=== PATIENT | female | born 1980 | race Caucasian/White ===

== ENCOUNTER 2020-03-27 08:38 | Outpatient (CLI) | payer OTHER, SELFPAY ==
--- NOTE | ~2020-03-27 | MM_ITS ---
EXAMINATION: MM screening don BI w chava HISTORY: Baseline screening mammogram TECHNIQUE: Craniocaudal and mediolateral oblique 3-D tomosynthesis images were obtained and synthetic 2-D images were generated. CAD analysis was submitted and interpreted. COMPARISON: None, baseline BREAST PARENCHYMAL COMPOSITION: The breasts are heterogeneously dense, which may obscure small masses . FINDINGS: There is no evidence of suspicious mass, calcification, or architectural distortion to sugg est malignancy in either breast. IMPRESSION: 1. No mammographic evidence of malignancy. 2. Recommend routine screening mammography in one year. BI-RADS Category 1: Negative Reviewed, dictated and finalized at location A.
== END 2020-03-27 08:39 | disposition home or self-care (01) ==
LOC: ANHIMG 08:41
PROVIDERS: PCP Physician Assistant; Visit Provider Obstetrics & Gynecology
DX: Z12.31 Encounter for screening mammogram for malignant neoplasm of breast (principal)
CPT/HCPCS: 77063; 77067

== ENCOUNTER 2020-08-03 06:54 | Outpatient (NON) | payer OTHER, SELFPAY ==
[2020-08-04 06:47] LABS: SARS-CoV-2 RNA PCR Negative
== END 2020-08-03 06:55 ==
LOC: ANHCOVIDDT 06:58
PROVIDERS: PCP Physician Assistant; Visit Provider Physician Assistant
DX: R52 Pain, unspecified (principal); Z20.828 Contact with and (suspected) exposure to other viral communicable diseases
CPT/HCPCS: 87635; C9803; U0003

== ENCOUNTER 2020-08-23 07:00 | Outpatient (NON) | payer OTHER, SELFPAY ==
[2020-08-24 12:14] LABS: SARS-CoV-2 RNA PCR Positive
== END 2020-08-23 07:01 ==
LOC: ANHCOVIDDT 07:05
PROVIDERS: PCP Physician Assistant; Visit Provider Physician Assistant
DX: U07.1 COVID-19 (principal)
CPT/HCPCS: 87635; C9803; U0003

== ENCOUNTER 2020-08-26 09:27 | Emergency (ER) | payer OTHER, SELFPAY ==
--- NOTE | 2020-08-26 09:29 | ED.GENADULT ---
HPI - General Adult General Chief complaint: Wound/Laceration Stated complaint: lt index finger laceration Time Seen by Provider: 08/26/20 09:29 Source: patient Mode of arrival: ambulatory Limitations: no limitations History of Present Illness HPI narrative: 40-year-old female patient presents to the [facility] with complaints of laceration to the tip of the left index finger. Patient states she was cutting some meat and the night slipped and cut her finger. Patient unsure when her last tetanus shot was however she states that her youngest child is about 7 years old. Denies any numbness or tingling to the fingertip at this time. Related Data Home Medications Medication Instructions Recorded Confirmed No Home Medications 08/26/20 08/26/20 Allergies Allergy/AdvReac Type Severity Reaction Status Date / Time No Known Allergies Allergy Unknown Verified 08/26/20 09:37 Review of Systems Review of Systems: Narrative: CONSTITUTIONAL: Denies fever, chills, or sweats. EYES: Denies visual changes, redness, or discharge. ENT: Denies rhinorrhea, congestion, sore throat, or otalgia. CARDIOVASCULAR: Denies chest pain, palpitations, or edema. RESPIRATORY: Denies cough or dyspnea. GASTROINTESTINAL: Denies abdominal pain, nausea, vomiting, or diarrhea. GENITOURINARY: Denies dysuria or hematuria. SKIN: Denies rash or itching. Positive laceration to left index finger MUSCULOSKELETAL: Denies back pain, joint pain, or myalgia. NEUROLOGIC: Denies headache, numbness, or weakness. PSYCHIATRIC: Denies anxiety or depression. [facility] Past Medical History Medical History (Updated 08/26/20 @ 09:46 by SANDRINE Montoya) No significant past medical history Family History Family History Mother Hypertension Family history of elevated blood lipids Family history of diabetes mellitus in first degree relative Father Patient's father is in good health Sibling Patient's sister is in good health Grandparent Family history of malignant neoplasm of breast Family history of malignant neoplasm of male breast Social History Social History Smoking status: Never smoker Alcohol intake: current Comments At the time of my signature I agree with nursing past medical history, surgical, social, and family history. There is no relevant family history pertinent to the presenting complaint. Exam Narrative: Exam Narrative: GENERAL: Well-appearing, well-nourished, and in no acute distress. HEAD: Normocephalic, atraumatic. EYES: PERRLA and EOMI. ENT: Nares clear, no rhinorrhea or epistaxis. Mucous membranes moist. NECK: Supple. No lymphadenopathy CHEST: Clear to auscultation. No respiratory distress. HEART: Regular rate and rhythm. No murmur heard. Normal peripheral pulses. ABDOMEN: Soft, nontender, nondistended, normal active bowel sounds. EXTREMITIES: Normal range of motion. No edema. SKIN: Warm, dry, no rash. Patient has a small laceration noted to the tip of the left index finger right above the DIP joint but does not involve the DIP joint. The laceration measures approximately 1 cm. There is no gaping noted does appear to be well approximated. There is no active bleeding at this time. Patient does have excellent range of motion to the finger as well as good cap refill. NEURO: No focal deficits. Alert and oriented x3. Course Vital Signs Vital signs: Vital Signs Temperature 37.3 C 08/26/20 09:38 Pulse Rate 78 08/26/20 09:38 Respiratory Rate 16 08/26/20 09:38 Blood Pressure 111/82 08/26/20 09:38 Pulse Oximetry 100 08/26/20 09:38 Temperature 37.3 C 08/26/20 09:38 Pulse Rate 78 08/26/20 09:38 Respiratory Rate 16 08/26/20 09:38 Blood Pressure 111/82 08/26/20 09:38 Pulse Oximetry 100 08/26/20 09:38 Vital signs reviewed Procedures Laceration Laceration 1: Date: 08/26/20 Time
[2020-08-26 09:38] VITALS: BP 111/82; PULSE 78; RESP 16; TEMP 37.3; O2SAT 100
[2020-08-26] MEDS: TETANUS,DIPHTHERIA,AC PERTUSSIS ADULT (0.5 ML) BOOSTRIX IM (09:43)
== END 2020-08-26 09:55 | disposition home or self-care (01) ==
PROVIDERS: Emergency Provider Nurse Practitioner Family; PCP Physician Assistant
DX: S61.211A Laceration without foreign body of left index finger without damage to nail, initial encounter (principal); W26.0XXA Contact with knife, initial encounter; Z23 Encounter for immunization
CPT/HCPCS: 12001; 90471; 90715; 99212; G0463

== ENCOUNTER 2021-01-21 12:58 | Emergency (ER) | payer OTHER, SELFPAY ==
[2021-01-21 13:07] VITALS: BP 137/90; PULSE 98; RESP 16; TEMP 36.5; O2SAT 100
--- NOTE | 2021-01-21 13:36 | ED.URI ---
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 She also reports headache. Pain significantly increases with swallowing. She currently rates her pain 10/10. Denies cough, congestion, rhinorrhea, shortness of breath, difficulty swallowing, nausea, vomiting, diarrhea, or any additional symptoms. She has been vaccinated against COVID-19. She has tried no [id number] interventions prior to arrival. States she has had strep throat a few times in the past and her symptoms were very similar. MD elicited complaint: sore throat Related Data Home Medications Medication Instructions Recorded Confirmed No Home Medications 08/26/20 01/21/21 Allergies Allergy/AdvReac Type Severity Reaction Status Date / Time No Known Allergies Allergy Unknown Verified 01/21/21 13:02 Review of Systems Review of Systems: Narrative: CONSTITUTIONAL: Denies body aches, fever, chills, or sweats. EYES: Denies visual changes, redness, or discharge. ENT: Denies rhinorrhea, congestion, or otalgia.+ Sore throat CARDIOVASCULAR: Denies chest pain, palpitations, or edema. RESPIRATORY: Denies cough or dyspnea. GASTROINTESTINAL: Denies abdominal pain, nausea, vomiting, or diarrhea. GENITOURINARY: Denies dysuria or hematuria. SKIN: Denies rash, itching, or wounds. MUSCULOSKELETAL: Denies back pain, joint pain, or myalgia. NEUROLOGIC: Denies headache, numbness, tingling, or weakness. PSYCH: Denies depression or anxiety. [facility] Past Medical History Medical History (Updated 01/21/21 @ 13:38 by Conchita Frazier, SANDRINE, ) No significant past medical history Family History Family History Mother Hypertension Family history of elevated blood lipids Family history of diabetes mellitus in first degree relative Father Patient's father is in good health Sibling Patient's sister is in good health Grandparent Family history of malignant neoplasm of breast Family history of malignant neoplasm of male breast Social History Social History Smoking status: Never smoker Alcohol intake: current Gender identity (if verbalized by the patient): Female Sexual Orientation (if Verbalized by the Patient): Straight or Heterosexual Comments At time of signature, I have reviewed and agree with nursing past medical, surgical, social and family history unless otherwise noted. Please see nursing chart for further information. There is no relevant family history pertinent to the presenting complaint Exam Narrative: Exam Narrative: GENERAL: Well-appearing, well-nourished, and in moderate pain distress. HEAD: Normocephalic, atraumatic. EYES: EOMI. No redness or drainage. Conjunctivae normal. ENT: Mucous membranes pink and moist. Nares clear. No rhinorrhea. TMs normal bilaterally. Throat normal. Uvula midline. NECK: Normal AROM. Supple. No lymphadenopathy. CHEST: No respiratory distress. Clear to auscultation. HEART: Regular rate and rhythm. No murmur appreciated. Normal peripheral pulses. EXTREMITIES: Normal range of motion. No edema. SKIN: Warm, dry, no rash. Capillary refill normal. Normal skin turgor. NEURO: No focal deficits. Alert and oriented x3. Gait steady. PSYCH: Normal affect. No signs of depression or anxiety. Course Course Emergency Course: Patient's exam is essentially normal. It is possible that since her symptoms only began 3 hours prior to arrival that it is too early to detect strep throat on a rapid screening test. Patient became tearful when I told he
== END 2021-01-21 13:44 | disposition home or self-care (01) ==
PROVIDERS: Emergency Provider Nurse Practitioner; PCP Physician Assistant
DX: J02.9 Acute pharyngitis, unspecified (principal)
CPT/HCPCS: 87081; 87880; 99213; G0463

== ENCOUNTER → 2021-04-09 09:14 | Outpatient (CLI) | payer OTHER, SELFPAY ==
--- NOTE | ~2021-04-09 | CT_ITS ---
EXAMINATION: CT sinus wo con DATE: 04/09/2021 09:29 INDICATION: Sinusitis TECHNIQUE: Computed tomography (CT) of the paranasal sinuses was performed without intravenous contra st. The dose-length product was 273.81 mGy-cm. Automated exposure control and iterative reconstructio n technique were employed. COMPARISON: None FINDINGS: There is mucosal thickening of the frontal, ethmoid, sphenoid and maxillary sinuses. The os tiomeatal units are occluded. Mastoids are pneumatized. Leftward nasal septal deviation. IMPRESSION: 1. Moderate pansinusitis. Reviewed, dictated and finalized at location A. IMPRESSION: 1. Moderate pansinusitis.
== END ==
PROVIDERS: Visit Provider Nurse Practitioner Family
DX: J32.9 Chronic sinusitis, unspecified (principal)
CPT/HCPCS: 70486

== ENCOUNTER 2021-04-29 15:52 | Outpatient (CLI) | payer OTHER, SELFPAY ==
--- NOTE | ~2021-04-29 | MM_ITS ---
EXAMINATION: MM screening [facility] BI w chava HISTORY: Screening mammogram TECHNIQUE: Craniocaudal and mediolateral oblique 3-D tomosynthesis images were obtained and synthetic 2-D images were generated. CAD analysis was submitted and interpreted. COMPARISON: 03/27/2020 BREAST PARENCHYMAL COMPOSITION: The breasts are heterogeneously dense, which may obscure small masses . FINDINGS: RIGHT BREAST: An obscured mass is present in the anterior third of the slightly upper and outer breas t. LEFT BREAST: An asymmetry is present in the posterior third of the central breast on the craniocaudal view. IMPRESSION: 1. Bilateral breast findings as described above. 2. Additional mammographic views and possible breast ultrasound are recommended. BI-RADS Category 0: Incomplete: Needs additional imaging evaluation. Reviewed, dictated and finalized at location A. IMPRESSION: 1. Bilateral breast findings as described above. 2. Additional mammographic views and possible breast ultrasound are recommended . BI-RADS Category 0: Incomplete: Needs additional imaging evaluation.
== END 2021-04-29 15:53 | disposition home or self-care (01) ==
LOC: ANHIMG 15:54
PROVIDERS: Visit Provider Obstetrics & Gynecology
DX: Z12.31 Encounter for screening mammogram for malignant neoplasm of breast (principal); R92.8 Other abnormal and inconclusive findings on diagnostic imaging of breast
CPT/HCPCS: 77063; 77067

== ENCOUNTER 2021-05-24 13:49 | Outpatient (CLI) | payer OTHER, SELFPAY ==
--- NOTE | ~2021-05-24 | MMUS_ITS ---
EXAMINATION: MM diagnostic don BI w chava, US breast BI complete HISTORY: Abnormal findings on 04/29/2021 screening mammogram TECHNIQUE: Additional 3-D tomosynthesis images of both breasts were performed and synthetic 2-D image s were generated. CAD analysis was submitted and interpreted. High resolution complete bilateral anjana st ultrasound was performed. COMPARISON: 04/29/2021 bilateral digital screening mammogram FINDINGS: MAMMOGRAPHIC FINDINGS: There is a 2 cm partially circumscribed rounded opacity in the outer mid right breast. There is heterogeneously dense breast tissue, which may obscure additional masses. ULTRASOUND: Right breast: 12:00 1 cm from nipple: 2.1 x 2 x 2.3 cm simple cyst with through transmission posterior enhancement 6:00 4 cm from nipple: 5.4 x 4.0 x 7.1 mm simple cyst No suspicious solid lesion or shadowing is detected in the right breast. Left breast: No suspicious mass or shadowing, cyst or other significant finding. IMPRESSION: 1. Benign findings 2. Routine mammographic screening is recommended. BI-RADS Category 2: Benign finding(s). Reviewed, dictated and finalized at location A. IMPRESSION: 1. Benign findings 2. Routine mammographic screening is recommended. BI-RADS Category 2: Benign finding(s).
== END 2021-05-24 13:50 | disposition home or self-care (01) ==
LOC: ANHIMG 13:54
PROVIDERS: Visit Provider Obstetrics & Gynecology
DX: R92.8 Other abnormal and inconclusive findings on diagnostic imaging of breast (principal)
CPT/HCPCS: 76641; 77062; 77066; G0279

== ENCOUNTER 2021-12-02 01:27 | Day surgery (SDC) | payer OTHER, SELFPAY ==
[2021-11-21 14:45] VITALS: BMI 29.2
--- NOTE | 2021-11-30 12:48 | P.PNAN_ITS ---
Anes - Initial Pre Proc Eval Procedure: Operation Date: 12/02/21 08:30 Proposed Procedures p Colonoscopy - Rich Spears MD Date/Time: 11/30/21 12:48 Surgeon: Rich Spears MD Pre Op Diagnosis: family hx of colon ca, constipation Patient Data Age: 41 Gender: F Height: 1.63 m Weight: 77.2 kg Allergies Allergy/AdvReac Type Severity Reaction Status Date / Time No Known Allergies Allergy Unknown Verified 12/02/21 07:08 Home Medications Medication Instructions Recorded Confirmed Type linaclotide [Linzess] 145 mcg PO DAILY 11/21/21 11/21/21 History tolterodine 4 mg PO DAILY 11/21/21 11/21/21 History Patient hx anesthesia problems: none Family hx anesthesia problems: none Results Review: All pre-operative results and documents have been reviewed as part of the pre-operative evaluation. [facility] Past Medical History Medical History (Updated 12/02/21 @ 07:55 by Rich Spears MD) Anxiety Family history of colon cancer in mother GERD (gastroesophageal reflux disease) IBS (irritable bowel syndrome) No significant past medical history Family History Family History Mother Hypertension Family history of elevated blood lipids Family history of diabetes mellitus in first degree relative Father Patient's father is in good health Sibling Patient's sister is in good health Grandparent Family history of malignant neoplasm of breast Family history of malignant neoplasm of male breast Social History Social History (System 11/19/21 @ 12:37 by Gaby Moore) Smoking status: Never smoker Alcohol intake: current Drinks per week: 2 Alcohol use details: Socially Substance use type: does not use Living arrangements: alone Gender identity (if verbalized by the patient): Female Sexual Orientation (if Verbalized by the Patient): Straight or Heterosexual Spiritual care concerns: No Anes - Eval Final PreProcedure Day of Procedure 11/30/21 12:48 Patient weight: overweight Heart: regular rate and rhythm Lungs: clear to auscultation and normal air movement Airway: Mallampati scale class II Neurological: alert and oriented Last oral intake: >/= 8 hours ASA classification: II Emergent: no Anesthetic plan: proceed Anesthesia type and monitoring: general GIVS and standard monitoring Results Review: All pre-operative results and documents have been reviewed as part of the pre-operative evaluation. Informed Consent: The patient's anesthetic plan and its attendant risks and benefits were discussed with the patient/family/POA. Questions were solicited and answers provided to the satisfaction of the patient/family/POA.
[2021-12-02 07:14] VITALS: BP 141/81; PULSE 88; RESP 20; TEMP 36.6; O2SAT 99; BMI 29.5
[2021-12-02] MEDS: LACTATED RINGERS 1,000 ML 150 ML IV CONT (07:24)
--- NOTE | 2021-12-02 07:54 | PM.HPGS ---
History of Present Illness History of Present Illness Consent: Risks, benefits, and alternatives have been discussed and questions answered. Patient agrees to proceed with procedure. Chief complaint: family hx of colon ca, constipation Narrative: Sameera Arceo is a 41 year old female here for first screening colonoscopy, mother had colon cancer Review of Systems Constitutional: Constitutional: Denies headache(s) and Denies weakness Eyes: Eyes: Denies blurry vision ENT: Reports Normal hearing present, Denies headache(s) and Denies neck pain Cardiovascular: Cardiovascular: Denies chest pain and Denies dyspnea Respiratory: Respiratory: Denies dyspnea Gastrointestinal: Gastrointestinal: Reports no additional gastrointestinal complaints Genitourinary: Genitourinary: Denies dysuria Musculoskeletal: Musculoskeletal: Denies neck pain Integumentary/Breasts: Skin/Breast: Denies dry skin Neurologic: Reports Normal hearing present, Denies headache(s) and Denies weakness Psychiatric: Psychiatric: Denies anxiety Endocrine: Endocrine: Denies change in body appearance Hematologic/Lymphatic: Hematologic/Lymphatic: Denies easy bleeding Allergic/Immunologic: Allergic/Immunologic: Denies urticaria PMFSH Past Medical History Medical History (Updated 12/02/21 @ 07:55 by Rich Spears MD) Anxiety Family history of colon cancer in mother GERD (gastroesophageal reflux disease) IBS (irritable bowel syndrome) No significant past medical history Family History Family History Mother Hypertension Family history of elevated blood lipids Family history of diabetes mellitus in first degree relative Father Patient's father is in good health Sibling Patient's sister is in good health Grandparent Family history of malignant neoplasm of breast Family history of malignant neoplasm of male breast Social History Social History (System 11/19/21 @ 12:37 by Gaby Moore) Smoking status: Never smoker Alcohol intake: current Drinks per week: 2 Alcohol use details: Socially Substance use type: does not use Living arrangements: alone Gender identity (if verbalized by the patient): Female Sexual Orientation (if Verbalized by the Patient): Straight or Heterosexual Spiritual care concerns: No Meds Home Medications and Allergies Home Medications Medication Instructions Recorded Confirmed Type linaclotide [Linzess] 145 mcg PO DAILY 11/21/21 11/21/21 History tolterodine 4 mg PO DAILY 11/21/21 11/21/21 History Allergies Allergy/AdvReac Type Severity Reaction Status Date / Time No Known Allergies Allergy Unknown Verified 12/02/21 07:08 Vital Signs Vital Signs - 24 hr 12/02/21 07:14 Temperature 97.9 F Pulse Rate 88 Respiratory Rate 20 Blood Pressure 141/81 H Pulse Oximetry 99 Exam Const: General: comfortable and no acute distress HENMT: General nose exam: Normal nares present Eyes: General: appearance normal, both eyes and all related structures Neck: Neck: no JVD Resp: Auscultation: clear to auscultation bilaterally Cardio: Rate: regular rate Rhythm: regular rhythm GI: Inspection: non-distended GI Palp: Yes Soft to palpation Skin: General skin exam: normal color Neuro: General: gait normal Speech: normal speech Extrem: General: normal to inspection Psych: Mental Status: mental status grossly normal Assessment and Plan Assessment and plan (1) Family history of colon cancer in mother: Code(s): Z80.0 - Family history of malignant neoplasm of digestive organs Status: Acute Assessment and Plan: colonoscopy
[2021-12-02 08:17] VITALS: BP 104/72; PULSE 68; RESP 16; O2SAT 100
[2021-12-02 08:27] VITALS: BP 100/60; PULSE 60; RESP 18; O2SAT 100
[2021-12-02 08:37] VITALS: BP 101/65; PULSE 61; RESP 16; O2SAT 100
== END 2021-12-02 08:51 | disposition home or self-care (01) ==
PROVIDERS: PCP Physician Assistant; Visit Provider Internal Medicine Gastroenterology
PROC: 0DJD8ZZ Inspection of Lower Intestinal Tract, Via Natural or Artificial Opening Endoscopic (ICD-10-PCS; CPT 45378; principal; 2021-12-02 08:30)
DX: Z12.11 Encounter for screening for malignant neoplasm of colon (principal); K64.8 Other hemorrhoids; K58.1 Irritable bowel syndrome with constipation; Z80.0 Family history of malignant neoplasm of digestive organs
CPT/HCPCS: 45378; J2001; J2704; J7120

== ENCOUNTER 2022-04-01 10:51 | Emergency (ER) | payer OTHER, SELFPAY ==
--- NOTE | 2022-04-01 10:59 | ED.FEMALEGU ---
HPI - Female Genitourinary General Chief complaint: Urogenital-Female Stated complaint: uti complaint Time Seen by Provider: 04/01/22 11:10 Source: patient Mode of arrival: ambulatory Limitations: no limitations History of Present Illness HPI Narrative: Ms. Lance is a 42-year-old female patient presenting to the clinic today with complaints of left sided abdominal discomfort and urinary symptoms that began Thursday. She reports that she had a little bit of burning on Thursday night but nothing since. States that her period should not be coming for another 3 weeks and she has some cramping in the left abdomen. Had intercourse with her on Thursday and did not have any pain or discomfort with this. She denies any vaginal discharge or odors. She has a history of constipation and last bowel movement was 2 days ago. She denies any blood in her stools. Related Data Home Medications Medication Instructions Recorded Confirmed linaclotide 145 mcg capsule 145 mcg PO DAILY 11/21/21 04/01/22 (Linzess) tolterodine 4 mg capsule,extended 4 mg PO DAILY 11/21/21 04/01/22 release 24 hr fluoxetine 10 mg capsule 10 mg PO DAILY 04/01/22 04/01/22 Allergies Allergy/AdvReac Type Severity Reaction Status Date / Time No Known Allergies Allergy Unknown Verified 04/01/22 11:03 Review of Systems Review of Systems: Pertinent positives per HPI. Patient denies any fever, chills, rash, headache, visual changes, dizziness, cough, runny nose, sore throat, shortness of breath, chest pain, palpitations, nausea, vomiting, diarrhea, or constipation PMFSH Past Medical History Medical History Anxiety Family history of colon cancer in mother GERD (gastroesophageal reflux disease) IBS (irritable bowel syndrome) No significant past medical history Family History Family History Mother Hypertension Family history of elevated blood lipids Family history of diabetes mellitus in first degree relative Father Patient's father is in good health Sibling Patient's sister is in good health Grandparent Family history of malignant neoplasm of breast Family history of malignant neoplasm of male breast Social History Social History Smoking status: Never smoker Alcohol intake: current Drinks per week: 2 Alcohol use details: Socially Substance use type: does not use Gender identity (if verbalized by the patient): Female Sexual Orientation (if Verbalized by the Patient): Straight or Heterosexual Spiritual care concerns: No Comments At the time of my signature, I reviewed and agree with the nursing past medical, surgical, social, and family history. There is no relevant family history pertinent to the patient complaint. Exam Narrative: General: Well-developed, well nourished, in no apparent distress. Head: Normocephalic, atraumatic. Cardio: Regular rate and rhythm, s1 and s2 normal, no murmur appreciated. Resp: Clear to auscultation bilaterally, no rhonchi, rales, wheezing or rubs. Abdomen: Soft, pliable, bowel sounds present in all quadrants, mild tender to palpation over the left mid quadrant and over the bladder, no organomegly, no CVAT tenderness. Course Course Emergency Course: Portions of this record may have been created with voice recognition software. Level of Care: Express Care Visit Vital Signs Vital signs: Vital signs reviewed MDM - Female Genitourinary MDM Narrative Medical decision making narrative: At the time of visit patient is resting comfortably on exam table. UA positive for 3+ leukocytes and 1+ blood. We will send for culture. I will start the patient on a prescription for Macrobid and supportive measures were discussed. She voiced understanding of discharge instructions and agrees to the treatment plan. Mike
[2022-04-01 11:03] VITALS: BP 123/74; PULSE 66; RESP 18; TEMP 36.4; O2SAT 100
== END 2022-04-01 11:25 | disposition home or self-care (01) ==
PROVIDERS: Emergency Provider Nurse Practitioner Family; PCP Physician Assistant
DX: N39.0 Urinary tract infection, site not specified (principal); K21.9 Gastro-esophageal reflux disease without esophagitis; F41.9 Anxiety disorder, unspecified
CPT/HCPCS: 81003; 87086; 99213; G0463

== ENCOUNTER 2022-06-19 16:27 | Outpatient (CLI) | payer OTHER, SELFPAY ==
--- NOTE | ~2022-06-19 | MM_ITS ---
EXAMINATION: MM screening [facility] BI w chava HISTORY: Screening mammogram TECHNIQUE: Craniocaudal and mediolateral oblique 3-D tomosynthesis images were obtained and synthetic 2-D images were generated. CAD analysis was submitted and interpreted. COMPARISON: 05/24/2021, 04/29/2021, 03/27/2020 BREAST PARENCHYMAL COMPOSITION: The breasts are heterogeneously dense, which may obscure small masses . FINDINGS: No suspicious mass, calcification, or architectural distortion are identified in either rabia ast to suggest malignancy. There has been no suspicious interval change. IMPRESSION: 1. No mammographic evidence of malignancy. 2. Recommend routine screening mammography in one year. BI-RADS Category 1: Negative Reviewed, dictated and finalized at location A.
== END 2022-06-19 16:28 | disposition home or self-care (01) ==
PROVIDERS: PCP Physician Assistant; Visit Provider Obstetrics & Gynecology
DX: Z12.31 Encounter for screening mammogram for malignant neoplasm of breast (principal)
CPT/HCPCS: 77063; 77067

== ENCOUNTER 2023-06-26 19:44 | Emergency (ER) | payer OTHER, SELFPAY ==
[2023-06-26 20:10] VITALS: BP 132/92; PULSE 88; RESP 16; TEMP 36.3; O2SAT 100
== END 2023-06-26 22:52 | disposition left against medical advice (07) ==
LOC: ANHED 22:48
PROVIDERS: PCP Physician Assistant
DX: S09.90XA Unspecified injury of head, initial encounter (principal)
CPT/HCPCS: 99199

== ENCOUNTER 2023-08-25 07:42 | Outpatient (CLI) | payer OTHER, SELFPAY ==
--- NOTE | ~2023-08-25 | MM_ITS ---
EXAMINATION: MM screening don BI w chava HISTORY: Screening TECHNIQUE: Craniocaudal and mediolateral oblique 3-D tomosynthesis images were obtained and synthetic 2-D images were generated. CAD analysis was submitted and interpreted. COMPARISON: Comparison to multiple prior studies sequentially, with oldest reviewed study dated 03/27. BREAST PARENCHYMAL COMPOSITION: The breasts are heterogeneously dense, which may obscure small masses . FINDINGS: There is no evidence of suspicious mass, calcification, or architectural distortion to sugg est malignancy in either breast. There has been no suspicious interval change. IMPRESSION: 1. No mammographic evidence of malignancy. 2. Recommend routine screening mammography in one year. BI-RADS Category 1: Negative Reviewed, dictated and finalized at location A. MA MANAGER
== END 2023-08-25 07:43 | disposition home or self-care (01) ==
PROVIDERS: PCP Physician Assistant; Visit Provider Obstetrics & Gynecology
DX: Z12.31 Encounter for screening mammogram for malignant neoplasm of breast (principal)
CPT/HCPCS: 77063; 77067

== ENCOUNTER 2024-07-18 10:13 | Emergency (ER) | payer OTHER, SELFPAY ==
--- NOTE | ~2024-07-18 | XR_ITS ---
XR chest 2V Ordering provider: Estrella Ruelas NP History: 44 years Female with . fatigue, SOB with exertion . Comparison: None. FINDINGS: MEDIASTINUM: The cardiac silhouette is not enlarged. LUNGS: No infiltrates, effusions or pneumothorax. OTHER: No free air under the diaphragm. IMPRESSION: No acute cardiopulmonary pathology. Reviewed, dictated and finalized at location A. IED PSYCHOLOGY TEACHER
[2024-07-18 10:26] VITALS: BP 130/72; PULSE 95; RESP 18; TEMP 36.4; O2SAT 99
--- NOTE | 2024-07-18 10:38 | ED.URI ---
HPI - URI/Sore Throat General Chief Complaint: Upper Respiratory Infection Stated Complaint: feeling illness Time Seen by Provider: 07/18/24 10:38 Source: patient Mode of arrival: ambulatory Limitations: no limitations History of Present Illness HPI Narrative: 44 yo F presents with c/o fatigue, dull headache for approx. 2 wks. She states prior to that she had URI symptoms that lasted approx. 2 wks and have resolved. exposure to walking pneumonia at work. No CP or SOB. Also has not had period. had vasectomy and she takes hormones for perimenopause but would like test. all systems reviewed and negative except as noted above. Related Data Home Medications Medication Instructions Recorded Confirmed Testosterone Pellet 1 pellet DIRECTED 07/18/24 07/18/24 progesterone micronized 200 mg 200 mg DIRECTED 07/18/24 07/18/24 capsule sertraline 50 mg tablet 50 mg DIRECTED 07/18/24 07/18/24 Allergies Allergy/AdvReac Type Severity Reaction Status Date / Time No Known Allergies Allergy Unknown Verified 07/18/24 10:38 Review of Systems Review of Systems: CONSTITUTIONAL: Denies fever, chills, or sweats. reports fatigue. EYES: Denies visual changes, redness, or discharge. ENT: Denies rhinorrhea, congestion, sore throat, or otalgia. CARDIOVASCULAR: Denies chest pain, palpitations, or edema. RESPIRATORY: Denies cough or dyspnea. GASTROINTESTINAL: Denies abdominal pain, nausea, vomiting, or diarrhea. GENITOURINARY: Denies dysuria or hematuria. SKIN: Denies rash or itching. MUSCULOSKELETAL: Denies back pain, joint pain, or myalgia. NEUROLOGIC: Reports headache. Denies numbness, or weakness. PSYCHIATRIC: Denies anxiety or depression. All other systems reviewed are negative, except as documented in HPI. [facility] Past Medical History Medical History Anxiety Family history of colon cancer in mother GERD (gastroesophageal reflux disease) IBS (irritable bowel syndrome) No significant past medical history Family History Family History Mother Hypertension Family history of elevated blood lipids Family history of diabetes mellitus in first degree relative Father Patient's father is in good health Sibling Patient's sister is in good health Grandparent Family history of malignant neoplasm of breast Family history of malignant neoplasm of male breast Social History Social History Smoking status: Never smoker Alcohol intake: current Drinks per week: 2 Alcohol use details: Socially Substance use type: does not use Living arrangements: alone Gender identity (if verbalized by the patient): Female Sexual Orientation (if Verbalized by the Patient): Straight or Heterosexual Spiritual care concerns: No Comments At time of signature, agree with nursing past medical, surgical, social and family history. There is no relevant family history pertinent to the presenting complaint. Exam Narrative: GENERAL: This is a well-nourished, well-developed patient, in no apparent distress. HEAD: normocephalic, atraumatic. EYES: PERRL. Sclera clear/white. Vision is grossly intact. EARS: External ears normal, auditory canals clear and without drainage, TMs normal without perforation. Hearing grossly intact. NOSE: External nose normal with no obvious nasal discharge, nares without redness, no rhinorrhea. THROAT: Mucous membranes moist, posterior pharynx clear. NECK: Neck supple, non-tender without lymphadenopathy, masses or thyromegaly. CARDIOVASCULAR: Regular rate and rhythm without murmurs, gallops, or rubs. RESPIRATORY: Clear to auscultation. Breath sounds equal bilaterally. No wheezes, rales, or rhonchi. SKIN: warm, Dry, intact with no suspicious lesions or rash, good texture and turgor. NEURO: awake, alert, and oriented to person, place and time. There were no obvious focal neurologic abnormalities. EXTREMITIES: No joint tenderness, effusion, or edema noted. Course Course Level of Care: Express Care Visit Vital Signs Vital signs: Vital Signs Temperature 36.4 C L 07/18/24 10:26 Pulse Rate 95 07/18/24 10:26 Respiratory Rate 18 07/18/24 10:26 Blood Pressure 130/72 07/18/24 10:26 Pulse Oximetry 99 07/18/24 10:26 Oxygen Delivery Room Air 07/18/24 10:26 Temperature 36.4 C L 07/18/24 10:26 Pulse Rate 95 07/18/24 10:26 Respiratory Rate 18 07/18/24 10:26 Blood Pressure 130/72 07/18/24 10:26 Pulse Oximetry 99 07/18/24 10:26 Oxygen Delivery Room Air 07/18/24 10:26 Reviewed MDM - URI/Sore Throat MDM Narrative Medical decision making narrative: patient's exam normal. Normal chest x-ray. Negative urine test. Recommend follow-up with primary care physician for further evaluation with outpatient labs. Patient is aware of diagnosis, understands and agrees to treatment plan. Anticipatory guidance given. Patient agrees to follow-up as directed and is aware of reasons to seek care at the emergency department. Portions of this record may have been created with voice recognition software Discharge Plan Discharge Clinical Impression: Fatigue Qualifiers: Fatigue type: unspecified Qualified Code(s): R53.83 - Other fatigue Patient Disposition: Home, Self-Care Condition: Stable Instructions: Fatigue (ED) Additional Instructions: your chest x-ray was normal today. Your urine test was negative. I recommend following up with your primary care physician to further evaluate your symptoms. Prescriptions: No Action sertraline 50 mg tablet 50 mg DIRECTED progesterone micronized 200 mg capsule 200 mg DIRECTED Testosterone Pellet 1 pellet DIRECTED Follow-up/Referrals: Benoit,KATHERINE Brush [Primary Care Provider] - Stand Alone Forms: Work/School Release IP Time of Disposition: 11:21
[2024-07-18 11:24] LABS: BEDSIDEPREGUCG Negative (Negative)
== END 2024-07-18 11:25 | disposition home or self-care (01) ==
PROVIDERS: Emergency Provider Nurse Practitioner Family; PCP Physician Assistant
DX: R53.83 Other fatigue (principal); K21.9 Gastro-esophageal reflux disease without esophagitis; F41.9 Anxiety disorder, unspecified
CPT/HCPCS: 71046; 81025; 99213; G0463

== ENCOUNTER 2024-07-20 11:12 | Outpatient (CLI) | payer OTHER, SELFPAY ==
--- NOTE | ~2024-07-20 | US_ITS ---
Renal-Bladder ultrasound Clinical History: Abnormal findings of blood chemistry Technique: Real-time sonographic imaging of the kidneys and urinary bladder was performed. Findings: The right kidney measures 9.8 cm in length and the left kidney measures 10.0 cm. There is n o hydronephrosis or renal calculus identified. Renal cortical echogenicity is within normal limits. N o renal mass lesion is identified. The urinary bladder is moderately distended at the time of this exam. No intraluminal echoes are iden tified. No abnormal wall thickening is seen. Impression: Unremarkable ultrasound of the kidneys and urinary bladder. Reviewed, dictated and finalized at location M. LATION ENGINEER Impression: Unremarkable ultrasound of the kidneys and urinary bladder.
== END 2024-07-20 11:13 | disposition home or self-care (01) ==
PROVIDERS: PCP Physician Assistant; Visit Provider Physician Assistant
DX: R79.89 Other specified abnormal findings of blood chemistry (principal)
CPT/HCPCS: 76775

== ENCOUNTER 2024-11-18 15:08 | Outpatient (CLI) | payer OTHER, SELFPAY ==
--- NOTE | ~2024-11-18 | XR_ITS ---
XR ankle LT min 3V Ordering provider: Otoniel Eaton, [place] History: . ANKLE PAIN . Comparison: None. FINDINGS: BONES: No acute fracture or dislocation. JOINT SPACES: The ankle mortise is normal. SOFT TISSUES: Normal. IMPRESSION: No acute osseous abnormality left ankle. Reviewed, dictated and finalized at location A. SCHOOL ASSISTANT PRINCIPAL
== END 2024-11-18 15:09 | disposition home or self-care (01) ==
LOC: MICIMG 15:14
PROVIDERS: PCP Chiropractor Rehabilitation; Visit Provider Chiropractor Rehabilitation
DX: M25.572 Pain in left ankle and joints of left foot (principal)
CPT/HCPCS: 73610

== ENCOUNTER 2025-01-23 15:12 | Outpatient (CLI) | payer OTHER, SELFPAY ==
--- NOTE | ~2025-01-23 | MM_ITS ---
EXAMINATION: MM screening don BI w chava HISTORY: Screening mammogram TECHNIQUE: Craniocaudal and mediolateral oblique 3-D tomosynthesis images were obtained and synthetic 2-D images were generated. CAD analysis was submitted and interpreted. COMPARISON: 09/02/2023, 06/19/2022, 04/29/2021, 03/27/2020 BREAST PARENCHYMAL COMPOSITION:Dense: The breasts are heterogeneously dense, which may obscure small masses. FINDINGS: No suspicious mass, calcification, or architectural distortion are identified in either rabia ast to suggest malignancy. There has been no suspicious interval change. IMPRESSION: No mammographic evidence of malignancy. Recommend routine screening mammography in one year. BI-RADS Category 1: Negative Reviewed, dictated and finalized at location .
--- OUTSIDE RECORDS SUMMARY | 2025-01-23 15:16 | XMS_ITS | Data Portability ---
Author Organization [facility], Main Office Address [address] [place] [address] Assessment No assessment recorded. Plan of Treatment Reminders Order Date Submit Date Provider Last Modified By Organization Details Last Modified Time Details Appointments None recorded. Lab rf (rheumatoid factor), serum 2022 023 [email or web address] [facility], [address], [place], [address], 3 10:43:17 C reactive protein, QN, serum or plasma 2022 023 [email or web address] [facility], [address], [place], [address], 3 10:43:46 ESR (erythrocyt e sedimentati on rate), blood 2022 023 [email or web address] [facility], [address], [place], [address], 3 10:43:37 uric acid, serum or plasma 2022 023 [email or web address] [facility], [address], [place], [address], 3 10:43:54 ccp (cyclic citrullinat ed peptide) iga+igg, serum 2022 023 [email or web address] [facility], [address], [address], [place], [address], 3 10:43:26 ALONDRA (antinuclea r antibodies) screen, ifa, serum 2022 023 [facility], [address], [address] [address], [place], [address], 3 10:45:57 Referral None recorded. Procedures None recorded. Surgeries endoscopy, nasal/sinus , w/ maxillary antrostomy & tissue removal (SURG) 2023 024 [email or web address] Not available 4 17:21:29 endoscopy, nasal/sinus , with frontal sinus exploration (SURG) 2023 024 [email or web address] Not available 4 17:21:30 endoscopy, nasal/sinus , w/ total ethmoidecto my (SURG) 2023 024 [email or web address] Not available 4 17:21:29 endoscopy with removal of sphenoid sinus tissue (SURG) 2023 024 [email or web address] Not available 4 11:39:12 Imaging None recorded. Medication Orders cefdinir 300 mg capsule 2023 024 [facility] #[id number], [address], [place], [id number], 4 16:53:05 Medrol (Ricardo) 4 mg tablets in a dose pack 2023 024 [facility] #[id number], [address], [place], [id number], 4 16:47:07 cefdinir 300 mg capsule 2022 023 [email or web address] [facility] #44462, [address], [place], [id number], 4 16:42:28 Medrol (Ricardo) 4 mg tablets in a dose pack 2022 023 [email or web address] [facility] #59742, [address] [facility], [place], [place], [id number], 16:42:31 Patient TargetsNo targets recorded. Patient Instructions Encounter Date Encounter Id Patient Instructions Last Modified By Organization Details Last Modified Time 12/17/2023 [id number] he has also an excellent candidate for Dupixent given her nasal polyposis and this will be ordered [email or web address] Not available 12/17/2023 16:46:14 Reason for Referral None Reported. Results Created Date Observation Date Name Description Value Unit Range Abnormal Flag Note LastModifiedBy Organization Detail LastModifiedTime 06/30/20 23 06/30/2023 CT, head, w/o contr ast No observ ation record ed. [facility] [address] [place] [address], [place], [address], 06/30/2023 15:48:25 10/09/19 24 08/25/2023 MAMMO , scree latricia, digit al, bilat eral No observ ation record ed. [address], [place], [address], 10/09/2023 11:44:01 10/15/[address], maxil lofac ial, w/o contr ast [facility] [address] [place] [address] Patien t Name: DAMIEN MONAE Access ion #: [id number] Sex: F : 1979 9 Dictat ed By: Hector Reddy ms Attend ing Physic benja: NORRIS CANTRELL Orderi Physic benja: NORRIS CANTRELL Exam Date: 2023 15:10 PM Exam Name: CT MAXILL OFACIA L WO Admitt ing Diagno sis(es ): INDICA TION: Chroni c sinusi tis EXAM DATE: 10/15/19 24 3:10 PM COMPAR JULES: CT scan of the head perfor med on 2022 TECHNI QUE: CT of the sinuse s withou t intrav enous contra st. RADIAT ION DOSE: CTDIvo l: 20.2 mGy, DLP: 546.1 mGy*cm FINDIN GS: There is partia l opacif icatio n of the fronta l sinuse s. There is opacif icatio n of the bilate ral ethmoi d air cells. There is mucous membra ne thicke latricia presen t in the bilate ral maxill yenny sinuse s and spheno id sinus. There are no air-fl uid levels . The mastoi d air cells are clear. The ostiom eatal unit comple xes appear patent bilate rally. The cribri form plate and lamina papyra cea appear grossl y intact . No abnorm ality of the orbits or globes is identi fied. The visual ized brain is unrema rkable . The surrou nding soft tissue s and osseou s struct ures are unrema rkable . There is flatte latricia of the bilate ral mandib ular condyl es and severe narrow ing of the tempor omandi bular joints . IMPRES ISABELL: Parana yvonne sinus diseas e as descri bed. Bilate ral tempor al mandib ular osteoa rthrit is. Electr onical ly Signed by: Hector Reddy ms at 2023 16:07: 41 PM Page 1 [email or web address] [facility] (Imaging) [address] [place], [address], 10/28/2023 12:51:56 10/26/19 24 10/23/2023 CT, sinus es, w/o contr ast No observ ation record ed. [facility] [address] [place] [address], [place], [address], 10/26/2023 08:46:13 Result Notes None recorded. Problems Name Problem SNOMED Code Status Onset Date Resolution Date Notes Provider Name and Address Organization Details Recorded Time Amenorrhea 89500790 Active 2021 Not Available [facility] 3 20:39:16 Generalize d anxiety disorder 65193693 Active 2018 Not Available [facility] 3 20:39:16 Lower urinary tract symptoms 964552057 Active 2021 Not Available [facility] 3 20:39:17 Irritable bowel syndrome characteri zed by constipati on 096947305 Active 2021 Not Available [facility] 3 20:39:17 Anxiety 19597508 Active 2021 Not Available [facility] 3 20:39:17 Failure to lose weight 09304279 Active 2021 Not Available [facility] 3 20:39:17 Pain of multiple joints 62532967 Active 2022 BALTA Dalton [address], [address], [place], [address] , [facility] 3 16:49:38 Closed injury of head 539882237585 Active 2022 BALTA Dalton [address], [address], [place], [address] , [place] [facility] [place] [facility] 3 14:28:28 Chronic sinusitis 81736014 Active 2022 Rekha Herman RN [facility], [place] [facility] [place] [facility] 3 16:53:28 Chronic sinusitis 55827508 Active 2022 Norris Winkler MD [address], [address], [place], [address] , [place] [facility] [place] [facility] 3 17:02:42 Chronic maxillary sinusitis 60363408 Active 2023 Norris Winkler MD [address], [address], [place], [address] , [place] [facility] [place] [facility] 4 17:07:07 Chronic ethmoidal sinusitis 29332694 Active 2023 Norris Winkler MD [address], [address], [place], [address] , [place] [facility] [place] [facility] 4 17:07:19 Chronic frontal sinusitis 04032326 Active 2023 Norris Winkler MD [address] [facility], [address], [place], [address] , [facility] 4 17:07:37 Chronic sphenoidal sinusitis 45623651 Active 2023 Norris Winkler MD [address] [facility], [address], [place], [address] , [facility] 4 17:07:55 Sinusitis co-occurre nt with nasal polyps 0235647320758 2 Active 2023 Norris Winkler MD [address] [facility] [facility] [address], [address], [place], [address] , [facility] 17:04:30 Problem Notes None recorded. Procedures Surgical History Date Name Laterality Status Provider Name and Address Organization Details Recorded Time 12/08/19 24 ENDOSCOPY, NASAL/SINUS, W/ MAXILLARY ANTROSTOMY & TISSUE REMOVAL (SURG) completed Rekha Herman RN [facility] 12/10/2023 11:38:49 12/03/19 22 Date of Last Colonoscopy completed Not Available [facility] 11/12/2022 20:38:39 05/27/20 21 ENDOSCOPY, NASAL/SINUS, WITH FRONTAL SINUS EXPLORATION (SURG) completed Not Available [facility] 11/12/2022 20:40:04 09/14/19 18 dilation of esophagus completed Rekha Herman RN [facility] [employer] [facility] 09/01/2023 16:45:55 Imaging Results Imaging Date Name Status LastModified by Organ [facility] Details LastModified Time 06/30/2023 CT, head, w/o contrast completed [facility] [address] [place] [address] Dr, [place], [address], 06/30/2023 15:48:25 08/25/2023 MAMMO, screening, digital, bilateral completed [address], [place], [address], 10/09/2023 11:44:01 10/15/2023 CT, maxillofacial, w/o contrast completed [address] (Imaging) [address] [facility], [place], [address], 10/28/2023 12:51:56 10/23/2023 CT, sinuses, w/o contrast completed [facility] [address] [place] [address] , [place], [address], 10/26/2023 08:46:13 Procedure Notes None recorded. Medical Equipment None Reported. Allergies No known drug allergies Medications Name Sig Start Date Stop Date Status Note LastModified by Organization Details LastModified Time promethazin e-DM 6.25 mg-15 mg/5 mL oral syrup TAKE 5 ML BY MOUTH AT BEDTIME NEEDED FOR COUGH. active Not Available Not Available No t Available ibuprofen 800 mg tablet 02/18 completed Not Available Not Available Not Available tolterodine ER 4 mg capsule,ext ended release 24 hr TAKE 1 CAPSULE BY MOUTH EVERY DAY active Not Available Not Available No t Available ondansetron HCl 4 mg tablet 02/18 completed Not Available Not Available Not Available prednisone 20 mg tablet TAKE 2 TABLETS BY MOUTH 1 TIME IN THE MORNING DIRECTED 03/21 completed Not Available Not Available Not Available spironolact one 100 mg tablet TAKE 1 TABLET BY MOUTH DAILY active Not Available Not Available No t Available terconazole 0.8 % vaginal cream APPLY SMALL AMOUNT VAGINALLY TO THE AFFECTED AREA EVERY NIGHT AT BEDTIME FOR 3 NIGHTS DIRECTED active Not Available Not Available No t Available acetaminoph en 300 mg-codeine 30 mg tablet TK 1 T PO HS 01/24 completed Not Available Not Available Not Available estradiol 0.05 mg/24 hr semiweekly transdermal patch APPLY 1 PATCH TOPICALLY TO THE SKIN 2 TIMES A WEEK DIRECTED active Not Available Not Available No t Available ciprofloxac in 500 mg tablet TAKE 1 TABLET BY MOUTH EVERY 12 HOURS 11/05 completed Not Available Not Available Not Available sulfamethox azole 800 mg-trimetho prim 160 mg tablet TAKE 1 TABLET BY MOUTH EVERY 12 HOURS 09/24 completed Not Available Not Available Not Available minoxidil 2.5 mg tablet TAKE ONE TABLET BY MOUTH DAILY active Not Available Not Available No t Available tramadol 50 mg tablet TK 1 T PO 2 TO 3 XD 01/24 completed Not Available Not Available Not Available oxycodone-a cetaminophe n 5 mg-325 mg tablet 02/18 completed Not Available Not Available Not Available alprazolam 0.25 mg tablet 02/18 completed Not Available Not Available Not Available famotidine 20 mg tablet Take 1 tablet twice a day by oral route. active Not Available Not Available No t Available benzonatate 100 mg capsule TAKE 1 TO 2 CAPSULES BY MOUTH THREE TIMES DAILY NEEDED FOR COUGH. MAXIMUM 6 CAPSULE IN 24 HOURS FOR DAYTIME COUGH active Not Available Not Available No t Available doxycycline monohydrate 100 mg capsule 02/18 completed Not Available Not Available Not Available hydrocodone 7.5 mg-acetamin ophen 325 mg tablet TAKE 1 TABLET BY MOUTH EVERY 4 HOURS NEEDED 12/16 completed Not Available Not Available Not Available cephalexin 500 mg capsule TAKE 1 CAPSULE BY MOUTH FOUR TIMES DAILY 06/24 completed Not Available Not Available Not Available fluoxetine 20 mg tablet 02/18 completed Not Available Not Available Not Available triamcinolo ne acetonide 0.1 % topical ointment APPLY EXTERNALL Y TO THE AFFECTED AREA TWICE DAILY NEEDED FOR ITCHING active Not Available Not Available No t Available progesteron e micronized 200 mg capsule TAKE 1 CAPSULE BY MOUTH EVERY DAY active Not Available Not Available No t Available fluoxetine 10 mg capsule TAKE 1 CAPSULE BY MOUTH EVERY DAY 04/25 completed Not Available Not Available Not Available sertraline 25 mg tablet TAKE 1 TABLET BY MOUTH EVERY DAY active Not Available Not Available No t Available hydrocortis one 2.5 % topical cream APPLY TO LEFT CHEEK TWICE DAILY DIRECTED active Not Available Not Available No t Available mometasone 0.1 % topical ointment APPLY TO THE AFFECTED AREA TWICE DAILY X 1-2 WEEKS DIRECTED active Not Available Not Available No t Available mupirocin 2 % topical ointment APPLY EXTERNALL Y TO THE BRIDGE OF THE NOSE THREE TIMES DAILY FOR 5 DAYS active Not Available Not Available No t Available alprazolam 2 mg tablet 02/18 completed Not Available Not Available Not Available methylpredn isolone 4 mg tablets in a dose pack FOLLOW PACKAGE DIRECTION S active Not Available Not Available No t Available hydrocodone 10 mg-chlorphe niramine 8 mg/5 mL oral susp extend.rel 12hr Take 5 mL every 12 hours by oral route. active Not Available Not Available No t Available albuterol sulfate HFA 90 mcg/actuati on aerosol inhaler INHALE 2 PUFFS BY MOUTH EVERY 4 TO 6 HOURS NEEDED DIRECTED FOR WHEEZING OR SHORTNESS OF BREATH active Not Available Not Available No t Available cefdinir 300 mg capsule TAKE 1 CAPSULE BY MOUTH EVERY 12 HOURS active Not Available Not Available No t Available fluoxetine 20 mg capsule 02/18 completed Not Available Not Available Not Available fluticasone propionate 50 mcg/actuati on nasal spray,suspe nsion SHAKE LIQUID AND USE 1 SPRAY IN EACH NOSTRIL TWICE DAILY DIRECTED 09/25 completed Not Available Not Available Not Available sertraline 50 mg tablet TAKE 1 TABLET BY MOUTH EVERY DAY active Not Available Not Available No t Available doxycycline hyclate 100 mg tablet 02/18 completed Not Available Not Available Not Available dicyclomine 10 mg capsule Take 1 capsule 3 times a day by oral route as needed. active Not Available Not Available No t Available progesteron e micronized 100 mg capsule TAKE 1 CAPSULE BY MOUTH EVERY DAY AT BEDTIME active Not Available Not Available No t Available amoxicillin 875 mg-potassiu m clavulanate 125 mg tablet Take 1 tablet every 12 hours by oral route. 03/21 completed Not Available Not Available Not Available escitalopra m 10 mg tablet 06/16 completed Not Available Not Available Not Available bupropion HCl XL 150 mg 24 hr tablet, extended release TAKE 1 TABLET BY MOUTH EVERY DAY 12/16 completed Not Available Not Available Not Available nitrofurant oin monohydrate /macrocryst als 100 mg capsule TAKE 1 CAPSULE BY MOUTH EVERY 12 HOURS WITH FOOD FOR 5 DAYS 04/25 completed Not Available Not Available Not Available Viibryd 10 mg tablet 06/21 completed Not Available Not Available Not Available Viibryd 20 mg tablet 06/21 completed Not Available Not Available Not Available Linzess 145 mcg capsule TAKE 1 CAPSULE BY MOUTH EVERY DAY active Not Available Not Available No t Available Afluria Quad (PF) 60 mcg (15 mcg x 4)/0.5 mL IM syringe ADM 0.5ML IM UTD 02/18 completed Not Available Not Available Not Available Afluria Qd 2018- (36 mos up)(PF)60 mcg (15 mcg x4)/0.5 mL IM syringe ADM 0.5ML IM UTD 01/24 completed Not Available Not Available Not Available Dupixent 300 mg/2 mL subcutaneou s pen injector Inject 300 mg every 2 weeks by subcutane ous route for 90 days. 2023 active Not Available Not Available Not Avai lable Lyllana 0.025 mg/24 hr transdermal patch APPLY 1 PATCH TOPICALLY TO THE SKIN 2 TIMES A WEEK active Not Available Not Available No t Available Vitals Date Recorded Body height Body temperature Body mass index (BMI) Body weight Respiratory rate Oxygen saturation Oxygen saturation in Arterial blood by Pulse oximetry Heart rate Systolic blood pressure Diastolic blood pressure Provider Name and Address Organization Details Last Updated DateTime 3 162.56 cm 97.8 [degF] 32 kg/m2 37282.9 8 g 16 /min 98 % 98 % 77 /min 110 mm[Hg] 72 mm[Hg] IGOR Alvarez [facility] [employer] [facility] 3 14:14:29 Date Recorded Body height Body temperature Body weight Heart rate Oxygen saturation Oxygen saturation in Arterial blood by Pulse oximetry Systolic blood pressure Diastolic blood pressure Provider Name and Address Organization Details Last Updated DateTime 3 162.56 cm 97.7 [degF] 89853.9 2 g 73 /min 98 % 98 % 118 mm[Hg] 78 mm[Hg] Aleshia Mcgill RN [facility] [employer] [facility] 3 16:13:16 Date Recorded Body height Body mass index (BMI) Body weight Body temperature Provider Name and Address Organization Details Last Updated DateTime 09/01/2023 162.56 cm 34.6 kg/m2 63476.94 g 97.6 [degF] Rekha Herman RN [facility] [employer] [facility] 09/01/2023 16:46:32 Date Recorded Body height Body mass index (BMI) Body weight Body temperature Provider Name and Address Organization Details Last Updated DateTime 11/05/2023 162.56 cm 34.6 kg/m2 14668.22 g 97.6 [degF] Rekha Herman RN [facility] [employer] [facility] 11/05/2023 16:44:02 Date Recorded Body height Body mass index (BMI) Body weight Body temperature Provider Name and Address Organization Details Last Updated DateTime 12/17/2023 162.56 cm 35.1 kg/m2 96339.56 g 97.7 [degF] Rekha Herman RN [place] [facility] [place] [employer] 12/17/2023 16:29:39 Social History Question Answer Notes LastModified by Organizat [employer] Details LastModified Time Tobacco Smoking Status Never Smoker Not Available [facility] 11/12/2022 20:38:30 What Is Your Level Of Caffeine Consumption? Occasional [id number] Information not available 11/12/2022 In The 14 Days Before Symptom Onset, Have You Had Close Contact With A Laboratory-confirm ed COVID-19 While That Case Was Ill? No [id number] Information not available 11/12/2022 In The 14 Days Before Symptom Onset, Have You Had Close Contact With A Person Who Is Under Investigation For COVID-19 While That Person Was Ill? No MIGRATION.[id number] Information not available 11/12/2022 What Type Of Diet Are You Following? REGULAR [id number] Information not available 11/12/2022 Which Illicit Or Recreational Drugs Have You Used? None [id number] Information not available 11/12/2022 Have There Been Any Changes To Your Family Or Social Situation? No [id number].[id number] Information not available 11/12/2022 Do You Use Insect Repellent Routinely? No MIGRATION.[id number] Information not available 11/12/2022 What Was The Date Of Your Most Recent Tobacco Screening? 04/25/2022 [id number].[id number] Information not available 11/12/2022 What Is Your Relationship Status? Information not available 06/23/2023 Do You Use Your Seat Belt Or Car Seat Routinely? Yes MIGRATION.[id number] Information not available 11/12/2022 Do You Have Smoke And Carbon Monoxide Detectors In Your Home? Yes MIGRATION.[id number] 8015 Information not available 11/12/2022 Do You Use Sunscreen Routinely? Yes MIGRATION.[id number] 9445 Information not available 11/12/2022 Have You Recently Traveled Abroad? No MIGRATION.159380 0086 Information not available 11/12/2022 Do You Have Any Dietary Restrictions? No MIGRATION.603572 3454 Information not available 11/12/2022 Sex: Unknown Functional Status Question Answer Note LastModified by Organizat ion Details LastModified Time Do you use any illicit or recreational drugs? No MIGRATION.[id number] 026 Information not available 11/12/2022 Do you or have you ever used any other forms of tobacco or nicotine? No MIGRATION.1551945 026 Information not available 11/12/2022 What is your level of alcohol consumption? Occasional [id number].[id number] 026 Information not available 11/12/2022 What is your exercise level? Occasional [id number].[id number] 026 Information not available 11/12/2022 Mental Status None recorded. Family History Relationship Description Onset Age of this Age Resolved Age Notes LastModified by Organization Details LastModified Time Father No current problems or disability [id number] Not available 11/12/2022 20:38:40 Mother Malignant tumor of colon [id number] Not available 11/12/2022 20:38:40 Notes:NO ENT Medical History Condition Response MRSA N SLEEP APNEA N ALLERGIES/HAYFEVER N LUNG DISEASE/DISORDER N INSOMNIA N COPD N RADIATION / CHEMOTHERAPY N HIGH CHOLESTEROL / HYPERLIPIDEMIA N HYPERTHYROIDISM N BLOOD DISEASES N EAR OR HEARING PROBLEMS N HYPOTHYROIDISM N DEPRESSION (INCLUDING POST ) N HAVE YOU BEEN HOSPITALIZED OR SEEN IN [facility] IN THE PAST YEAR ? N STROKE/TIA N ULCERS N OBESITY N ANEURYSM N HISTORY WITH COMPLICATIONS WITH ANESTHES IA ? N USE OF BLOOD THINNERS N NO SIGNIFICANT PAST MEDICAL HISTORY N DIABETES, TYPE N PARATHYROID DISEASE N ENT N SEASONAL ALLERGIES N HEARTBURN / REFLUX N HEPATITIS / LIVER DISEASE N SLEEP DISORDER N SEIZURES/EPILEPSY N HEADACHES/MIGRAINES N CHF N PACEMAKER N DIZZINESS N HEART DISEASE/HEART PROBLEMS N AIDS/HIV N FRACTURES N HYPERTENSION N CANCER: SPECIFY N TOURETTE'S N BLOOD TRANSFUSION N ANEMIA/BLOOD DISORDER N ANESTHESIA COMPLICATIONS N CHRONIC EAR INFECTIONS N TUBERCULOSIS N Gynecological History Statement/Question Response Date of Last Colonoscopy 12/02/2021 Obstetrics History GPAL:G 0 P 0 0 0 0 Immunizations Vaccine Type Date Status Note Provider Nam e and Address Organization Details Recorded Time Influenza, split virus, quadrivalent, preservative 9 completed Not Available [facility] 11/12/2022 20:39:59 Past Encounters Encounter ID Performer Location Encounter Start Date Encounter Closed Date Diagnosis/Indication Diagnosis SNOMED-CT Code Diagnosis ICD10 Code Diagnosis Note [id number] [facility] [place] [address] [place] [address] 03/21/2021 00:00:00 03/21/2021 12:01:55 [id number] Norris Winkler MD [facility] [place] [address] [place], [place] [address] 05/07/2021 00:00:00 05/07/2021 14:42:36 [id number] Norris Winkler MD [facility] [place] [address] [place], [place] [address] 06/06/2021 00:00:00 06/06/2021 15:30:11 [id number] BALTA Dalton [facility] [place] [address] [place], [place] [address] 09/25/2021 00:00:00 10/14/2021 13:12:10 [id number] BALTA Dalton [facility] Internal [place] [address] [place] [address] 12/16/2021 00:00:00 01/11/2022 13:47:44 [id number] Zbigniew Clark MD [facility] Internal Med [place] [address] [place], [place] [address] 04/25/2022 00:00:00 05/12/2022 00:19:30 [id number] BALTA Dalton [facility] [place] Med [place] [address] [place], [place] [address] 01/02/2023 14:02:45 01/02/2023 15:32:49 Adult health examination 802796910 Z00.00 annual wellness completed. labs are UTD with her hormone specialist . Generalize d anxiety disorder 91131939 F41.1 taper down off sertraline ....per patient request. Long-term drug therapy 838289783 Z79.426 [id number] BALTA Dalton [facility] Internal [place] [address] [place] [address] 06/24/2023 16:03:09 06/24/2023 16:51:35 Pain of multiple joints 40544258 M25.50 check RF, CRP, ESR, uric acid, CCP ab, and Alondra panel [id number] MD ANETA [facility] [place] [address] [place] [address] 09/01/2023 16:37:32 09/01/2023 17:00:04 Chronic sinusitis 85427313 J32.9 [id number] [facility] [place] [address] [place] [address] 11/05/2023 15:47:58 11/05/2023 17:28:13 Chronic maxillary sinusitis 59270850 J32.0 Chronic et hmoidal sinusitis 98414974 J32.2 Chronic fr ontal sinusitis 67631044 J32.1 Chronic sp henoidal sinusitis 36307511 J32.3 [id number] [facility] [facility] [place] [address] [place] [address] 12/17/2023 16:06:12 12/18/2023 11:08:33 Chronic sinusitis 96555016 J32.9 Sinusitis co-occurrent with nasal polyps [id number] 9102 J33.9 Health Concerns Section Related Observation LastModified by Organization Detai ls LastModified Time None Recorded Concern Status LastModified by Organization Details LastModified Time None Recorded Advance Directives Directive None Recorded Payers Encounter Date Sequence Insurance Name Policy Number Policy Harmon Covered Member ID Harmon Member ID Guarantor Name 01/02/2023 1 [facility] [id number] Damien Monae [id number] Damien Monae 06/24/2023 1 [facility] [id number] Damien Monae [id number] Damien Monae 09/01/2023 1 [facility] [id number] Damien Monae [id number] Damien Monae 11/05/2023 1 [facility] [id number] Damien Monae [id number] Damien Monae 12/17/2023 1 [facility] [id number] Damien Monae [id number] Damien Monae Notes Date Note Type Note Provider Name and Address Organization Details Recorded Time 01/02/2023 text/html Anxiety/Depressi onRepo rted bypatient.Severity:den ies suicidal ideations; able to maintain relationships; does not interfere with activities of daily living Duration:symptoms lasting over 2 weeks Onset/Timing:still present; stable Context:no major life stressors Modifying Factors:rx Associated Symptoms:denies homicidal ideations; no significant weight gain; no significant weight loss; no visual/auditory hallucinations; no delusions; no shortness of breath;emotional lability;anxietyNotes: improved Wellness BALTA Dalton [address] [address], [place], [address], [employer] 01/08/2023 17:35:53 06/24/2023 text/html Musculoskeletal SymptomsReported bypatient.HPIno previous injuries; moves all extremeties well Shoulders:no injury or trauma Knees:no prior trouble Ankles:no prior injury Back:no back injury Legs:no leg symptoms; no pain left leg; no pain right legNotes:multiple joint pains/soreness. no injury. some joint swelling at times she thinks. pt here for c/o joint pain BALTA Dalton [address], [place], [address], [employer] 07/14/2023 23:23:09 09/01/2023 text/html this patient had sinus surgery 2 years ago and was doing well until about 6 months ago. She has been using [id number] medications since then and has facial pressure drainage and believes that she has a sinus infection. She has been on no antibiotics in the past 6 months Norris Winkler MD [address], [place], [address], [employer] 09/01/2023 17:03:59 11/05/2023 text/html Pansinusitis on CT. She had surgery 3 years ago Norris Winkler MD [address], [address], [place], [address], [employer] 11/05/2023 17:08:18 12/17/2023 text/html She has had sinu s surgery and reports of facial pain headaches and she did have polyps on the 2nd procedure. Norris Winkler MD [address] [facility] [address], [place], [address], [facility] 01/13/2024 17:04:37 OBGyn Episode No OBEpisode recorded.
--- OUTSIDE RECORDS SUMMARY | 2025-01-23 15:17 | XMS_ITS | Data Portability ---
Author Organization [place] - [facility] , [facility] Address [address] [place] [address] Assessment No assessment recorded. Plan of Treatment Reminders Order Date Submit Date Provider Last Modified By Organization Details Last Modified Time Details Appointments None recorded. Lab None recorded. Referral None recorded. Procedures None recorded. Surgeries None recorded. Imaging None recorded. Medication Orders ondansetron 4 mg disintegrat ing tablet 2024 025 [id number], [address], [place], [id number], 12:38:40 Patient TargetsNo targets recorded. Patient Instructions Encounter Date Encounter Id Patient Instructions Last Modified By Organization Details Last Modified Time 10/11/2024 [id number] gastroenteritis: care instructions [email or web address] Not available 10/11/2024 12:38:31 Reason for Referral None Reported. Medical Equipment None Reported. Allergies No known drug allergies Medications Name Sig Start Date Stop Date Status Note LastModified by Organization Details LastModified Time promethaz ine-DM 6.25 mg-15 mg/5 mL oral syrup active [NOT TAKING] Not Available Not Available Not Available prednison e 20 mg tablet 20 mg 06/13 completed Not Available Not Available Not Available methylpre dnisolone 4 mg tablet 4 mg 01/26 completed Not Available Not Available Not Available cephalexi n 500 mg capsule 06/15 completed Not Available Not Available Not Available mupirocin 2 % topical ointment 06/15 completed Not Available Not Available Not Available ondansetr on 4 mg disintegr ating tablet Place 1 tablet every 12 hours by translin gual route as needed for 3 days, for nausea/v omiting. 2024 active Not Available Not Available Not Avai lable Mucinex 600 mg tablet, extended release 600 mg 06/13 completed Not Available Not Available Not Available sertralin e active Not Available Not Available Not Available estradiol active [NOT TAKING] Not Available Not Available Not Available Vicks DayQuil Cough active [NOT TAKING] Not Available Not Available Not Available UNLISTED MEDICATIO N [Migrate d medicati on name:] Doxycycl ine Monohydr ate 100 mg capsule: :100 mg 01/24 completed Not Available Not Available Not Available UNLISTED MEDICATIO N [Migrate d medicati on name:] Medrol Dosepak 4 mg tablet:: 4 mg 01/26 completed Not Available Not Available Not Available UNLISTED MEDICATIO N [Migrate d medicati on name:] Augmenti n 875 mg-125 mg tablet:: 875 mg-125 mg 01/24 completed Not Available Not Available Not Available UNLISTED MEDICATIO N [Migrate d medicati on name:] muc:: 08/28 completed Not Available Not Available Not Available UNLISTED MEDICATIO N [Migrate d medicati on name:] DayQuil: : 01/24 completed Not Available Not Available Not Available UNLISTED MEDICATIO N [Migrate d medicati on name:] Albutero l 90 mcg/inh aerosol: :90 mcg/inh 06/13 completed Not Available Not Available Not Available UNLISTED MEDICATIO N [Migrate d medicati on name:] Benzonat ate 100 mg capsule: : active [NOT TAKING] Not Available Not Available Not Available UNLISTED MEDICATIO N [Migrate d medicati on name:] Fluticas one Nasal 50 mcg/inh spray::5 0 mcg/inh 06/13 completed Not Available Not Available Not Available UNLISTED MEDICATIO N [Migrate d medicati on name:] testoste namrata implant: : active Not Available Not Available No t Available UNLISTED MEDICATIO N [Migrate d medicati on name:] Ozempic subcutan eous:: active Not Available Not Available No t Available progester one compoundi ng kit active ADDED BY PATIENT: 200 mg nightly Not Available Not Available Not Available Vitals None Recorded Social History None recorded. Functional Status None recorded. Mental Status None recorded. Family History Nothing Reported. Medical History No medical history recorded. Gynecological HistoryNo gynecological history recorded. Obstetrics History GPAL:G 0 P 0 0 0 0 Past Encounters Encounter ID Performer Location Encounter Start Date Encounter Closed Date Diagnosis/Indication Diagnosis SNOMED-CT Code Diagnosis ICD10 Code Diagnosis Note [id number] SANDRINE Richardson [facility] [address] [place] [address] 10/11/2024 12:32:44 10/11/2024 18:37:23 Acute gastroenteritis [id number] K52.9 Health Concerns Section Related Observation LastModified by Organization Detai ls LastModified Time None Recorded Concern Status LastModified by Organization Details LastModified Time None Recorded Advance Directives Directive None Recorded Payers Insurance Date Sequence Insurance Name Policy Number Policy Harmon Covered Member ID Harmon Member ID Guarantor Name 10/11/2024 3 *SELF PAY* [id number] Sameera Navaime [id number] Sameera Navaime 10/11/2024 2 [facility] [id number] Sameera Adis [id number] Sameera Adis 10/11/2024 [employer] [id number] Sameera Adis [id number] Sameera Adis 11/02/2024 1 [id number] Sameera Adis [id number] Sameera Adis 10/11/2024 1 *SELF PAY* Sa sergio Arceo Notes Date Note Type Note Provider Name and Address Organization Details Recorded Time 10/11/2024 text/html Call connected, patient greeted. Patient name, , telephone number and pharmacy, and location verified verbally with the patient. Telemedicine limitations reviewed, answered all questions the patient had about the telehealth interaction, and verbal consent obtained to treat. Clinician attests they are physically located in the following state at the time of visit: [place]. The patient also consents to the use of [employer] scribe technology. CC: Vomiting and diarrhea HPI: The patient reports experiencing vomiting and diarrhea since around 2:30 AM today. They have been unable to retain any food or liquids since the onset of symptoms. The patient describes these symptoms as persistent and severe enough to significantly impede oral fluid intake, resulting in dehydration. They report a headache and mild body aches but do not have a fever. There is a sensation of tightness in the chest, likely attributed to the physical act of vomiting. The patient denies any abdominal pain upon palpation and reports no pain upon percussion over the kidneys. They also note a lack of significant urination due to the inability to take in fluids. The patient denies the possibility of , having been without a menstrual period for 14 months, and their has a vasectomy, adding to the certainty against . They haven t mentioned any specific suspected exposures to symptomatic triggers or known illnesses in close contacts. No past occurrences of similar conditions were noted. They deny experiencing any fever at the time and have not undergone any recent COVID tests or been exposed to the virus. They also specifically deny the use of control at present. Dolores Garcia, NURSING EXECUTIVE [address] [facility] [address], [place], [address], [facility] 10/11/2024 12:39:10 OBGyn Episode No OBEpisode recorded.
--- OUTSIDE RECORDS SUMMARY | 2025-01-23 15:17 | XMS_ITS | Data Portability ---
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 Plan of Treatment Reminders Order Date Submit Date Provider Last Modified By Organization Details Last Modified Time Details Appointments ANY 15 2024 09:00A M BALTA Dalton Not available Not available Not available Lab TSH + free T4, serum 2024 025 [email or web address] [facility], [address], [place], [address], 12/14/2024 09:15:05 lipid panel, serum 2024 025 [email or web address] [facility], [address], [place], [address], 12/14/2024 09:15:05 CMP, serum or plasma 2024 025 [email or web address] [facility], [address], [place], [address], 12/14/2024 09:15:05 CBC w/ auto diff 2024 025 [email or web address] [facility], [address], [place], [address], 12/14/2024 09:15:05 vitamin B12 + folate, serum or blood 2024 025 [email or web address] [facility], [address], [place], [address], 12/14/2024 09:15:05 insulin, serum 2024 025 [email or web address] [facility], [address], [place], [address], 12/14/2024 09:15:05 HbA1c (hemoglob in A1c), blood 2024 025 [email or web address] [facility], [address], [place], [address], 12/14/2024 09:15:05 unlisted lab - covid-19 antibodie s IgM 2023 024 TORO [facility], [address], [place], [address], 08/08/2024 14:36:36 carlota lazar virus Ab panel, serum 2023 024 [email or web address], [address], [place], [address], 08/10/2024 10:18:36 iron + TIBC + ferritin, serum 2023 024 [place] [facility], [address], [place], [address], 08/08/2024 14:36:38 CMP, serum or plasma 2023 024 TORO [facility], [address], [place], [address], 08/08/2024 14:36:34 CBC w/ auto diff 2023 024 [email or web address], [address], [place], [address], 08/10/2024 10:18:36 TSH + free T4, serum 2023 024 [place] [facility], [address], [place], [address], 03/15/2024 16:36:30 T3, free, serum or plasma 2023 024 TOROGIRISH [facility], [address], [place], [address], 03/15/2024 16:36:34 thyropero xidase Ab, serum 2023 024 T[facility]OG[facility] Mims, [address], [place], [address], 03/15/2024 16:36:33 CMP, serum or plasma 2023 024 TOROGIRISH Mims, [address], [place], [address], 03/15/2024 16:36:31 CBC w/ auto diff 2023 024 TOROGIRISH Mims, [address], [place], [address], 03/15/2024 16:36:33 vitamin B12 + folate, serum or blood 2023 024 TORO Shen, [address], [place], [address], 03/15/2024 16:36:31 lipid panel, serum 2023 024 TOROGIR[facility] Mims, [address], [place], [address], 03/15/2024 16:36:29 HbA1c (hemoglob in A1c), blood 2023 024 T[facility]OGIR[facility] Mims, [address], [place], [address], 03/15/2024 16:36:32 Referral None recorded. Procedures None recorded. Surgeries None recorded. Imaging None recorded. Medication Orders bupropion HCl XL 150 mg 24 hr tablet, extended release 2024 [facility] #[id number], [address] [facility] [address], [place], [place], [id number], 12/14/2024 09:15:13 Medrol (Ricardo) 4 mg tablets in a dose pack 2023 [facility] #[id number], [address] [address], [place], [place], [id number], 08/10/2024 08:19:43 cefdinir 300 mg capsule 2023 [facility] #[id number], [address] [address], [place], [place], [id number], 08/10/2024 08:19:45 Patient TargetsNo targets recorded. Patient Instructions Encounter Date Encounter Id Patient Instructions Last Modified By Organization Details Last Modified Time 02/17/2024 [id number] A healthy lifestyle: care instructions Not available 02/23/2024 18:12:29 12/14/2024 [id number] A healthy lifestyle: care instructions Not available 12/14/2024 09:15:05 Reason for Referral None Reported. Results Created Date Observation Date Name Description Value Unit Range Abnormal Flag Note LastModifiedBy Organization Detail LastModifiedTime 03/14/2003/15/2024 LIPID PANEL W/ CHOL/ HDL RATIO cholesterol, total 204 mg/dL 100-19 9 above high normal Not Available [facility] ([facility]) [address] [facility], [place], [address], 03/15/2024 16:36:29 03/14/20 24 03/15/2024 LIPID PANEL W/ CHOL/ HDL RATIO triglyceride s 83 mg/dL 0-149 Not Available [facility] ([facility]) [address] [facility], [place], [address], 03/15/2024 16:36:29 03/14/20 24 03/15/2024 LIPID PANEL W/ CHOL/ HDL RATIO HDL cholesterol 59 mg/dL >39 Not Available [facility] ([facility]) [address] [place], [address], 03/15/2024 16:36:29 03/14/20 24 03/15/2024 LIPID PANEL W/ CHOL/ HDL RATIO VLDL cholesterol samuel 15 mg/dL 5-40 Not Available [facility] ([facility]) [address] [place], [address], 03/15/2024 16:36:29 03/14/20 24 03/15/2024 LIPID PANEL W/ CHOL/ HDL RATIO LDL chol calc ([facility]) 130 mg/dL 0-99 above high normal Not Available [facility] ([facility]) [address] [place], [address], 03/15/2024 16:36:29 03/14/20 24 03/15/2024 LIPID PANEL W/ CHOL/ HDL RATIO T. chol/HDL ratio 3.5 ratio 0.0-4. 4 T. Chol/ HDL Ratio Men Women 1/2 Avg.R isk 3.4 3.3 Avg.R isk 5.0 4.4 2X Avg.R isk 9.6 7.1 3X Avg.R isk 23.4 11.0 Not Available [facility] ([facility]) [address] [place], [address], 03/15/2024 16:36:29 03/14/20 24 03/15/2024 TSH+F REE T4 TSH 1.170 uIU/m L 0.450- 4.500 Not Available [facility] ([facility]) [address] [place], [address], 03/15/2024 16:36:30 03/14/20 24 03/15/2024 TSH+F REE T4 T4,free(dire ct) 0.93 NG/dL 0.82-1 .77 Not Available [facility] ([facility]) [address] [facility] [place], [address], 03/15/2024 16:36:30 03/14/20 24 03/15/2024 COMP. METAB OLIC PANEL (14) glucose 91 mg/dL 70-99 Not Available [facility] ([facility]) [address] [facility] [place], [address], 03/15/2024 16:36:31 03/14/20 24 03/15/2024 COMP. METAB OLIC PANEL (14) BUN 19 mg/dL 6-24 Not Available [facility] ([facility]) [address] [facility] [place], [address], 03/15/2024 16:36:31 03/14/20 24 03/15/2024 COMP. METAB OLIC PANEL (14) creatinine 1.28 mg/dL 0.57-1 .00 above high normal Not Available [facility] ([facility]) [address] [facility] [place], [address], 03/15/2024 16:36:31 03/14/20 24 03/15/2024 COMP. METAB OLIC PANEL (14) eGFR 53 mL/mi n/1.7 3 >59 below low normal Not Available [facility] ([facility]) [address] [facility] [place], [address], 03/15/2024 16:36:31 03/14/20 24 03/15/2024 COMP. METAB OLIC PANEL (14) BUN/creatini ne ratio 15 9-23 Not Available [facility] ([facility]) [address] [facility] [place], [address], 03/15/2024 16:36:31 03/14/20 24 03/15/2024 COMP. METAB OLIC PANEL (14) sodium 140 mmol/ L 134-14 4 Not Available [facility] ([facility]) [address] [facility], [place], [address], 03/15/2024 16:36:31 03/14/20 24 03/15/2024 COMP. METAB OLIC PANEL (14) potassium 4.7 mmol/ L 3.5-5. 2 Not Available [facility] ([facility]) [address] [place], [address], 03/15/2024 16:36:31 03/14/20 24 03/15/2024 COMP. METAB OLIC PANEL (14) chloride 103 mmol/ L 96-106 Not Available [facility] ([facility]) [address] [place], [address], 03/15/2024 16:36:31 03/14/20 24 03/15/2024 COMP. METAB OLIC PANEL (14) carbon dioxide, total 23 mmol/ L 20-29 Not Available [facility] ([facility]) [address] [place], [address], 03/15/2024 16:36:31 03/14/20 24 03/15/2024 COMP. METAB OLIC PANEL (14) calcium 9.6 mg/dL 8.7-10 .2 Not Available [facility] ([facility]) [address] [place], [address], 03/15/2024 16:36:31 03/14/20 24 03/15/2024 COMP. METAB OLIC PANEL (14) protein, total 7.2 g/dL 6.0-8. 5 Not Available [facility] ([facility]) [address] [place], [address], 03/15/2024 16:36:31 03/14/20 24 03/15/2024 COMP. METAB OLIC PANEL (14) albumin 4.3 g/dL 3.9-4. 9 Not Available [facility] ([facility]) [address] [place], [address], 03/15/2024 16:36:31 03/14/20 24 03/15/2024 COMP. METAB OLIC PANEL (14) globulin, total 2.9 g/dL 1.5-4. 5 Not Available [facility] ([facility]) [address] [facility] [place], [address], 03/15/2024 16:36:31 03/14/20 24 03/15/2024 COMP. METAB OLIC PANEL (14) bilirubin, total 0.4 mg/dL 0.0-1. 2 Not Available [facility] ([facility]) [address] [facility] [place], [address], 03/15/2024 16:36:31 03/14/20 24 03/15/2024 COMP. METAB OLIC PANEL (14) alkaline phosphatase 87 IU/L 44-121 Not Available [facility] ([facility]) [address] [facility] [place], [address], 03/15/2024 16:36:31 03/14/20 24 03/15/2024 COMP. METAB OLIC PANEL (14) AST (SGOT) 20 IU/L 0-40 Not Available [facility] ([facility]) [address] [facility] [place], [address], 03/15/2024 16:36:31 03/14/20 24 03/15/2024 COMP. METAB OLIC PANEL (14) ALT (SGPT) 22 IU/L 0-32 Not Available [facility] ([facility]) [address] [facility] [place], [address], 03/15/2024 16:36:31 03/14/20 24 03/15/2024 VITAM IN B12 AND FOLAT E vitamin B12 1321 pg/mL 232-12 45 above high normal Not Available [facility] ([facility]) [address] [facility] [place], [address], 03/15/2024 16:36:31 03/14/20 24 03/15/2024 VITAM IN B12 AND FOLAT E folate (folic acid), serum 5.0 NG/mL >3.0 A serum folat e ivett ntrat ion of less than 3.1 ng/mL is consi dered to repre sent clini samuel defic iency . Not Available [facility] ([facility]) [address] [facility], [place], [address], 03/15/2024 16:36:31 03/14/20 24 03/15/2024 HEMOG LOBIN A1C hemoglobin A1C 5.7 % 4.8-5. 6 above high normal Predi abete s: 5.7 - 6.4 Diabe naty: >6.4 Glyce maria fernanda contr ol for adult s with diabe naty: <7.0 Not Available [facility] ([facility]) [address] [facility], [place], [address], 03/15/2024 16:36:32 03/14/20 24 03/15/2024 CBC WITH DIFFE RENTI AL/PL ATELE T WBC 9.1 x10e3 /uL 3.4-10 .8 Not Available [facility] ([facility]) [address] [facility], [place], [address], 03/15/2024 16:36:33 03/14/20 24 03/15/2024 CBC WITH DIFFE RENTI AL/PL ATELE T RBC 4.85 x10e6 /uL 3.77-5 .28 Not Available [facility] ([facility]) [address] [facility], [place], [address], 03/15/2024 16:36:33 03/14/20 24 03/15/2024 CBC WITH DIFFE RENTI AL/PL ATELE T hemoglobin 14.4 g/dL 11.1-1 5.9 Not Available [facility] ([facility]) [address] [place], [address], 03/15/2024 16:36:33 03/14/20 24 03/15/2024 CBC WITH DIFFE RENTI AL/PL ATELE T hematocrit 42.3 % 34.0-4 6.6 Not Available [facility] ([facility]) [address] [facility], [place], [address], 03/15/2024 16:36:33 03/14/20 24 03/15/2024 CBC WITH DIFFE RENTI AL/PL ATELE T MCV 87 fL 79-97 Not Available [facility] ([facility]) [address] [facility], [place], [address], 03/15/2024 16:36:33 03/14/20 24 03/15/2024 CBC WITH DIFFE RENTI AL/PL ATELE T MCH 29.7 pg 26.6-3 3.0 Not Available [facility] ([facility]) [address] [facility], [place], [address], 03/15/2024 16:36:33 03/14/20 24 03/15/2024 CBC WITH DIFFE RENTI AL/PL ATELE T MCHC 34.0 g/dL 31.5-3 5.7 Not Available [facility] ([facility]) [address] [facility], [place], [address], 03/15/2024 16:36:33 03/14/20 24 03/15/2024 CBC WITH DIFFE RENTI AL/PL ATELE T RDW 12.3 % 11.7-1 5.4 Not Available [facility] ([facility]) [address] [facility], [place], [address], 03/15/2024 16:36:33 03/14/20 24 03/15/2024 CBC WITH DIFFE RENTI AL/PL ATELE T platelets 249 x10e3 /uL 150-45 0 Not Available [facility] ([facility]) [address] [place], [address], 03/15/2024 16:36:33 03/14/20 24 03/15/2024 CBC WITH DIFFE RENTI AL/PL ATELE T neutrophils 61 % notest ab. Not Available [facility] ([facility]) [address] [facility], [place], [address], 03/15/2024 16:36:33 03/14/20 24 03/15/2024 CBC WITH DIFFE RENTI AL/PL ATELE T lymphs 23 % notest ab. Not Available [facility] ([facility]) [address] [facility], [place], [address], 03/15/2024 16:36:33 03/14/20 24 03/15/2024 CBC WITH DIFFE RENTI AL/PL ATELE T monocytes 7 % notest ab. Not Available [facility] ([facility]) [address] [facility], [place], [address], 03/15/2024 16:36:33 03/14/20 24 03/15/2024 CBC WITH DIFFE RENTI AL/PL ATELE T eos 8 % notest ab. Not Available [facility] ([facility]) [address] [facility], [place], [address], 03/15/2024 16:36:33 03/14/20 24 03/15/2024 CBC WITH DIFFE RENTI AL/PL ATELE T basos 1 % notest ab. Not Available [facility] ([facility]) [address] [facility], [place], [address], 03/15/2024 16:36:33 03/14/20 24 03/15/2024 CBC WITH DIFFE RENTI AL/PL ATELE T neutrophils (absolute) 5.6 x10e3 /uL 1.4-7. 0 Not Available [facility] ([facility]) [address] [place], [address], 03/15/2024 16:36:33 03/14/20 24 03/15/2024 CBC WITH DIFFE RENTI AL/PL ATELE T lymphs (absolute) 2.1 x10e3 /uL 0.7-3. 1 Not Available [facility] ([facility]) [address] [facility], [place], [address], 03/15/2024 16:36:33 03/14/20 24 03/15/2024 CBC WITH DIFFE RENTI AL/PL ATELE T monocytes(ab solute) 0.6 x10e3 /uL 0.1-0. 9 Not Available [facility] ([facility]) [address] [facility], [place], [address], 03/15/2024 16:36:33 03/14/20 24 03/15/2024 CBC WITH DIFFE RENTI AL/PL ATELE T eos (absolute) 0.7 x10e3 /uL 0.0-0. 4 above high normal Not Available [facility] ([facility]) [address] [facility], [place], [address], 03/15/2024 16:36:33 03/14/20 24 03/15/2024 CBC WITH DIFFE RENTI AL/PL ATELE T baso (absolute) 0.1 x10e3 /uL 0.0-0. 2 Not Available [facility] ([facility]) [address] [facility], [place], [address], 03/15/2024 16:36:33 03/14/20 24 03/15/2024 CBC WITH DIFFE RENTI AL/PL ATELE T immature granulocytes 0 % notest ab. Not Available [facility] ([facility]) [address] [facility], [place], [address], 03/15/2024 16:36:33 03/14/20 24 03/15/2024 CBC WITH DIFFE RENTI AL/PL ATELE T immature grans (abs) 0.0 x10e3 /uL 0.0-0. 1 Not Available [facility] ([facility]) [address] [facility], [place], [address], 03/15/2024 16:36:33 03/14/20 24 03/15/2024 THYRO ID ANTIB ODIES thyroid peroxidase (tpo) Ab 17 IU/mL 0-34 Not Available [facility] ([facility]) [address] [place], [address], 03/15/2024 16:36:33 03/14/20 24 03/15/2024 THYRO ID ANTIB ODIES thyroglobuli n antibody <1.0 IU/mL 0.0-0. 9 Thyro globu ken Antib brian measu red by Justyn Lópezt er Metho dolog y It shoul d be noted that the prese nce of thyro globu ken antib odies may not be patho genic nor diagn ostic , espec ially at very low level s. The assay carlos actusanty er has found that four perce nt of indiv idual s witho ut evide nce of thyro id disea se or autoi mmuni ty will have posit jacki TgAb level s up to 4 IU/mL . Not Available [facility] ([facility]) [address] [facility], [place], [address], 03/15/2024 16:36:33 03/14/20 24 03/15/2024 TRIIO DOTHY SCARLET E (T3), FREE triiodothyro nine (T3), free 2.6 pg/mL 2.0-4. 4 Not Available [facility] ([facility]) [address] [place], [address], 03/15/2024 16:36:34 06/24/20 24 06/25/2024 BASIC METAB OLIC PANEL (8) glucose 92 mg/dL 70-99 Not Available [facility] ([facility]) [address] [place], [address], 06/25/2024 07:22:49 06/24/20 24 06/25/2024 BASIC METAB OLIC PANEL (8) BUN 12 mg/dL 6-24 Not Available [facility] ([facility]) [address] [place], [address], 06/25/2024 07:22:49 06/24/2006/25/2024 BASIC METAB OLIC PANEL (8) creatinine 1.15 mg/dL 0.57-1 .00 above high normal Not Available [facility] ([facility]) [address] [facility], [place], [address], 06/25/2024 07:22:49 06/24/20 24 06/25/2024 BASIC METAB OLIC PANEL (8) eGFR 60 mL/mi n/1.7 3 >59 Not Available [facility] ([facility]) [address] [facility], [place], [address], 06/25/2024 07:22:49 06/24/2006/25/2024 BASIC METAB OLIC PANEL (8) BUN/creatini ne ratio 10 9-23 Not Available [facility] ([facility]) [address] [facility], [place], [address], 06/25/2024 07:22:49 06/24/2006/25/2024 BASIC METAB OLIC PANEL (8) sodium 140 mmol/ L 134-14 4 Not Available [facility] ([facility]) [address] [place], [address], 06/25/2024 07:22:49 06/24/2006/25/2024 BASIC METAB OLIC PANEL (8) potassium 4.2 mmol/ L 3.5-5. 2 Not Available [facility] ([facility]) [address] [place], [address], 06/25/2024 07:22:49 06/24/2006/25/2024 BASIC METAB OLIC PANEL (8) chloride 103 mmol/ L 96-106 Not Available [facility] ([facility]) [address] [place], [address], 06/25/2024 07:22:49 06/24/20 24 06/25/2024 BASIC METAB OLIC PANEL (8) carbon dioxide, total 23 mmol/ L 20-29 Not Available [facility] ([facility]) [address] [place], [address], 06/25/2024 07:22:49 06/24/2006/25/2024 BASIC METAB OLIC PANEL (8) calcium 9.6 mg/dL 8.7-10 .2 Not Available [facility] ([facility]) [address] [place], [address], 06/25/2024 07:22:49 06/24/2006/25/2024 ENDY C DISEA SE COMPR EHENS JACKI deamidated gliadin abs, IgA 7 units 0-19 Negat jacki 0 - 19 Weak Posit jacki 20 - 30 Moder ate to Stron g Posit jacki >30 Not Available [facility] ([facility]) [address] [place], [address], 06/28/2024 14:36:56 06/24/2006/25/2024 ENDY C DISEA SE COMPR EHENS JACKI deamidated gliadin abs, IgG 2 units 0-19 Negat jacki 0 - 19 Weak Posit jacki 20 - 30 Moder ate to Stron g Posit jacki >30 Not Available [facility] ([facility]) [address] [facility], [place], [address], 06/28/2024 14:36:56 06/24/2006/25/2024 ENDY C DISEA SE COMPR EHENS JACKI T-transgluta minase (ttg) IgA <2 U/mL 0-3 Negat jacki 0 - 3 Weak Posit jacki 4 - 10 Posit jacki >10 Tissu e Trans gluta roxann e (tTG) has been ident ified as the endom ysial antig en. Studi es have demon str- ated that endom ysial IgA antib odies have over 99% speci ficit y for glute n sensi tive enter opath y. Not Available [facility] ([facility]) [address] [place], [address], 06/28/2024 14:36:56 06/24/20 24 06/25/2024 ENDY C DISEA SE COMPR EHENS JACKI T-transgluta minase (ttg) IgG 3 U/mL 0-5 Negat jacki 0 - 5 Weak Posit jacki 6 - 9 Posit jacki >9 Not Available [facility] ([facility]) [address] [facility], [place], [address], 06/28/2024 14:36:56 06/24/20 24 06/25/2024 ENDY C DISEA SE COMPR EHENS JACKI immunoglobul in A, qn, serum 331 mg/dL 87-352 Not Available [facility] ([facility]) [address] [facility], [place], [address], 06/28/2024 14:36:56 06/24/2006/28/2024 ENDY C DISEA SE COMPR EHENS JACKI endomysial antibody IgA NEGATI VE negati ve Not Available [facility] ([facility]) [address] [facility], [place], [address], 06/28/2024 14:36:56 07/20/2007/20/2024 EBV ANTIB BRIAN PROFI LE interpretati on: Commen t EBV Inter preta tion Chart Streeter: Antib brian Prese nt + Antib brian Absen t - Inter preta tion VCA-I gM VCA-I gG EBNA- IgG No previ ous infec tion/ - - - Susce ptibl e Prima ry infec tion (new + + - or recen t) Past Infec tion +or- + + See comme nt below * + - - *Resu lts indic ate infec tion with EBV at some time raymond kennedyo t predi ct the timin g of the infec tion since antib odies to EBNA usual ly devel op after prima ry infec tion or, alter nativ teresa, appro ximat teresa 5-10% of patie nts with EBV never devel op antib odies to [facility]. Not Available [address], [place], [address], 08/08/2024 14:36:33 07/20/20 24 07/21/2024 EBV ANTIB BRIAN PROFI LE ebv Ab vca, IgM <36.0 Negat jacki <36.0 Equiv ocal 36.0 - 43.9 Posit jacki >43.9 Not Available [address], [place], [address], 08/08/2024 14:36:33 07/20/20 24 07/21/2024 EBV ANTIB BRIAN PROFI LE ebv Ab vca, IgG 23.6 U/mL 0.0-17 .9 above high normal Negat jacki <18.0 Equiv ocal 18.0 - 21.9 Posit jacki >21.9 Not Available [address], [place], [address], 08/08/2024 14:36:33 07/20/20 24 07/21/2024 EBV ANTIB BRIAN PROFI LE ebv nuclear antigen Ab, IgG >600.0 U/mL 0.0-17 .9 above high normal Negat jacki <18.0 Equiv ocal 18.0 - 21.9 Posit jacki >21.9 Not Available [address], [place], [address], 08/08/2024 14:36:33 07/20/20 24 07/22/2024 CMP14 +EGFR glucose 83 mg/dL 70-99 Not Available [address], [place], [address], 08/08/2024 14:36:34 07/20/20 24 07/22/2024 CMP14 +EGFR BUN 14 mg/dL 6-24 Not Available [address], [place], [address], 08/08/2024 14:36:34 07/20/20 24 07/22/2024 CMP14 +EGFR creatinine 1.23 mg/dL 0.57-1 .00 above high normal Not Available [address], [place], [address], 08/08/2024 14:36:34 07/20/20 24 07/22/2024 CMP14 +EGFR eGFR 56 mL/mi n/1.7 3 >59 below low normal Not Available [address] [place], [place], [address], 08/08/2024 14:36:34 07/20/20 24 07/22/2024 CMP14 +EGFR BUN/creatini ne ratio 11 9-23 Not Available [address] [place], [place], [address], 08/08/2024 14:36:34 07/20/20 24 07/22/2024 CMP14 +EGFR sodium 139 mmol/ L 134-14 4 Not Available [address] [place], [place], [address], 08/08/2024 14:36:34 07/20/20 24 07/22/2024 CMP14 +EGFR potassium 4.3 mmol/ L 3.5-5. 2 Not Available [address] [place], [place], [address], 08/08/2024 14:36:34 07/20/20 24 07/22/2024 CMP14 +EGFR chloride 101 mmol/ L 96-106 Not Available [address] [place], [place], [address], 08/08/2024 14:36:34 07/20/20 24 07/22/2024 CMP14 +EGFR carbon dioxide, total 23 mmol/ L 20-29 Not Available [address] [place], [place], [address], 08/08/2024 14:36:34 07/20/20 24 07/22/2024 CMP14 +EGFR calcium 9.7 mg/dL 8.7-10 .2 Not Available [address], [place], [address], 08/08/2024 14:36:34 07/20/20 24 07/22/2024 CMP14 +EGFR protein, total 7.3 g/dL 6.0-8. 5 Not Available [address], [place], [address], 08/08/2024 14:36:34 07/20/20 24 07/22/2024 CMP14 +EGFR albumin 4.6 g/dL 3.9-4. 9 Not Available [address], [place], [address], 08/08/2024 14:36:34 07/20/20 24 07/22/2024 CMP14 +EGFR globulin, total 2.7 g/dL 1.5-4. 5 Not Available [address], [place], [address], 08/08/2024 14:36:34 07/20/20 24 07/22/2024 CMP14 +EGFR bilirubin, total 0.2 mg/dL 0.0-1. 2 Not Available [address], [place], [address], 08/08/2024 14:36:34 07/20/20 24 07/22/2024 CMP14 +EGFR alkaline phosphatase 82 IU/L 44-121 Not Available [address], [place], [address], 08/08/2024 14:36:34 07/20/20 24 07/22/2024 CMP14 +EGFR AST (SGOT) 22 IU/L 0-40 Not Available [address], [place], [address], 08/08/2024 14:36:34 07/20/20 24 07/22/2024 CMP14 +EGFR ALT (SGPT) 19 IU/L 0-32 Not Available [address], [place], [address], 08/08/2024 14:36:34 07/20/20 24 08/08/2024 COVID -19 ANTIB ODIES IGM result NEGATI VE Not Available [address] [place], [place], [address], 08/08/2024 14:36:35 07/20/20 24 08/08/2024 COVID -19 ANTIB ODIES IGM value 0.15 coi <0.8: Negat jacki 0.8-< 1.0: Indet ermin ate >=1.0 : Posit jacki Not Available [address] [place], [place], [address], 08/08/2024 14:36:35 07/20/20 24 08/08/2024 COVID -19 ANTIB ODIES IGM methodology COMMEN T Chemi lumin escen ce Not Available [address] [place], [place], [address], 08/08/2024 14:36:35 07/20/20 24 08/08/2024 COVID -19 ANTIB ODIES IGM comment NOTES Negat jacki resul ts to antib odies again st SARS- CoV-2 are gener ally indic ative of non-e xposu re to virus and lack of longe vity of antib brian respo nse. Not Available [address] [place], [place], [address], 08/08/2024 14:36:35 07/20/20 24 08/08/2024 COVID -19 ANTIB ODIES IGM references NOTES Praveen Sy, Sae Bell., Dashawn S., Diana Cutler, Michelle Marroquin, Kristin Tamez., et. al. (2019 ). Profi ling early humor al respo nse to diagn ose novel coron aviru s disea se (COVI D-19) . Clini samuel Infec tious Disea ses. Haritha Ferrari et al. (2019 ) Profi le of Speci fic Antib odies to SARS- CoV-2 : The First Repor t Prakash al of Infec tion (2019 ), doi: https ://do i.org /10.1 016/j .jinf .2019 .03.0 52 Gunner Escobedo et al. (2020 ). Antib brian respo nses to SARS- CoV-2 in COVID -19 patie nts: the persp ectiv e appli catio n of serol ogica l tests in clini samuel pract ice. 10.11 10/0318.2 09195 18. Not Available [address], [place], [address], 08/08/2024 14:36:35 07/20/20 24 08/08/2024 COVID -19 ANTIB ODIES IGM disclaimer NOTES This is a lab devel oped test. This test has been valid ated in [facility] with [facility] Dep[facility] tment of [facility] guide lines and FDA saroj nce docum ent ([place] for diagn ostic testi ng in labor atori es certi fied to perfo rm high compl exity testi ng under CLIA prior to Emerg ency Use Autho rizat ion for Coron aviru s Disea the publi c [facility]) issue d on 2019. This test has not been revie wed by the FDA. Negat jacki resul ts do not precl ude acute SARS- CoV-2 infec tion. If acute infec tion is suspe cted, direc t testi ng for SARS- CoV-2 is neces ping. Resul ts from antib brian testi ng shoul d not be used to diagn ose or exclu de acute SARS- CoV-2 infec tion. Posit jacki resul ts may be due to past or prese nt infec tion with non-S ARS-C oV-2 coron aviru s strai ns, such as coron aviru s HKU1, NL63, OC43, or 229E. Not Available [address], [place], [address], 08/08/2024 14:36:35 07/20/20 24 08/08/2024 COVID -19 ANTIB ODIES IGM electronical ly signed by BECKA Stanley on Fluke r Not Available [address], [place], [address], 08/08/2024 14:36:35 07/20/20 24 07/21/2024 CBC WITH DIFFE RENTI AL/PL ATELE T WBC 11.1 x10e3 /uL 3.4-10 .8 above high normal Eff ectiv e Decem raegan 2023 [place] [address] 5 WBC will be made* * non-o rdera ble as a stand -dalia e order code. Not Available [address], [place], [address], 08/08/2024 14:36:37 07/20/20 24 07/21/2024 CBC WITH DIFFE RENTI AL/PL ATELE T RBC 4.91 x10e6 /uL 3.77-5 .28 Not Available [address], [place], [address], 08/08/2024 14:36:37 07/20/20 24 07/21/2024 CBC WITH DIFFE RENTI AL/PL ATELE T hemoglobin 15.0 g/dL 11.1-1 5.9 Not Available [address], [place], [address], 08/08/2024 14:36:37 07/20/20 24 07/21/2024 CBC WITH DIFFE RENTI AL/PL ATELE T hematocrit 43.8 % 34.0-4 6.6 Not Available [address], [place], [address], 08/08/2024 14:36:37 07/20/20 24 07/21/2024 CBC WITH DIFFE RENTI AL/PL ATELE T MCV 89 fL 79-97 Not Available [address], [place], [address], 08/08/2024 14:36:37 07/20/20 24 07/21/2024 CBC WITH DIFFE RENTI AL/PL ATELE T MCH 30.5 pg 26.6-3 3.0 Not Available [address], [place], [address], 08/08/2024 14:36:37 07/20/20 24 07/21/2024 CBC WITH DIFFE RENTI AL/PL ATELE T MCHC 34.2 g/dL 31.5-3 5.7 Not Available [address], [place], [address], 08/08/2024 14:36:37 07/20/20 24 07/21/2024 CBC WITH DIFFE RENTI AL/PL ATELE T RDW 12.1 % 11.7-1 5.4 Not Available [address], [place], [address], 08/08/2024 14:36:37 07/20/20 24 07/21/2024 CBC WITH DIFFE RENTI AL/PL ATELE T platelets 248 x10e3 /uL 150-45 0 Not Available [address], [place], [address], 08/08/2024 14:36:37 07/20/20 24 07/21/2024 CBC WITH DIFFE RENTI AL/PL ATELE T neutrophils 61 % notest ab. Not Available [address], [place], [address], 08/08/2024 14:36:37 07/20/20 24 07/21/2024 CBC WITH DIFFE RENTI AL/PL ATELE T lymphs 26 % notest ab. Not Available [address], [place], [address], 08/08/2024 14:36:37 07/20/20 24 07/21/2024 CBC WITH DIFFE RENTI AL/PL ATELE T monocytes 6 % notest ab. Not Available [address], [place], [address], 08/08/2024 14:36:37 07/20/20 24 07/21/2024 CBC WITH DIFFE RENTI AL/PL ATELE T eos 5 % notest ab. Not Available [address], [place], [address], 08/08/2024 14:36:37 07/20/20 24 07/21/2024 CBC WITH DIFFE RENTI AL/PL ATELE T basos 1 % notest ab. Not Available [address], [place], [address], 08/08/2024 14:36:37 07/20/20 24 07/21/2024 CBC WITH DIFFE RENTI AL/PL ATELE T neutrophils (absolute) 6.9 x10e3 /uL 1.4-7. 0 Not Available [address], [place], [address], 08/08/2024 14:36:37 07/20/20 24 07/21/2024 CBC WITH DIFFE RENTI AL/PL ATELE T lymphs (absolute) 2.9 x10e3 /uL 0.7-3. 1 Not Available [address], [place], [address], 08/08/2024 14:36:37 07/20/20 24 07/21/2024 CBC WITH DIFFE RENTI AL/PL ATELE T monocytes(ab solute) 0.7 x10e3 /uL 0.1-0. 9 Not Available [address], [place], [address], 08/08/2024 14:36:37 07/20/20 24 07/21/2024 CBC WITH DIFFE RENTI AL/PL ATELE T eos (absolute) 0.5 x10e3 /uL 0.0-0. 4 above high normal Not Available [address], [place], [address], 08/08/2024 14:36:37 07/20/20 24 07/21/2024 CBC WITH DIFFE RENTI AL/PL ATELE T baso (absolute) 0.1 x10e3 /uL 0.0-0. 2 Not Available [address], [place], [address], 08/08/2024 14:36:37 07/20/20 24 07/21/2024 CBC WITH DIFFE RENTI AL/PL ATELE T immature granulocytes 1 % notest ab. Not Available [address], [place], [address], 08/08/2024 14:36:37 07/20/20 24 07/21/2024 CBC WITH DIFFE RENTI AL/PL ATELE T immature grans (abs) 0.1 x10e3 /uL 0.0-0. 1 Not Available [address], [place], [address], 08/08/2024 14:36:37 07/20/20 24 07/22/2024 FE+TI BC+FE R iron bind.cap.(TI BC) 354 ug/dL 250-45 0 Not Available [address], [place], [address], 08/08/2024 14:36:38 07/20/20 24 07/22/2024 FE+TI BC+FE R UIBC 306 ug/dL 131-42 5 Not Available [address], [place], [address], 08/08/2024 14:36:38 07/20/20 24 07/22/2024 FE+TI BC+FE R iron 48 ug/dL 27-159 Not Available [address], [place], [address], 08/08/2024 14:36:38 07/20/20 24 07/22/2024 FE+TI BC+FE R iron saturation 14 % 15-55 below low normal Not Available [address] [facility] [place], [place], [address], 08/08/2024 14:36:38 07/20/20 24 07/22/2024 FE+TI BC+FE R ferritin 203 NG/mL 15-150 above high normal Not Available [address] [place], [address], 08/08/2024 14:36:38 01/19/20 25 01/19/2025 LIPID PANEL W/ CHOL/ HDL RATIO cholesterol, total 194 mg/dL 100-19 9 Not Available [facility] ([facility]) [address] [place], [address], 01/19/2025 13:12:06 01/19/20 25 01/19/2025 LIPID PANEL W/ CHOL/ HDL RATIO triglyceride s 104 mg/dL 0-149 Not Available [facility] ([facility]) [address] [place], [address], 01/19/2025 13:12:06 01/19/20 25 01/19/2025 LIPID PANEL W/ CHOL/ HDL RATIO HDL cholesterol 60 mg/dL >39 Not Available [facility] ([facility]) [address] [place], [address], 01/19/2025 13:12:06 01/19/20 25 01/19/2025 LIPID PANEL W/ CHOL/ HDL RATIO VLDL cholesterol samuel 19 mg/dL 5-40 Not Available [facility] ([facility]) [address] [place], [address], 01/19/2025 13:12:06 01/19/20 25 01/19/2025 LIPID PANEL W/ CHOL/ HDL RATIO LDL chol calc ([facility]) 115 mg/dL 0-99 above high normal Not Available [facility] ([facility]) [address] [place], [address], 01/19/2025 13:12:06 01/19/20 25 01/19/2025 LIPID PANEL W/ CHOL/ HDL RATIO T. chol/HDL ratio 3.2 ratio 0.0-4. 4 T. Chol/ HDL Ratio Men Women 1/2 Avg.R isk 3.4 3.3 Avg.R isk 5.0 4.4 2X Avg.R isk 9.6 7.1 3X Avg.R isk 23.4 11.0 Not Available [facility] ([facility]) [address] [place], [address], 01/19/2025 13:12:06 01/19/20 25 01/19/2025 TSH+F REE T4 TSH 2.400 uIU/m L 0.450- 4.500 Not Available [facility] ([facility]) [address] [place], [address], 01/19/2025 13:12:07 01/19/20 25 01/19/2025 TSH+F REE T4 T4,free(dire ct) 1.10 NG/dL 0.82-1 .77 Not Available [facility] ([facility]) [address] [place], [address], 01/19/2025 13:12:07 01/19/20 25 01/19/2025 COMP. METAB OLIC PANEL (14) glucose 86 mg/dL 70-99 Not Available [facility] ([facility]) [address] [place], [address], 01/19/2025 13:12:07 01/19/20 25 01/19/2025 COMP. METAB OLIC PANEL (14) BUN 14 mg/dL 6-24 Not Available [facility] ([facility]) [address] [place], [address], 01/19/2025 13:12:07 01/19/20 25 01/19/2025 COMP. METAB OLIC PANEL (14) creatinine 1.39 mg/dL 0.57-1 .00 above high normal Not Available [facility] ([facility]) [address] [facility] [place], [address], 01/19/2025 13:12:07 01/19/20 25 01/19/2025 COMP. METAB OLIC PANEL (14) eGFR 48 mL/mi n/1.7 3 >59 below low normal Not Available [facility] ([facility]) [address] [facility] [place], [address], 01/19/2025 13:12:07 01/19/20 25 01/19/2025 COMP. METAB OLIC PANEL (14) BUN/creatini ne ratio 10 9-23 Not Available [facility] ([facility]) [address] [facility] [place], [address], 01/19/2025 13:12:07 01/19/20 25 01/19/2025 COMP. METAB OLIC PANEL (14) sodium 138 mmol/ L 134-14 4 Not Available [facility] ([facility]) [address] [facility] [place], [address], 01/19/2025 13:12:07 01/19/20 25 01/19/2025 COMP. METAB OLIC PANEL (14) potassium 4.1 mmol/ L 3.5-5. 2 Not Available [facility] ([facility]) [address] [facility] [place], [address], 01/19/2025 13:12:07 01/19/20 25 01/19/2025 COMP. METAB OLIC PANEL (14) chloride 102 mmol/ L 96-106 Not Available [facility] ([facility]) [address] [facility] [place], [address], 01/19/2025 13:12:07 01/19/20 25 01/19/2025 COMP. METAB OLIC PANEL (14) carbon dioxide, total 19 mmol/ L 20-29 below low normal Not Available [facility] ([facility]) [address] [place], [address], 01/19/2025 13:12:07 01/19/20 25 01/19/2025 COMP. METAB OLIC PANEL (14) calcium 9.5 mg/dL 8.7-10 .2 Not Available [facility] ([facility]) [address] [place], [address], 01/19/2025 13:12:07 01/19/20 25 01/19/2025 COMP. METAB OLIC PANEL (14) protein, total 7.2 g/dL 6.0-8. 5 Not Available [facility] ([facility]) [address] [place], [address], 01/19/2025 13:12:07 01/19/20 25 01/19/2025 COMP. METAB OLIC PANEL (14) albumin 4.4 g/dL 3.9-4. 9 Not Available [facility] ([facility]) [address] [facility] [place], [address], 01/19/2025 13:12:07 01/19/20 25 01/19/2025 COMP. METAB OLIC PANEL (14) globulin, total 2.8 g/dL 1.5-4. 5 Not Available [facility] ([facility]) [address] [facility], [address], 01/19/2025 13:12:07 01/19/20 25 01/19/2025 COMP. METAB OLIC PANEL (14) bilirubin, total <0.2 mg/dL 0.0-1. 2 Not Available [facility] ([facility] [address] [facility], [address], 01/19/2025 13:12:07 01/19/20 25 01/19/2025 COMP. METAB OLIC PANEL (14) alkaline phosphatase 89 IU/L 44-121 Not Available [facility] ([facility]) [address] [facility], [address], 01/19/2025 13:12:07 01/19/20 25 01/19/2025 COMP. METAB OLIC PANEL (14) AST (SGOT) 30 IU/L 0-40 Not Available [facility] ([facility]) [address] [facility], [place], [address], 01/19/2025 13:12:07 01/19/20 25 01/19/2025 COMP. METAB OLIC PANEL (14) ALT (SGPT) 32 IU/L 0-32 Not Available [facility] ([facility]) [address] [facility], [place], [address], 01/19/2025 13:12:07 01/19/20 25 01/19/2025 VITAM IN B12+F OLATE vitamin B12 >2000 pg/mL 232-12 45 above high normal Not Available [facility] ([facility]) [address] [facility], [place], [address], 01/19/2025 13:12:08 01/19/20 25 01/19/2025 VITAM IN B12+F OLATE folate (folic acid), serum 8.8 NG/mL >3.0 A serum folat e ivett ntrat ion of less than 3.1 ng/mL is consi dered to repre sent clini samuel defic iency . Not Available [facility] ([facility]) [address] [facility], [place], [address], 01/19/2025 13:12:08 01/19/20 25 01/19/2025 HEMOG LOBIN A1C hemoglobin A1C 5.4 % 4.8-5. 6 Predi abete s: 5.7 - 6.4 Diabe naty: >6.4 Glyce maria fernanda contr ol for adult s with diabe naty: <7.0 Not Available [facility] ([facility]) [address] [facility], [place], [address], 01/19/2025 13:12:08 01/19/20 25 01/19/2025 INSUL IN insulin 28.3 uIU/m L 2.6-24 .9 above high normal Not Available [facility] ([facility]) [address] [place], [address], 01/19/2025 13:12:09 01/19/2001/19/2025 CBC WITH DIFFE RENTI AL/PL ATELE T WBC 11.5 x10e3 /uL 3.4-10 .8 above high normal Not Available [facility] ([facility]) [address] [facility], [place], [address], 01/19/2025 13:12:01/19/2001/19/2025 CBC WITH DIFFE RENTI AL/PL ATELE T RBC 4.76 x10e6 /uL 3.77-5 .28 Not Available [facility] ([facility]) [address] [place], [address], 01/19/2025 13:12:09 01/19/2001/19/2025 CBC WITH DIFFE RENTI AL/PL ATELE T hemoglobin 14.3 g/dL 11.1-1 5.9 Not Available [facility] ([facility]) [address] [place], [address], 01/19/2025 13:12:01/19/2001/19/2025 CBC WITH DIFFE RENTI AL/PL ATELE T hematocrit 43.2 % 34.0-4 6.6 Not Available [facility] ([facility]) [address] [place], [address], 01/19/2025 13:12:01/19/2001/19/2025 CBC WITH DIFFE RENTI AL/PL ATELE T MCV 91 fL 79-97 Not Available [facility] ([facility]) [address] [place], [address], 01/19/2025 13:12:09 01/19/2001/19/2025 CBC WITH DIFFE RENTI AL/PL ATELE T MCH 30.0 pg 26.6-3 3.0 Not Available [facility] ([facility]) [address] [facility], [place], [address], 01/19/2025 13:12:09 01/19/20 25 01/19/2025 CBC WITH DIFFE RENTI AL/PL ATELE T MCHC 33.1 g/dL 31.5-3 5.7 Not Available [facility] ([facility]) [address] [facility], [place], [address], 01/19/2025 13:12:09 01/19/20 25 01/19/2025 CBC WITH DIFFE RENTI AL/PL ATELE T RDW 12.4 % 11.7-1 5.4 Not Available [facility] ([facility]) [address] [facility], [place], [address], 01/19/2025 13:12:09 01/19/20 25 01/19/2025 CBC WITH DIFFE RENTI AL/PL ATELE T platelets 262 x10e3 /uL 150-45 0 Not Available [facility] ([facility]) [address] [place], [address], 01/19/2025 13:12:09 01/19/20 25 01/19/2025 CBC WITH DIFFE RENTI AL/PL ATELE T neutrophils 65 % notest ab. Not Available [facility] ([facility]) [address] [place], [address], 01/19/2025 13:12:09 01/19/20 25 01/19/2025 CBC WITH DIFFE RENTI AL/PL ATELE T lymphs 23 % notest ab. Not Available [facility] ([facility]) [address] [place], [address], 01/19/2025 13:12:09 01/19/20 25 01/19/2025 CBC WITH DIFFE RENTI AL/PL ATELE T monocytes 7 % notest ab. Not Available [facility] ([facility]) [address] [facility], [place], [address], 01/19/2025 13:12:09 01/19/20 25 01/19/2025 CBC WITH DIFFE RENTI AL/PL ATELE T eos 4 % notest ab. Not Available [facility] ([facility]) [address] [facility], [place], [address], 01/19/2025 13:12:09 01/19/20 25 01/19/2025 CBC WITH DIFFE RENTI AL/PL ATELE T basos 1 % notest ab. Not Available [facility] ([facility]) [address] [facility], [place], [address], 01/19/2025 13:12:09 01/19/20 25 01/19/2025 CBC WITH DIFFE RENTI AL/PL ATELE T neutrophils (absolute) 7.4 x10e3 /uL 1.4-7. 0 above high normal Not Available [facility] ([facility]) [address] [facility], [place], [address], 01/19/2025 13:12:09 01/19/20 25 01/19/2025 CBC WITH DIFFE RENTI AL/PL ATELE T lymphs (absolute) 2.7 x10e3 /uL 0.7-3. 1 Not Available [facility] ([facility]) [address] [facility], [place], [address], 01/19/2025 13:12:09 01/19/20 25 01/19/2025 CBC WITH DIFFE RENTI AL/PL ATELE T monocytes(ab solute) 0.8 x10e3 /uL 0.1-0. 9 Not Available [facility] ([facility]) [address] [facility], [place], [address], 01/19/2025 13:12:09 01/19/20 25 01/19/2025 CBC WITH DIFFE RENTI AL/PL ATELE T eos (absolute) 0.5 x10e3 /uL 0.0-0. 4 above high normal Not Available [facility] ([facility]) [address] [facility], [place], [address], 01/19/2025 13:12:09 01/19/20 25 01/19/2025 CBC WITH DIFFE RENTI AL/PL ATELE T baso (absolute) 0.1 x10e3 /uL 0.0-0. 2 Not Available [facility] ([facility]) [address] [facility], [place], [address], 01/19/2025 13:12:09 01/19/20 25 01/19/2025 CBC WITH DIFFE RENTI AL/PL ATELE T immature granulocytes 0 % notest ab. Not Available [facility] ([facility]) [address] [facility], [place], [address], 01/19/2025 13:12:09 01/19/20 25 01/19/2025 CBC WITH DIFFE RENTI AL/PL ATELE T immature grans (abs) 0.0 x10e3 /uL 0.0-0. 1 Not Available [facility] ([facility]) [address] [facility], [place], [address], 01/19/2025 13:12:09 07/18/20 24 07/18/2024 XR, chest , 2 view No observ ation record ed. [email or web address] [facility] [address], [place], [address], 07/20/2024 15:34:23 07/20/20 24 07/20/2024 , estela wood No observ ation record ed. TORO [facility] [address], [place], [address], 07/24/2024 18:05:30 09/22/19 25 08/25/2023 MAMMO , scree latricia, digit al, bilat eral No observ ation record ed. BARCODE Not Available 2024 19:59:41 Result Notes None recorded. Problems Name Problem SNOMED Code Status Onset Date Resolution Date Notes Provider Name and Address Organization Details Recorded Time Generalized anxiety disorder 35852194 Active 2023 BALTA Dalton Attn: Marcos benton,[address], [place], [address], [place] - [facility] 4 18:12:08 Long-term drug therapy Active 2023 BALTA Dalton Attn: Marcos benton,[address] [facility], [place], [address], [place] - [facility] 4 18:12:09 Obesity 347818379 Active 2023 BALTA Dalton Attn: Marcos benton,[address] [facility], [place], [address], [place] - [facility] 4 18:12:27 Difficulty swallowing food 626781903 Active 2023 BALTA Dalton Attn: Marcos benton,[address] [facility], [place], [address], [place] - [facility] 4 18:12:53 Fatigue 99761427 Active 2023 BALTA Dalton Attn: Marcos benton,[address] [facility], [place], [address], [place] - [facility] 4 09:09:22 Body mass index 25-29 - overweight 561290002 Active 2024 Miki Smith MA null, [place] - [facility] 5 08:57:01 Major depressive disorder 678246933 Active 2024 BALTA Dalton Attn: Marcos benton,[address] [facility], [place], [address], [place] - [facility] 5 09:06:27 Positive screening for depression on PHQ-9 (Patient Health Questionnai re 9) [id number] 00 Active 2024 BALTA Dalton Attn: Marcos benton,[address], [place], [address], [facility] - [facility] 09:09:23 Problem Notes None recorded. Procedures Surgical History Date Name Laterality Status Provider Name and Address Organization Details Recorded Time perinasal sinusotomy completed Miki Smith MA [place] - [facility] 07/20/2024 15:18:16 Imaging Results Imaging Date Name Status LastModified by Organiz ation Details LastModified Time 07/18/2024 XR, chest, 2 view completed [email or web address] [facility] [address], [place], [address], 07/20/2024 15:34:23 07/20/2024 US, kidney completed [facility] [address], [place], [address], 07/24/2024 18:05:30 08/25/2023 MAMMO, screening, digital, bilateral completed BARCODE Information not available 09/22/2024 19:59:41 Procedure Notes None recorded. Medical Equipment None Reported. Allergies No known drug allergies Medications Name Sig Start Date Stop Date Status Note LastModified by Organization Details LastModified Time Prescriptio n - Prior Authorizati on Request active Not Available Not Available N ot Available promethazin e-DM 6.25 mg-15 mg/5 mL oral syrup TAKE 5 ML BY MOUTH AT BEDTIME NEEDED FOR COUGH. 07/20 completed Not Available Not Available Not Available doxycycline hyclate 100 mg capsule Take 1 capsule twice a day by oral route with meal(s). 08/18 completed Not Available Not Available Not Available tolterodine ER 4 mg capsule,ext ended release 24 hr 07/20 completed Not Available Not Available Not Available spironolact one 100 mg tablet TAKE 1 TABLET BY MOUTH DAILY active Not Available Not Available No t Available terconazole 0.8 % vaginal cream APPLY SMALL AMOUNT VAGINALLY TO THE AFFECTED AREA EVERY NIGHT AT BEDTIME FOR 3 DAYS DIRECTED 12/14 completed Not Available Not Available Not Available Zithromax Z-Ricardo 250 mg tablet TAKE 2 TABLETS (500 MG) BY ORAL ROUTE ONCE DAILY FOR 1 DAY THEN 1 TABLET (250 MG) BY ORAL ROUTE ONCE DAILY FOR 4 DAYS 12/14 completed Not Available Not Available Not Available estradiol 0.05 mg/24 hr semiweekly transdermal patch APPLY 1 PATCH TOPICALLY TO THE SKIN 2 TIMES A WEEK DIRECTED 07/20 completed Not Available Not Available Not Available ciprofloxac in 500 mg tablet TAKE 1 TABLET BY MOUTH EVERY 12 HOURS active Not Available Not Available No t Available minoxidil 2.5 mg tablet TAKE 1 TABLET BY MOUTH DAILY active Not Available Not Available No t Available benzonatate 100 mg capsule TAKE 1 TO 2 CAPSULES BY MOUTH THREE TIMES DAILY NEEDED FOR COUGH. MAXIMUM 6 CAPSULE IN 24 HOURS FOR DAYTIME COUGH 07/20 completed Not Available Not Available Not Available hydrocodone 7.5 mg-acetamin ophen 325 mg tablet TAKE 1 TABLET BY MOUTH EVERY 4 HOURS NEEDED 02/16 completed Not Available Not Available Not Available cephalexin 500 mg capsule TAKE 1 CAPSULE BY MOUTH FOUR TIMES DAILY 12/31 completed Not Available Not Available Not Available triamcinolo ne acetonide 0.1 % topical ointment APPLY EXTERNALL Y TO THE AFFECTED AREA TWICE DAILY NEEDED FOR ITCHING active Not Available Not Available No t Available clotrimazol e-betametha sone 1 %-0.05 % topical cream APPLY LIBERALLY TOPICALLY TO THE AFFECTED AREA TWICE DAILY 12/14 completed Not Available Not Available Not Available progesteron e micronized 200 mg capsule TAKE 1 CAPSULE BY MOUTH EVERY DAY active Not Available Not Available No t Available sertraline 25 mg tablet TAKE 1 TABLET BY MOUTH EVERY DAY 07/20 completed Not Available Not Available Not Available hydrocortis one 2.5 % topical cream APPLY TO SPOTS TWICE DAILY active Not Available Not Available No t Available mometasone 0.1 % topical ointment APPLY TO THE AFFECTED AREA TWICE DAILY X 1-2 WEEKS DIRECTED 12/14 completed Not Available Not Available Not Available mupirocin 2 % topical ointment APPLY EXTERNALL Y TO THE BRIDGE OF THE NOSE THREE TIMES DAILY FOR 5 DAYS 12/31 completed Not Available Not Available Not Available methylpredn isolone 4 mg tablets in a dose pack FOLLOW PACKAGE DIRECTION S 08/10 completed Not Available Not Available Not Available ondansetron 4 mg disintegrat ing tablet DISSOLVE 1 TABLET ON THE TONGUE EVERY 12 HOURS FOR 3 DAYS NEEDED FOR NAUSEA OR VOMITING 12/14 completed Not Available Not Available Not Available cefdinir 300 mg capsule TAKE 1 CAPSULE BY MOUTH EVERY 12 HOURS 08/10 completed Not Available Not Available Not Available sertraline 50 mg tablet TAKE 1 TABLET BY MOUTH EVERY DAY active Not Available Not Available No t Available progesteron e micronized 100 mg capsule TAKE 1 CAPSULE BY MOUTH EVERY DAY AT BEDTIME 07/20 completed Not Available Not Available Not Available bupropion HCl XL 150 mg 24 hr tablet, extended release TAKE 1 TABLET BY MOUTH EVERY DAY active Not Available Not Available No t Available Lyllana 0.025 mg/24 hr transdermal patch APPLY 1 PATCH TOPICALLY TO THE SKIN 2 TIMES A WEEK active Not Available Not Available No t Available Ozempic 1 mg/dose (4 mg/3 mL) subcutaneou s pen injector Inject 1 mL by subcutane ous route. 12/14 completed Not Available Not Available Not Available semaglutide (weight loss) active Not Available Not Available Not Available Vitals Date Recorded Body height Body mass index (BMI) Body weight Oxygen saturation Oxygen saturation in Arterial blood by Pulse oximetry Heart rate Respiratory rate Systolic blood pressure Diastolic blood pressure Provider Name and Address Organization Details Last Updated DateTime 4 162.56 cm 34.6 kg/m2 88461.2 2 g 98 % 98 % 77 /min 20 /min 126 mm[Hg] 82 mm[Hg] Miki Smith [place] [facility] 4 15:21:34 Date Recorded Body height Body mass index (BMI) Body weight Respiratory rate Oxygen saturation Oxygen saturation in Arterial blood by Pulse oximetry Heart rate Systolic blood pressure Diastolic blood pressure Provider Name and Address Organization Details Last Updated DateTime 4 162.56 cm 30.6 kg/m2 35059.4 4 g 20 /min 98 % 98 % 84 /min 122 mm[Hg] 82 mm[Hg] Miki Smith [place] [facility] 4 15:20:51 Date Recorded Body height Body mass index (BMI) Body weight Oxygen saturation Oxygen saturation in Arterial blood by Pulse oximetry Heart rate Respiratory rate Systolic blood pressure Diastolic blood pressure Provider Name and Address Organization Details Last Updated DateTime 162.56 cm 26.8 kg/m2 36612.4 1 g 98 % 98 % 85 /min 20 /min 118 mm[Hg] 82 mm[Hg] Miki Smith MA [facility] 08:58:24 Date Recorded Systolic blood pressure Diastolic blood pressure Provider Name and Address Organization Details Last Updated DateTime 12/14/2024 110 mm[Hg] 80 mm[Hg] BALTA Dalton Attn: Accounting,[address], [place], [address], [facility] 12/14/2024 09:17:22 Social History Question Answer Notes LastModified by Organizat ion Details LastModified Time Tobacco Smoking Status Never Smoker Miki Smith MA [facility], [facility] 02/17/2024 15:19:29 Do You Have An Advance Directive? No Information not available 02/17/2024 Are You Blind Or Do You Have Difficulty Seeing? No Glasses Readinf Information not available 02/17/2024 What Is Your Level Of Caffeine Consumption? Moderate Information not available 02/17/2024 In The 14 Days Before Symptom Onset, Have You Had Close Contact With A Laboratory-confir med COVID-19 While That Case Was Ill? No Information not available 02/16/2024 In The 14 Days Before Symptom Onset, Have You Had Close Contact With A Person Who Is Under Investigation For COVID-19 While That Person Was Ill? No Information not available 02/16/2024 Have You Been To An Area Known To Be High Risk For COVID-19? No Information not available 02/16/2024 Are You Deaf Or Do You Have Serious Difficulty Hearing? No Information not available 02/17/2024 What Type Of Diet Are You Following? REGULAR Information not available 02/17/2024 Are There Any Guns Present In Your Home? No Information not available 02/17/2024 What Was The Date Of Your Most Recent Tobacco Screening? 12/14/2024 Information not available 12/14/2024 Do You Use Your Seat Belt Or Car Seat Routinely? Yes Information not available 02/16/2024 Do You Have Smoke And Carbon Monoxide Detectors In Your Home? Yes Information not available 02/16/2024 Do You Use Sunscreen Routinely? Yes Information not available 02/17/2024 Has Tobacco Cessation Counseling Been Provided? Yes Information not available 02/16/2024 On What Date Was Tobacco Cessation Counseling Provided? 12/14/2024 Information not available 12/14/2024 Sex: Female Functional Status Question Answer Note LastModified by Organizat ion Details LastModified Time Do you use any illicit or recreational drugs? No Information not available 02/17/2024 Do you or have you ever used any other forms of tobacco or nicotine? No Information not available 02/17/2024 What is your level of alcohol consumption? Occasional Information not available 02/17/2024 Are you currently employed? Yes Information not available 12/14/2024 Are you able to care for yourself? Yes Information n ot available 02/16/2024 What is your exercise level? Moderate Information not available 02/17/2024 Mental Status Question Answer Note LastModified by Organization D etails LastModified Time Do you feel stressed (tense, restless, nervous, or anxious, or unable to sleep at night)? [id number] Information not available 07/20/2024 Family History Relationship Description Onset Age of this Age Resolved Age Notes LastModified by Organization Details LastModified Time Mother Malignant tumor of colon tcarterma Not available 2023 15:28:40 Mother Diabetes mellitus tcarterma Not available 2023 15:28:50 Mother Hypertensive disorder tcarterma Not available 2023 15:29:02 Mother Hypercholest erolemia tcarterma Not available 2023 15:29:10 Father Coronary arterioscler osis tcarterma Not available 2023 15:28:46 Father Heart disease tcarterma Not available 2023 15:28:54 Father Hypertensive disorder tcarterma Not available 2023 15:29:02 Father Hypercholest erolemia tcarterma Not available 2023 15:29:10 Medical History Condition Response Coronary Artery Disease N Other N High Blood Pressure N Atrial Fibrillation N Kidney or Bladder Problems N Thyroid Problems Y GI Problems N Depression N COPD N Blood Clots N Skin Problems N Anemia N Heart Attack (MT) N Anxiety Disorder Y Diabetes N Muscle, Joint, or Bone Problems N Seizures/Epilepsy N Acid Reflux (GERD) Y Cancer N Stroke N Asthma N Allergies N High Cholesterol N Hepatitis N Liver Disease N Headaches N Heart Failure N Osteoporosis N Gynecological History Statement/Question Response Menses Monthly N Current Control Method None Obstetrics History GPAL:G 3 P 2 0 0 2 Type Value Full Term 2 Induced 0 Spontaneous 0 Premature 0 Living 2 Total 3 Immunizations Vaccine Type Date Status Note Provider Nam e and Address Organization Details Recorded Time Influenza, split virus, quadrivalent, preservative 9 completed JOSE CARLOS [place], [place] - [facility] 07/11/2024 11:20:16 Influenza, MDCK, quadrivalent, PF 1 completed Miki Smith [place], [place] [facility] 07/11/2024 11:20:16 COVID-19, mRNA, LNP-S, PF, 100 mcg/0.5mL dose or 50 mcg/0.25mL dose 1 completed Miki [place], [place] [facility] 07/11/2024 11:20:16 COVID-19, mRNA, LNP-S, PF, 100 mcg/0.5mL dose or 50 mcg/0.25mL dose 1 completed JOSE CARLOS [place] [facility] 07/11/2024 11:20:16 COVID-19, mRNA, LNP-S, PF, 100 mcg/0.5mL dose or 50 mcg/0.25mL dose 1 completed JOSE CARLOS [place] [facility] 07/11/2024 11:20:16 Influenza, split virus, trivalent, preservative 2 completed JOSE CARLOS [place] [facility] 07/11/2024 11:20:16 Influenza, split virus, quadrivalent, PF 0 completed Miki Smith MA [place], [place] - [facility] 07/11/2024 11:20:16 Past Encounters Encounter ID Performer Location Encounter Start Date Encounter Closed Date Diagnosis/Indication Diagnosis SNOMED-CT Code Diagnosis ICD10 Code Diagnosis Note [id number] Zbigniew Clark MD [facility] Five minutes [address] [place] [address] 02/17/2024 14:40:15 02/24/2024 11:54:49 Adult health examination 733460273 Z00.00 annual wellness completed Cholesterol screening 27 9087760 Z13.220 fasting lipids due Diabetes m ellitus screening 895737522 Z13.1 a1c screening due Thyroid di sorder screening 614722019 Z13.29 routine thyroid panel due Long-term drug therapy 589541854 Z79.899 cmp, cbc and b12, folate labs are due Generalize d anxiety disorder 34278693 F41.1 stable on sertraline 25mg daily. Body mass index 30+ - obesity 396846579 Z68.34 Obesity 964899577 E66.8 discussed healthy diet, exercise, controllin g carbohydra naty and added sugars in the diet Difficulty swallowing food 896094675 R13.10 EGD has been ordered already. pt is still to schedule. [id number] Zbigniew Clark MD [facility] [address] [place] [address] 07/20/2024 15:06:34 07/25/2024 16:14:13 Fatigue 98631192 R53.83 For fatigue panel we will check to see if the patient had any recent COVID infection by checking COVID-19 IgM antibodies will also check an Carlota bar virus profile as well as iron studies, CBC and CMP for fatigue which is much worse than usual. Sinusitis 28350347 J32.9 We will start a Medrol Dosepak and cefdinir 300 mg twice daily for 7 days [id number] Zbigniew Clark MD [facility] minutes [address] [place] [address] 12/14/2024 08:49:28 12/14/2024 09:22:30 Body mass index 25-29 - overweight 555883439 Z68.26 BMI 26.8 Overweight 660037763 E66 .3 Generalize d anxiety disorder 84478797 F41.1 stable on sertraline 50mg daily. Anxiety is overall stable it is more of a depression exacerbati on at this time Long-term drug therapy 447610647 Z79.899 All labs are due in March Positive s creening for depression on PHQ-9 (Patient Health Questionnaire 9) 3978699095 14736 Z13.31 pt scored a 6 on screening today. We have made the addition of Wellbutrin to her regimen to target depression . Major depr essive disorder 346705133 F32.9 a lot of life stress , especially at home, her lost his job and he had major clinical depression . she is spread then. Add Wellbutrin XL 150 mg daily to target depressive symptoms. Follow-up in February for her routine wellness Cholesterol screening 27 4669796 Z13.220 fasting lipids due Diabetes m ellitus screening 738329914 Z13.1 a1c screening due Thyroid di sorder screening 524566465 Z13.29 routine thyroid panel due Difficulty swallowing food 357242487 R13.10 EGD has been ordered already. pt is still to schedule. Health Concerns Section Related Observation LastModified by Organization Detai ls LastModified Time None Recorded Concern Status LastModified by Organization Details LastModified Time None Recorded Advance Directives Directive N: Payers Encounter Date Sequence Insurance Name Policy Number Policy Harmon Covered Member ID Harmon Member ID Guarantor Name 02/17/2024 1 [facility] [id number] Sameera Arceo [id number] Sameera Arceo 07/20/2024 1 [facility] [id number] [place] Ad[place] [id number] Sameera Arceo 12/14/[address] [place] [address] [id number] [facility] [id number] Sameera Arceo Notes Date Note Type Note Provider Name and Address Organization Details Recorded Time 4 text/html Anxiety/DepressionReported bypatient.Notes:stable on sertraline therapy. no complaints. BALTA Dalton Attn: Accounting,[address] [place], [address], [place] [facility] 02/23/2024 18:13:27 4 text/html FatigueReported bypatient.Quality:continuou s Severity:normal sleep patterns; normal activity;worsening; severe Duration:constant Timing:worse Context:no problems/stress at work or home;symptoms do not improve on weekends/vacations Modifying Factors:no new stressors in life; taking vitamins Associated Symptoms:no drug/alcohol withdrawal; no depression; no sleep disturbances; no snoring; periods of not breathing (apnea) have not been observed; no recent change in weight;anxietySinusitis/All ergyReported bypatient.Location:maxillar y; frontal Associated Symptoms:facial pain;sinus pain;nasal discharge Onset/Timing:recurring Quality:congested Context:worse with seasonal allergen exposure;worse with environmental exposure Risk Factors:no current smoking or tobacco use; no history of smoking; no history of asthma Alleviating factors:nothing gives relief Prior opinionPCP BALTA Dalton Attn: Accounting,[address] [place] [address], [phone], [facility] [place] 08/08/2024 09:09:36 text/html Anxiety/DepressionReported bypatient.Quality:mood worse Severity:denies suicidal ideations; able to maintain relationships Duration:frequent; symptoms lasting over 2 weeks Onset/Timing:still present Context:major life stressors;family problems Modifying Factors:social support; medications as directed Associated Symptoms:denies homicidal ideations; no significant weight gain; no significant weight loss;emotional lability;anxiety;depression ;anxiety with muscle tensionFatigueReported bypatient.Quality:continuou s Severity:normal sleep patterns; normal activity;worsening; severe Duration:constant Timing:worse Context:no problems/stress at work or home;symptoms do not improve on weekends/vacations Modifying Factors:no new stressors in life; taking vitamins Associated Symptoms:no drug/alcohol withdrawal; no depression; no sleep disturbances; no snoring; periods of not breathing (apnea) have not been observed; no recent change in weight;anxiety BALTA Dalton Attn: Accounting,[address] [place], [address], [facility] 01/07/2025 15:49:33 OBGyn Episode No OBEpisode recorded.
--- OUTSIDE RECORDS SUMMARY | 2025-01-23 15:17 | XMS_ITS | Encounter Summary ---
Author Organization [facility] Address [address] [place] [address] Care Team Providers Care Configuration Management Specialist Name Role Phone Unavailable Primary Care Provider Unavailabl e Encounter Details Date Type Department Care Team (Late st Contact Info) Description 12/08/2018 Lab Requisition [facility] Care DermPath Lab [address] [place] [id number] [phone] Galina Bejarano MD [address] [address] [place] [address] Social History Tobacco Use Types Packs/Day Years Used Date Smoking Tobacco: Never Smokeless Tobacco: Never Alcohol Use Standard Drinks/Week Comments No 0 (1 standard drink = 0.6 oz pur e alcohol) Comments No Sex and Gender Information Value Date Recorded Sex Assigned at Not on file Legal Sex Female 5:06 AM [employer] Gender Identity Not on file Sexual Orientation Not on file documented as of this encounter Plan of Treatment Not on file documented as of this encounter Procedures Procedure Name Priority Date/Time Associated Diagnosis Comments DERMATOPATHOLOGY Routine 12/07/2018 12:0 0 AM CDT documented in this encounter Results * DERMATOPATHOLOGY (12/07/2018 12:00 AM CDT) Case Report Dermatopathology Report Case: [id number] Authorizing Provider: Galina Bejarano MD Collected: 12/07/2018 12:00 AM Pathologist: Paris Stearns MD Received: 12/08/2018 09:10 AM Specimen: Skin, right chest 12:44 PM CDT DERMATOPATHOLOGY LABORATORY Final Diagnosis Specimen A. SKIN, right chest: COMPOUND MELANOCYTIC NEVUS, IRRITATED (D22.5) 12:44 PM CDT DERMATOPATHOLOGY LABORATORY Clinical History R/O nevus, growing, irritated. 12:44 PM CDT DERMATOPATHOLOGY LABORATORY Gross Description Specimen A: Received is one formalin filled container labeled with the patient's name and designated right chest. The specimen consists of a shave biopsy measuring 6x5x2 mm. Jar 0. 12:44 PM CDT DERMATOPATHOLOGY LABORATORY Microscopic Description Specimen A. SKIN, right chest: There is melanin pigment in the stratum corneum. There are nests of melanocytes at the dermal-epidermal junction and within the dermis. 12:44 PM CDT DERMATOPATHOLOGY LABORATORY Disclaimer An external and internal positive and negative controls are appropriate for the histochemical, immunohistochemical and immunofluorescence stain(s) in this case (if any), except where stated explicitly. The performance characteristics of the stain(s) cited in this report were developed and its performance characteristic determined by the Dermatopathology Laboratory at [facility], directed by Dr. Diana Shukla. These tests need not be, and therefore are not, approved by the [place] Food and Drug Administration. The tests are used for clinical purposes. Billing Codes Specimen Charges Stain Charges 30579 1 12:44 PM CDT DERMATOPATHOLOGY LABORATORY Embedded Images 12:44 PM CDT DERMATOPATHOLOGY LABORATORY Pathology/Cytolog y TISSUE SPECIMEN FROM SKIN / Unknown 12/07/2018 12/08/2018 9:10 AM CDT Galina Bejarano MD LAB - PATHOLOGY/CYTOLOGY OR DERABLES Final Result DERMATOPATHOLOGY LABORATORY [facility] - Department of Dermatology [address] [place] [address], [address] [place] [address], [facility] [phone] documented in this encounter Visit Diagnoses Not on filedocumented in this encounter
--- OUTSIDE RECORDS SUMMARY | 2025-01-23 15:17 | XMS_ITS | Clinical Summary ---
Author Organization [facility] Address [address] [place] [address] Care Team Providers Care Investigation Lieutenant Name Role Phone Unavailable Primary Care Provider Unavailabl e Source Comments [facility],non-owned Affiliates and Associated Physician Practices is amultiple site organization consisting of ambulatory clinics and hospital sitesin [place], [place], [place] and [place]. This disclosure is being madepursuant to the Care Everywhere program and may not contain all information available regarding this patient. Last updated 18.[facility] Allergies No known active allergies Medications * Be aware that medications may not be up to date on this document. Alwaysverify current medications with the patient. VITAMINS PO Take by mouth. Act rey enoxaparin (LOVENOX) injection Inject 40 mg subcutaneously once daily. Active aspirin EC (ECOTRIN) 81 MG tablet Take 81 mg by mouth once daily. Active docusate sodium (COLACE) 100 MG capsule Take 100 mg by mouth once daily. Active diphenhydrAMIN E (BENADRYL) 25 MG capsule Take 25 mg by mouth every 4 hours as needed. 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 Previous stillbirth or demise, antepartum 2011 Family history of diabetes mellitus; her mother 04/23/2012 Family History Medical History Relation Name Comments Diabetes Mother Relation Name Status Comments Mother Social History Tobacco Use Types Packs/Day Years Used Date Smoking Tobacco: Never Smokeless Tobacco: Never Alcohol Use Standard Drinks/Week Comments No 0 (1 standard drink = 0.6 oz pur e alcohol) Comments No Sex and Gender Information Value Date Recorded Sex Assigned at Not on file Legal Sex Female 5:06 AM DESIGN SALES CONSULTANT Gender Identity Not on file Sexual Orientation Not on file Last Filed Vital Signs Vital Sign Reading Time Taken Comments Blood Pressure 125/71 09/23/2012 9:22 AM DESIGN SALES CONSULTANT Pulse 95 09/23/2012 9:22 AM DESIGN SALES CONSULTANT Temperature - - Respiratory Rate 20 09/23/2012 9:22 AM DESIGN SALES CONSULTANT Oxygen Saturation - - Inhaled Oxygen Concentration - - Weight 72.1 kg (159 lb) 09/23/2012 9:22 AM DESIGN SALES CONSULTANT Height 162.6 cm (5' 4 ) 07/22/2012 1:42 PM [employer]IGN SALES [employer]SULTANT Body Mass Index 27.29 07/22/2012 1:42 PM DESIGN SALES CONSULTANT Plan of Treatment Health Maintenance Due Date Last Done Comments LIPID TESTING 1980 MAMMOGRAM 1980 HIV SCREENING 1995 HEPATITIS C SCREENING 02/26/1998 DTAP/TDAP/TD VACCINES (1 - Tdap) 1999 HEPATITIS B VACCINE (1 of 3 - 19+ 3-dose series) 1999 COVID-19 VACCINE (1 - 2023-2 5 season) 2024 DEPRESSION SCREENING 09/14/2024 INFLUENZA VACCINE (Season Ended) 2025 ZOSTER VACCINE (1 of 2) 2030 HIB VACCINE Aged Out No longer eligi ble based on patient's age to complete this topic HPV VACCINE Aged Out No longer eligi ble based on patient's age to complete this topic MENINGOCOCCAL (Group B) VACC INE SHARED DECISION-MAKING Aged Out No longer eligibl e based on patient's age to complete this topic MENINGOCOCCAL GROUPS A/C/Y/W VACCINE Aged Out No longer eligible b ased on patient's age to complete this topic PNEUMOCOCCAL VACCINE Aged Out No long er eligible based on patient's age to complete this topic Insurance [facility]
--- OUTSIDE RECORDS SUMMARY | 2025-01-23 15:17 | XMS_ITS | Data Portability ---
Author Organization [facility] [employer] In in Office Address [address] [place] [address] Assessment Encounter Date Assessment Date Assessment LastModified by Organization Details LastModified Time 06/30/2024 06/30/2024 I spent 15 minutes of oseg-et-ljoz counselling and care coordination time with the patient. This includes reviewing medical records (medical, surgical, family and social history); updating medication and allergy information in the electronic health record; and ordering labs, medications, and education materials to continue patient care. Not available 06/30/2024 18:21:38 08/01/2024 08/01/2024 I spent 15 minutes of egxk-xb-ufde counselling and care coordination time with the patient. This includes reviewing medical records (medical, surgical, family and social history); updating medication and allergy information in the electronic health record; and ordering labs, medications, and education materials to continue patient care. Not available 08/12/2024 15:34:52 09/26/2024 09/26/2024 I spent 15 minutes of nanp-rr-jjog counselling and care coordination time with the patient. This includes reviewing medical records (medical, surgical, family and social history); updating medication and allergy information in the electronic health record; and ordering labs, medications, and education materials to continue patient care. Not available 09/28/2024 16:58:46 10/24/2024 10/24/2024 I spent 15 minutes of scof-ld-nnxv counselling and care coordination time with the patient. This includes reviewing medical records (medical, surgical, family and social history); updating medication and allergy information in the electronic health record; and ordering labs, medications, and education materials to continue patient care. Not available 10/27/2024 23:00:55 12/19/2024 12/19/2024 I spent 15 minutes of ggno-un-qwct counselling and care coordination time with the patient. This includes reviewing medical records (medical, surgical, family and social history); updating medication and allergy information in the electronic health record; and ordering labs, medications, and education materials to continue patient care. Not available 12/19/2024 19:24:19 Plan of Treatment Reminders Order Date Submit Date Provider Last Modified By Organization Details Last Modified Time Details Appointments [id number] 2024 09:30A Haroon Lynn NP Not available Not available Not available Lab None recorded. Referral None recorded. Procedures None recorded. Surgeries None recorded. Imaging None recorded. Medication Orders estradiol 0.025 mg/24 hr semiweekl y transderm al patch 2024 025 [id number], [address], [place], [id number], 12/19/2024 20:13:12 progester one micronize d 200 mg capsule 2024 025 [facility] #[id number], [address], [place], [id number], 12/19/2024 20:13:10 Bundle D: 1.5 mL/week - [facility] 2024 025 [facility] ([facility] Fax), [address] [place] [address], [address], 10/24/2024 19:36:30 Bundle C: 1.0 mL/week - [facility] 2023 024 [facility] ([facility] Fax), [address], [address], 08/01/2024 17:18:31 Bundle D: 1.5 mL/week - [facility] 2023 024 [facility] ([facility] Unmonitored Fax), [address], [address], 08/01/2024 17:18:31 Bundle C: 1.0 mL/week - [facility] 2023 024 [facility] (Cl[facility] Unmonitored Fax), [address], [address], 06/30/2024 18:05:50 Patient TargetsNo targets recorded. Patient Instructions Encounter Date Encounter Id Patient Instructions Last Modified By Organization Details Last Modified Time 06/30/2024 [id number] Any requested follow-up visits are listed below in the Plan of Care section. Go directly to the [employer] transportation director at [email or web address] to book a time. Not available 06/30/2024 18:20:23 It was a pleasur e to meet with you today! We discussed your health concerns related to weight loss and insulin management. Your Care Plan Together, we decided that you would: - Continue taking the compound semaglutide 1 mg. This medication has been helping you manage your weight. - We will monitor your progress and potentially adjust the dosage next month if needed. - We have scheduled a follow-up appointment for Thursday, the , at 4 o'clock to discuss your progress and any potential changes to your treatment plan. Please carefully review the care plan we have decided upon, specific information regarding your medication, and important details about your treatment detailed below. Thank you for trusting us with your care! Not available 06/30/2024 18:35:22 08/01/2024 [id number] Any requested follow-up visits are listed below in the Plan of Care section. Go directly to the [employer] transportation director at [email or web address] to book a time. Not available 08/12/2024 15:34:23 It was a pleasur e to meet with you today! We discussed your health concerns related to your weight loss journey. Your Care Plan Together, we decided that you would: - Continue with your current medication dosage. - Consider increasing your medication dosage from 1 to 1.5, depending on your weight loss progress this week. I will send in prescriptions for both dosages so you can decide which one to use. - Weigh yourself on or Thursday to determine if your weight has decreased. Based on this, you will decide whether to stick with the current dosage or increase it. - Order your chosen medication dosage this weekend. - Continue taking your fiber supplement once it arrives, as it seems to have a positive impact on your bowel movements. - Start taking a probiotic, which can also support your digestive health. - Schedule a follow-up appointment for September 26 at 4:45 pm to discuss your progress and any adjustments to your treatment plan. Please remember that you can reach out to me via the patient portal if you have any questions or concerns, or if you experience any problems with your treatment. Thank you for trusting us with your care! Not available 08/12/2024 15:34:23 09/26/2024 [id number] Any requested follow-up visits are listed below in the Plan of Care section. Go directly to the [facility] [employer] director at [email or web address] to book a time. Not available 09/28/2024 16:58:32 It was a pleasur e to meet with you today! We discussed your health concerns related to perimenopausal disorder, pre-diabetes, and obesity. Your Care Plan Together, we decided that you would continue with your current treatment plan, which includes: - Continuing the use of compound semaglutide at a dose of 1.5 milligrams weekly. This medication has been effective in helping you achieve your weight loss goals. You've made significant progress, reducing your weight from 194 pounds to 167 pounds. - Continuing the use of an estradiol patch and progesterone pill for your perimenopausal symptoms. You have been tolerating this treatment well. - I will complete a letter regarding treatment for your [employer] account and message through portal when completed. Please remember that it's important to continue with your current treatment plan to manage your perimenopausal symptoms and to continue making progress towards your weight loss goals. Thank you for trusting us with your care! Not available 10/05/2024 10:48:50 10/24/2024 [id number] Any requested follow-up visits are listed below in the Plan of Care section. Go directly to the [employer] transportation director at [email or web address] to book a time. Not available 10/27/2024 23:00:01 It was a pleasur e to meet with you today! We discussed your health concerns related to your weight and the side effects you've been experiencing from your current medication dosage. Your Care Plan Together, we decided that you would: - Continue your current medication dosage of 1.5 for the next 8 weeks. This is to help you reach your weight goal of getting down to the 150s. - Monitor your weight closely during this period. If you notice any significant changes or if you're not losing any more weight, we can discuss starting maintenance or adjusting the dosage. - Increase your water intake and ensure you're urinating frequently throughout the day. This can help with the side effects you've been experiencing, such as slowed digestion. - Ensure you're consuming enough calories. Your body may go into panic mode if it's not receiving enough nutrients, which can lead to weight gain. Try to have a small snack every two hours, focusing on foods high in fiber and protein. - Schedule a follow-up appointment on December 19 at 4:45 PM to discuss your progress and any concerns you may have. Please remember that it's okay to stay on a maintenance dose for a long time if it helps you maintain your weight. If you start to gain weight again at the lower dose, we can always adjust it. There's no evidence to suggest that yo-yo dosing is harmful, but each time you step up the dose, you may experience more side effects. If you have any questions or concerns in the meantime, please don't hesitate to reach out. Thank you for trusting us with your care! Not available 10/27/2024 23:00:01 12/19/2024 [id number] Any requested follow-up visits are listed below in the Plan of Care section. Go directly to the [employer] transportation director at [email or web address] to book a time. Not available 12/19/2024 19:21:18 It was a pleasur e to meet with you today! We discussed your health concerns related to your current weight loss regimen and testosterone therapy. Your Care Plan Together, we decided that you would: - Continue your current semaglutide regimen with a refill provided. - Schedule a follow-up appointment on February 20 at 11:30 am to monitor your progress and make any necessary adjustments to your treatment plan. - Consider starting a weight lifting routine to maintain muscle mass during your weight loss journey. - Plan to switch from testosterone pellets to testosterone cream after your current pellet wears off. - Request hormone level testing in a few months to determine the appropriate dosage of testosterone cream. - Contact your clinician if you have any questions, concerns, worsening or unexpected symptoms by using the patient portal. Please carefully review the care plan we have decided upon, specific information regarding your medication, and important details about your treatment detailed below. Thank you for trusting us with your care! Not available 12/19/2024 19:23:09 Reason for Referral None Reported. Problems Name Problem SNOMED Code Status Onset Date Resolution Date Notes Provider Name and Address Organization Details Recorded Time Menopausal symptom 09169619 Active 2023 Wilma West, RADHA [address], [place], [address], [facility] 4 07:51:05 Weight gain 4036245 Active 2023 [place] [address] [place], [address], [facility] 4 16:42:26 Fatigue 54915257 Active 2023 Wilma [place] [address], [address], [facility] 4 16:42:33 Body mass index 30+ - obesity 187703680 Active 2023 Wilma [place] [address], [address], [facility] 4 16:42:47 Overweight 634074517 Active 2023 Wilma [place] [address], [address], [facility] 4 15:53:21 Perimenopausal disorder 460669451 Active 2023 Sidra Lynn, RADHA [address], [address], [facility] 4 10:04:53 Obesity 036104133 Active 2023 [place], [address], [facility] 4 15:21:51 Abnormal weight gain 496371233 Active 2023 Sid[place] [address], [address], [facility] 4 16:51:51 Prediabetes 104703235 Active 2024 [place], [address], [facility] 5 17:50:51 16445441 Active 2024 [place], [address], [facility] 17:57:07 Menopause finding 536532820 Active 2024 [place] [address] [address], [place], [address], [facility] 23:01:47 Problem Notes None recorded. Medical Equipment None Reported. Allergies No known drug allergies Medications Name Sig Start Date Stop Date Status Note LastModified by Organization Details LastModified Time Bundle D: 1.5 mL/week - [facility] Inject 150 units (1.5mg) subcutan eously once weekly. 2024 active Not Available Not Available Not Avai lable Bundle D: 1.5 mL/week - [facility] Inject 150 units (1.5mg) SQ once weekly. 2023 active Not Available Not Available Not Avai lable Bundle A: 0.25 mL/week - [facility] Inject 0.25ml (0.25mg) SQ once weekly. 06/30 completed Not Available Not Available Not Available Semagluti de APS Inject 0.25ml (0.25mg) SQ once weekly. 03/24 completed Weeks 1-4. 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 Not Available Not Available Not Available Bundle C: 1.0 mL/week - [facility] Inject 100 units (1.0mg) SQ once weekly. 2023 active Not Available Not Available Not Avai lable Bundle C: 1.0 mL/week - [facility] Inject 100 units (1.0mg) SQ once weekly. 2023 active Not Available Not Available Not Avai lable Bundle B: 0.5 mL/week - [facility] Inject 50 units (0.5mg) SQ once weekly. 06/30 completed Not Available Not Available Not Available Bundle C: 1.0 mL/week - [facility] Inject 100 units (1.0mg) SQ once weekly. 2023 active Not Available Not Available Not Avai lable Bundle D: 1.5 mL/week - [facility] Inject 150 units (1.5mg) subcutan eously once weekly. 2024 active Not Available Not Available Not Avai lable promethaz ine-DM 6.25 mg-15 mg/5 mL oral syrup TAKE 5 ML BY MOUTH AT BEDTIME NEEDED FOR COUGH. active Not Available Not Available No t Available spironola ctone 100 mg tablet TAKE 1 TABLET BY MOUTH DAILY active Not Available Not Available No t Available terconazo le 0.8 % vaginal cream APPLY SMALL AMOUNT VAGINALL Y TO THE AFFECTED AREA EVERY NIGHT AT BEDTIME FOR 3 DAYS DIRECTED active Not Available Not Available No t Available estradiol 0.05 mg/24 hr semiweekl y transderm al patch Apply 1 patch twice a week by transder mal route as directed for 30 days. 06/02 completed Not Available Not Available Not Available ciproflox acin 500 mg tablet TAKE 1 TABLET BY MOUTH EVERY 12 HOURS active Not Available Not Available No t Available minoxidil 2.5 mg tablet TAKE 1 TABLET BY MOUTH DAILY active Not Available Not Available No t Available benzonata te 100 mg capsule TAKE 1 TO 2 CAPSULES BY MOUTH THREE TIMES DAILY NEEDED FOR COUGH. MAXIMUM 6 CAPSULE IN 24 HOURS FOR DAYTIME COUGH active Not Available Not Available No t Available hydrocodo ne 7.5 mg-acetam inophen 325 mg tablet TAKE 1 TABLET BY MOUTH EVERY 4 HOURS NEEDED active Not Available Not Available No t Available triamcino lone acetonide 0.1 % topical ointment APPLY EXTERNAL LY TO THE AFFECTED AREA TWICE DAILY NEEDED FOR ITCHING active Not Available Not Available No t Available clotrimaz ole-betam ethasone 1 %-0.05 % topical cream APPLY LIBERALL Y TOPICALL Y TO THE AFFECTED AREA TWICE DAILY active Not Available Not Available No t Available progester one micronize d 200 mg capsule Take 1 capsule every day by oral route for 30 days. 2024 active Not Available Not Available Not Avai lable sertralin e 25 mg tablet TAKE 1 TABLET BY MOUTH EVERY DAY active Not Available Not Available No t Available hydrocort isone 2.5 % topical cream APPLY TO SPOTS TWICE DAILY active Not Available Not Available No t Available mometason e 0.1 % topical ointment APPLY TO THE AFFECTED AREA TWICE DAILY X 1-2 WEEKS DIRECTED active Not Available Not Available No t Available methylpre dnisolone 4 mg tablets in a dose pack FOLLOW PACKAGE DIRECTIO NS 10/05 completed Not Available Not Available Not Available ondansetr on 4 mg disintegr ating tablet DISSOLVE 1 TABLET ON THE TONGUE EVERY 12 HOURS FOR 3 DAYS NEEDED FOR NAUSEA OR VOMITING active Not Available Not Available No t Available cefdinir 300 mg capsule TAKE 1 CAPSULE BY MOUTH EVERY 12 HOURS active Not Available Not Available No t Available sertralin e 50 mg tablet TAKE 1 TABLET BY MOUTH EVERY DAY active Not Available Not Available No t Available progester one micronize d 100 mg capsule Take 1 capsule every day by oral route at bedtime for 90 days. 06/02 completed Not Available Not Available Not Available bupropion HCl XL 150 mg 24 hr tablet, extended release TAKE 1 TABLET BY MOUTH EVERY DAY active Not Available Not Available No t Available sertralin e active Not Available Not Available Not Available progester one 05/05 completed Not Available Not Available Not Available testoster one 100 mg implant pellet active Not Available Not Available Not Available Lyllana 0.025 mg/24 hr transderm al patch APPLY 1 PATCH TOPICALL Y TO THE SKIN 2 TIMES A WEEK active Not Available Not Available No t Available Vitals Date Recorded Body height Body mass index (BMI) Body weight Provider Name and Address Organization Details Last Updated DateTime 09/26/2024 162.56 cm 28.7 kg/m2 [address].[address] [place] [address] [place], [address] 09/26/2024 17:53:47 Date Recorded Body weight Body mass index (BMI) Body height Provider Name and Address Organization Details Last Updated DateTime 12/19/2024 92666.41 g 26.8 kg/m2 162[place] [address] [place], [address] 12/19/2024 17:52:51 Date Recorded Body weight Body mass index (BMI) Body height Provider Name and Address Organization Details Last Updated DateTime 06/30/2024 48591.35 g 30.9 kg/m2 162[place] [address] [place], [address], [facility] 06/30/2024 18:03:55 Date Recorded Body weight Body mass index (BMI) Body height Provider Name and Address Organization Details Last Updated DateTime 08/01/2024 33771.66 g 30 kg/m2 162[place] [address] [place], [address], [facility] 08/01/2024 17:07:07 Social History None recorded. Functional Status None recorded. Mental Status None recorded. Family History Nothing Reported Notes:Family s medical history: Heart disease, Stroke, Breast cancer, Colon or rectal cancer Which family member: Mom - colon cancer, diabetes, high blood bressure Aunt, Great grandmother- breast cancer Medical History No medical history recorded. Gynecological History Statement/Question Response Date of LMP 10/08/2023 Approximate Obstetrics History GPAL:G 1 P 0 0 0 0 Past Encounters Encounter ID Performer Location Encounter Start Date Encounter Closed Date Diagnosis/Indication Diagnosis SNOMED-CT Code Diagnosis ICD10 Code Diagnosis Note [id number] Wilma West NP Main Office [address] [place] [address] 10/29/2023 15:00:40 11/03/2023 01:44:33 Menopausal symptom 73129699 N95.1 - Patient's symptoms of fatigue, mood swings, and sleep disturbanc es have improved significan tly with the current hormone pellet therapy.- Will continue the current hormone pellet therapy and monitor the patient's symptoms.- Encouraged the patient to maintain a regular sleep schedule and consider taking a cortisol sales relationship manager supplement to help manage stress and improve sleep quality. Body mass index 30+ - obesity 613616567 Z68.33 - Patient's BMI is in the obesity range, and she has been struggling with weight loss despite maintainin g a healthy diet and regular exercise.- Prescribed compounded semaglutid e, a glucagon-l yamila peptide-1 (GLP-1) receptor agonist, to aid in weight loss. This medication works by slowing gastric emptying, reversing fat storage, and reducing hunger signals.- Advised the patient to start with a low dose and gradually increase the dose as tolerated, aiming for a weight loss of about 1 pound per week.- Encouraged the patient to continue her current diet and exercise regimen, focusing on nutrient-d ense foods and maintainin g muscle mass.- Scheduled a follow-up appointmen t in one month to assess the patient's response to the medication and adjust the treatment plan as necessary. Fatigue 70636775 R53.83 - Patient's fatigue has improved with the current hormone pellet therapy.- Will continue to monitor the patient's energy levels and adjust the treatment plan as necessary. Weight gain 7301844 R63. 5 - Patient's weight gain is likely related to menopause and associated hormonal changes, including insulin resistance and increased cortisol levels due to sleep disturbanc es.- Prescribed compounded semaglutid e to aid in weight loss and help reverse the metabolic changes associated with menopause. - Encouraged the patient to continue her current diet and exercise regimen, focusing on nutrient-d ense foods and maintainin g muscle mass.- Scheduled a follow-up appointmen t in one month to assess the patient's response to the medication and adjust the treatment plan as necessary. Overweight 835696903 E66 .3 [id number] Sidra Lynn NP Main Office [address] [place] [address] 03/16/2024 13:06:19 03/22/2024 09:26:16 Perimenopausal disorder 615354479 N95.9 - Patient experienci ng symptoms consistent with perimenopa use, including absence of menstruati on for 4 months, difficulty sleeping, and anxiety.- Currently on progestero ne 100 mg PO QD and testostero ne pellet therapy, with recent addition of DHEA supplement ation.- Discussed potential benefits of initiating estradiol patch therapy to address perimenopa usal symptoms, particular ly in light of recent lab results showing low estradiol levels.- Educated on the safety and efficacy of estradiol patches compared to oral estrogen, highlighti ng the reduced risk of cardiovasc ular side effects using the patch.- HRT may have additional health benefits for bone, cardiac and brain health depending on age of initiation and years since menopause. Based on your personal and family history, you are a good candidate to try hormones as you are close in timing to your menopause and you have no history of stroke, blood clot (DVT), breast or uterine cancer.As with any drug there are some potential risks associated with HRT. Some studies have suggested that HRT may increase the risk of heart attack, stroke, and blood clots. If you develop chest pain or shortness of breath after taking HRT you should immediatel y stop and contact your provider. If you develop persistent leg cramps, headaches, cramping, nausea or breast tenderness you should discuss with your provider.- There are concerns of associated health risks with HRT including risks related to breast cancer, uterine cancer, gallbladde r disease, and dementia. Many of these concerns are related to older types of hormones that are no longer recommende d today and some of these concerns differ depending on the component of hormones (estrogen vs progestero ne) and the mode of delivery.- Plan to discontinu e testostero ne pellet therapy and focus on estradiol patch and progestero ne therapy.- Follow-up in 6 weeks to assess response to treatment and discuss further management options. Prediabetes 691405600 R7 3.03 - Recent lab work indicates pre-diabet es.- Patient has been unable to lose weight despite efforts with diet and exercise.- Discussed the importance of a carb-contr olled diet in managing insulin resistance and preventing progressio n to diabetes.- Suggested keeping carb intake under 80-100 grams per day, with a focus on high protein, fiber, and water intake.- Patient will discuss carb intake with current nutritioni st and consider making dietary changes.- Follow-up in 6 weeks to assess response to dietary changes and discuss further management options, including the possibilit y of initiating weight loss injections . Obesity 597382755 E66.9 - Patient has a BMI consistent with obesity and has been unable to lose weight despite efforts with diet and exercise.- Discussed the importance of a carb-contr olled diet in managing insulin resistance and preventing progressio n to diabetes.- Suggested keeping carb intake under 80-100 grams per day, with a focus on high protein, fiber, and water intake.- Patient will discuss carb intake with current nutritioni st and consider making dietary changes.- Follow-up in 6 weeks to assess response to dietary changes and discuss further management options, including the possibilit y of initiating weight loss injections . [id number] Sidra Lynn NP Main Office [address] [place] [address] 03/24/2024 14:05:12 03/25/2024 11:08:08 Obesity [id number] E66.9 - Patient has a BMI consistent with obesity and has been unable to lose weight despite efforts with diet and exercise.- Discussed the importance of a carb-contr olled diet in managing insulin resistance and preventing progressio n to diabetes.- Suggested keeping carb intake under 80-100 grams per day, with a focus on high protein, fiber, and water intake.- Patient will discuss carb intake with current nutritioni st and consider making dietary changes.- Follow-up in 6 weeks to assess response to dietary changes and discuss further management options, including the possibilit y of initiating weight loss injections . Perimenopa usal disorder [id number] N95.9 - Patient feels that she is doing well with her hormonal replacemen t therapy and is currently on estradiol 0.05 milligrams , semi-weekl y transderma l patch.- Discussed weight gain during perimenopa use and how insulin resistance contribute s to this.- Based on recent lab work, she's also concerned about prediabete s, states that her lipid levels were at the high end of normal and no medication has been recommende d for this, but she does not want this to get any higher.- In the past, she could exercise and diet and lose weight very easily. But since she has turned 40 years old, this has become increasing ly difficult. Abnormal weight gain 161 [id number] R63.5 - Patient has experience d significan t weight gain over the past few years, currently weighing around 200 pounds, with a previous weight of 190.6.- Despite trying different diet plans and exercise, she has been unable to lose weight.- Discussed the use of GLP-1 medication s, including Wegovy and Zepbound, for weight loss. Patient was denied coverage for Wegovy by her insurance as she is not diabetic.- Patient is interested in compound semaglutid e. Discussed side effects associated with GLP-1s, including nausea, heartburn, constipati on, and diarrhea, and ways to manage these side effects.- Discussed the mechanism of action for GLP-1s, including decreased mind chatter surroundin g food, slowing of the digestive tract to allow you to feel riddle, quicker, and longer, and the regulation of insulin production by the pancreas.- Discussed contraindi cations to use of GLP-1s, including history of medullary thyroid cancer, multiple endocrine neoplasia, acute kidney injury, history of pancreatit is, and history of gastropare sis. Patient denies any of these issues.- Discussed the cost of compound semaglutid e and how she would obtain her supply. She will be watching for an email from our compound pharmacy with fabienne squires on how to sign up for this.- Follow-up office visit scheduled for May 05 to allow some time to start the injections and to see how she will feel so that we will know if we need to increase the dose after being on it a month. She will reach out through the portal with further questions or concerns. [id number] Sidra Lynn NP Main Office [address] [place] [address] 05/05/2024 16:03:22 05/09/2024 10:57:13 Obese class I [id number] E66.9 - Patient has been on semaglutid e therapy, currently on 0.25 mg dose.- Patient reports mild nausea and constipati on, which are being managed with increased water intake, probiotics , and additional fiber.- Next dose of semaglutid e will be increased to 0.5 mg.- Educated patient on the importance of monitoring for side effects and maintainin g hydration and fiber intake.- Follow-up scheduled for June 02 to assess tolerance and effectiven ess of the increased dose. Menopause finding [id number] N95.1 - Patient reports increased emotional lability and abdominal cramping potentiall y related to estradiol patch.- Current estradiol patch dose to be decreased to 0.025 mg.- Patient is also on 100 mg of progestero ne at night, which will be increased to 200 mg to aid with sleep difficulti es.- New prescripti ons for lower dose estradiol patches and increased dose of progestero ne to be sent.- Patient educated on potential side effects and advised to monitor symptoms.- Follow-up scheduled for June 02 to reassess symptoms and adjust treatment as necessary. Difficulty sleeping [id number] G47.9 - Patient reports difficulty sleeping, potentiall y related to perimenopa usal symptoms.- Current progestero ne dose of 100 mg to be increased to 200 mg at night to improve sleep quality.- Patient is in therapy to manage stress, which may also be contributi ng to sleep difficulti es.- New prescripti on for 200 mg of progestero ne to be sent.- Follow-up scheduled for June 02 to evaluate effectiven ess of increased progestero ne dose on sleep. [id number] Sidra Lynn NP Main Office [address] [place] [address] 06/02/2024 17:02:51 06/07/2024 04:28:09 Abnormal weight gain [id number] R63.5 - Patient has experience d significan t weight loss, decreasing from 201 lbs to 184 lbs since starting semaglutid e.- Semaglutid e 0.5 mg has been effective in reducing weight, with the patient reporting improved eating habits and reduced appetite.- Educated patient on the importance of tracking bowel movements to avoid constipati on, a common side effect of semaglutid e.- Ordered an increase in semaglutid e dosage to 1 mg to continue weight loss progressio n.- Prescripti on for semaglutid e 1 mg has been sent to the pharmacy.- Follow-up appointmen t scheduled for June 30 at 5 PM to monitor weight and response to increased dosage. [facility] Semaglutid e [email or web address] Here are the next steps regarding your [facility] prescripti on: The day after your visit you will receive an email from [facility] to purchase your medication s. We recommend adding this email to your contact list to prevent it from being filtered by spam/junk filters. If you have any questions about how to purchase your order, please use the [employer] email address. Please ensure you click the link in the email to confirm the products you'd like. Once you have verified you'd like to receive this product from that email and completed the purchase, you will receive a tracking number via [employer] and your product is on its way to you! If you have any questions at any time, please reach out to us here at [facility], we are happy to help. Perimenopa usal disorder [id number] N95.9 - Patient reports adverse effects from estradiol patch, including weepiness and cramps, even at a lower dose.- Discontinu ed estradiol patch due to adverse effects and patient reports feeling better off the medication .- Patient is currently on progestero ne 200 mg, which has improved sleep.- Patient's testostero ne levels are at zero; plans to receive a testostero ne pellet at [facility] in [place], [place], with a target dose of 80 mg.- Educated patient on the potential benefits and side effects of testostero ne therapy, including improved energy levels.- Patient agrees with the treatment plan and understand s the importance of monitoring symptoms and hormone levels. Fatigue [id number] R53.83 - Patient reports severe fatigue, sleeping 12 hours a night but still feeling tired.- Fatigue is likely related to low testostero ne levels; patient to receive a testostero ne pellet at [facility].- Educated patient on the role of testostero ne in energy levels and overall well-being .- Patient to continue current regimen of progestero ne 200 mg and semaglutid e.- Follow-up in one month to reassess energy levels and overall condition. [id number] Sidra Lynn NP Main Office [address] [place] [address] 06/30/2024 17:02:30 09/22/2024 17:46:24 Abnormal weight gain [id number] R63.5 [facility] Semaglutid e [email or web address] Here are the next steps [facility] prescript[facility] on: The day after your visit you will receive an email from [facility] to purchase your medication s. We recommend adding this email to your contact list to prevent it from being filtered by spam/junk filters. If you have any questions about how to purchase your order, please use the [employer] email address. Please ensure you click the link in the email to confirm the products you'd like. Once you have verified you'd like to receive this product from that email and completed the purchase, you will receive a tracking number via [employer] and your product is on its way to you! If you have any questions at any time, please reach out to us here at [facility], we are happy to help. Obesity [id number] E66.9 - Patient has experience d significan t weight loss, currently down 20 pounds from a previous weight of 201 lbs to 180.2 lbs.- Patient reports a decrease in pant size and overall improvemen t in physical health.- Current medication : [facility] Semaglutid e 1 mg, which the patient is tolerating well.- She would like to stay on current dose. Prescripti on has been sent to [facility] with a refill included.- Patient educated on the importance of continued weight monitoring and adherence to the current medication regimen.- Follow-up appointmen t scheduled for August 01 at 4:00 PM to reassess weight and consider potential dosage increase if weight loss plateaus. [id number] Sidra Lynn NP Main Office [address] [place] [address] 08/01/2024 16:05:28 08/17/2024 14:55:18 Overweight [id number] E66.3 - Patient's weight is currently 175.2 lbs, down from an initial weight of 201 lbs.- Discussed weight management strategies , including the potential adjustment of fiber supplement dosage.- Patient is considerin g increasing the dose from 1 to 1.5 if weight loss plateaus.- Refilled current dose and prescribed higher dose to provide flexibilit y in management .- Patient advised to weigh in on or Thursday to decide on the appropriat e dose.- Follow-up appointmen t scheduled for September 26 at 4:45 PM to reassess weight and overall progress. Constipation [id number] K5 9.00 - Patient reported decreased bowel movements, potentiall y due to running out of fiber supplement s.- Advised patient to resume fiber supplement s as soon as they arrive.- Patient has initiated a probiotic to aid in bowel regularity .- Educated patient on the importance of maintainin g adequate fiber intake and monitoring bowel habits.- Patient understand s and agrees with the treatment plan. Abnormal weight gain 161 698972 R63.5 [facility] Semaglutid e [email or web address] Here are the next steps regarding your [facility] prescripti on: The day after your visit you will receive an email from [facility] to purchase your medication s. We recommend adding this email to your contact list to prevent it from being filtered by spam/junk filters. If you have any questions about how to purchase your order, please use the [facility] email address. Please ensure you click the link in the email to confirm the products you'd like. Once you have verified you'd like to receive this product from that email and completed the purchase, you will receive a tracking number via SMS and your product is on its way to you! If you have any questions at any time, please reach out to us here at [facility], we are happy to help. [id number] Sidra Lynn NP Main Office [address] [place] [address] 09/26/2024 17:02:57 10/12/2024 19:52:13 Perimenopausal disorder [id number] N95.9 - Patient is currently treated with an estradiol patch and progestero ne pill.- Tolerates current hormone therapy well.- Continue current regimen of estradiol patch and progestero ne pill. Ensured patient has enough refills. Obesity [id number] E66.9 - Patient has been on compound semaglutid e since March 2024.- Current dose of compound semaglutid e is 1.5 mg weekly.Jus t refilled on 09/20/23.- Effective in weight loss; weight reduced from 194 lbs to 167 lbs.- No concern for side effects.- Continue current dose of compound semaglutid e 1.5 mg weekly. [id number] Sidra Lynn NP Main Office [address] [place] [address] 10/24/2024 17:02:35 11/02/2024 10:39:24 Overweight [id number] E66.3 - Patient is currently on a 1.5 mg dose of semaglutid e for weight management .- Discussed concerns about weight gain and side effects, including slowed digestion and a recent weight increase of four pounds.- Advised patient to monitor weight and hydration status, and to weigh herself again to assess any changes.- Educated patient on the possibilit y of yo-yo dosing and the lack of evidence suggesting harm from this practice.- Recommende d continuing the 1.5 mg dose for the next 8 weeks to achieve a target weight in the 150s.- Emphasized the importance of adequate hydration and frequent small meals to avoid putting the body in panic mode.- Patient agreed to the plan and will follow up in 8 weeks.- Next follow-up appointmen t scheduled for December 19 at 4:45 PM. Constipation [id number] K5 9.00 - Patient reports slowed digestion as a side effect of the current medication dose.- Advised increasing water intake and incorporat ing high-fiber foods into the diet.- Recommende d small, frequent meals to improve digestion. - Patient instructed to monitor bowel movements and report any significan t changes or persistent issues. Menopause finding 068953 006 N95.1 - Continue estradiol patch and progestero ne as prescribed . Abnormal weight gain 161 415245 R63.5 [facility] Semaglutid e [email or web address] Here are the next steps regarding your [facility] prescripti on: The day after your visit you will receive an email from [facility] to purchase your medication s. We recommend adding this email to your contact list to prevent it from being filtered by spam/junk filters. If you have any questions about how to purchase your order, please use the [employer] email address. Please ensure you click the link in the email to confirm the products you'd like. Once you have verified you'd like to receive this product from that email and completed the purchase, you will receive a tracking number via [employer] and your product is on its way to you! If you have any questions at any time, please reach out to us here at [facility], we are happy to help. [id number] Sidra Lynn NP Main Office [address] [place] [address] 12/19/2024 17:03:11 12/20/2024 04:08:34 Overweight [id number] E66.3 - Improving with continued weight loss; patient reports current weight of 156 lbs, targeting 150 lbs.- Refilled semaglutid e injection weekly as previously directed.- Reinforced dietary measures with emphasis on adequate protein intake and hydration. - Advised initiation of resistance training to maintain muscle mass and prevent losses.- Scheduled follow-up in clinic on February 20 at 11:30 for ongoing weight management evaluation . Menopausal symptom 93978 002 N95.1 - Patient expresses dissatisfa ction with current testostero ne pellet therapy, noting excessive dosing and hair shedding.- Discussed potential transition to topical testostero ne cream; patient declined immediate initiation .- Advised to undergo serum hormone panel in a few months before starting topical therapy. Menopause finding 473052 006 N95.1 - Continue estradiol patch and progestero ne as prescribed . Health Concerns Section Related Observation LastModified by Organization Detai ls LastModified Time None Recorded Concern Status LastModified by Organization Details LastModified Time None Recorded Advance Directives Directive None Recorded Payers Insurance Date Sequence Insurance Name Policy Number Policy Harmon Covered Member ID Harmon Member ID Guarantor Name 01/19/2025 1 [facility] [id number] Sameera Arceo [id number] Sameera Arceo Notes Date Note Type Note Provider Name and Address Organization Details Recorded Time 06/30/2024 text/html Patient is a 44 year old female presenting for a follow-up visit regarding weight management with the use of Semaglutide. Weight Management:- Patient reports a significant weight loss of 20 pounds since the last visit.- She has also gone down a pant size.- She is currently on Compound semaglutide 1mg weekly and wishes to continue with the same dosage for another month as she is still experiencing weight loss.- She tolerates it well with no side effects.- She is open to increasing the dosage if her weight loss begins to taper off.- Her current weight is 180.2 pounds, down from 201 pounds in the summer.- She feels validated that her weight issues were due to insulin resistance problems.- She reports that she is eating the same foods as before, but not as much.- She believes her body did not know how to break down the healthy foods she was consuming prior to starting the medication. Virtual Visit Attestation Modality: Video Provider Location: Home Patient Location: Home Patient State: [place] [{{ * }}]I have obtained consent from the patient for use [place] [address] [place], [address], [facility] 07/04/2024 03:33:07 08/01/2024 text/html Patient is a 44 year old female presenting for a follow-up visit to discuss weight management progress and medication adjustments. Weight Management:- Patient reports overall good progress in the past month, with a significant weight loss from 201 lbs to 175.2 lbs.- However, she mentions not losing any weight in the last week, which she attributes to a decrease in bowel movements due to running out of her fiber supplement.- She is planning to start a probiotic supplement to aid in digestion and potentially weight loss.- She is considering increasing her current medication dosage from 1 to 1.5, depending on her weight loss progress in the coming week.- She reports feeling comfortable with her current weight and does not feel the need to lose a significant amount more. Her goal is to lose 10 to 15 more pounds and then focus on maintaining her weight and lifting exercises.- She plans to weigh herself again later in the week to decide on the medication dosage.- She is satisfied with her progress, noting that her clothes are fitting better and she feels good in her skin.- She mentions a goal weight in the high 160s to low 160s, and is content with her current progress towards this goal.- She plans to order new pants once she reaches her goal weight in the 160s.- She is considering skipping over the holidays and checking in again in September. 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 Weight Management:- Patient reports overall good progress in the past month, with a significant weight loss from 201 lbs to 175.2 lbs.- However, she mentions not losing any weight in the last week, which she attributes to a decrease in bowel movements due to running out of her fiber supplement.- She is planning to start a probiotic supplement to aid in digestion and potentially weight loss.- She is considering increasing her current medication dosage from 1 to 1.5, depending on her weight loss progress in the coming week.- She reports feeling comfortable with her current weight and does not feel the need to lose a significant amount more. Her goal is to lose 10 to 15 more pounds and then focus on maintaining her weight and lifting exercises.- She plans to weigh herself again later in the week to decide on the medication dosage.- She is satisfied with her progress, noting that her clothes are fitting better and she feels good in her skin.- She mentions a goal weight in the high 160s to low 160s, and is content with her current progress towards this goal.- She plans to order new pants once she reaches her goal weight in the 160s.- She is considering skipping over the holidays and checking in again in September. 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 Perimenopausal Disorder:- Patient is currently on an estradiol patch and progesterone pill for her perimenopausal symptoms.- She reports tolerating this treatment well. Obesity:- Patient has been diagnosed with obesity and pre-diabetes.- She is currently on compound semaglutide for weight management, which was started in March of 2024.- The dosage of compound semaglutide is 1.5 milligrams weekly.- This treatment has been effective in her weight loss goals.- She has been able to reduce her weight from 194 pounds to 167 pounds.- Despite this progress, she remains in the overweight category. PMHx:- Perimenopausal disorder- Pre-diabetes- Obesity Current Meds:- Compound semaglutide (1.5 milligrams weekly)- Estradiol patch- Progesterone pill Virtual Visit AttestationModality: VideoProvider Location: Home Patient Location: Home Patient State: [place] [address] [place], [address], [employer] 10/10/2024 17:32:22 10/24/2024 text/html Patient is a 44 year old female presenting with concerns about weight gain, digestive issues, and anxiety related to her current medication regimen. Weight Management:- Patient reports a recent weight gain of four pounds in one week, which she attributes to possible dehydration, high sodium intake, or slowed digestion.- She is currently at a weight of 165 pounds and expresses a desire to reach the 150s.- She is apprehensive about transitioning to a maintenance dose of her current medication due to fear of weight regain.- She plans to weigh herself again to monitor any changes in her weight. Digestive Issues:- Patient reports a significant slowing down of her digestion since increasing her medication dosage to 1.5.- She has a history of constipation and has worked hard to regulate her bowel movements, expressing concern that increasing her medication dosage might disrupt her digestive system. Medication Concerns:- Patient is currently on a medication regimen, with a dosage of 1.5, which she believes is causing her digestive issues and weight gain.- She is apprehensive about increasing her dosage to 2 due to potential side effects, particularly impacting her digestion.- She is considering transitioning to a maintenance dose if she does not lose any more weight on her current dosage.- She is open to staying on a maintenance dose for an extended period if it helps maintain her weight.- She expresses fear about the process of transitioning to a lower dose and the possibility of weight regain. Anxiety:- Patient expresses significant anxiety about her weight management, the effects of her current medication, and the potential transition to a maintenance dose.- She is particularly concerned about the possibility of regaining weight once she transitions to a lower dose of her medication. Diet:- Patient has made dietary changes to include more fiber and protein in her meals.- She plans to increase her water intake and eat small amounts of food every two hours to help manage her weight and digestion. Next Steps:- Patient plans to stay on her current medication dosage of 1.5 for the next eight weeks to see if she can reach her goal weight in the 150s.- She plans to monitor her weight closely during this period.- She is open to adjusting her medication dosage based on her weight loss progress and side effects. Virtual Visit Attestation Modality: Video Provider Location: Home Patient Location: Home Patient [place]: [place] [address] [place], [address], [facility] 11/13/2024 20:55:22 12/19/2024 text/html The patient is a 44-year-old female presenting for follow-up on weight management and testosterone therapy. Weight Management- Current weight: 156 lbs- Goal weight: 150 lbs- Reports feeling good and plans to continue current regimen until reaching goal weight, after which she will transition to maintenance.- Currently on compounded semaglutide, which has been effective for weight loss.- Prioritizing protein intake and hydration.- Recently resumed boxing but sustained an ankle injury, now fully healed; plans to start weight lifting to prevent muscle mass loss. Testosterone Therapy- Currently on testosterone pellet therapy but expresses dissatisfaction with dosing, stating, I feel like they keep overdosing me with the pellet. - Reports hair loss, attributing it to the testosterone pellets.- Interested in switching to testosterone cream for better dosage control and cost-effectiveness.- Plans to have hormone levels checked in a few months before making the switch to cream. 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 Virtual Visit AttestationModality: VideoProvider Location: Home Patient Location: Home Patient State: [place] [address] [place], [address], [facility] [employer] 12/22/2024 12:13:29 OBGyn Episode Ob Episode Information Episode Created Date Number of Fetuses Patient Bloodtype Patient rh Status Prepregnancy Weight lbs Domestic Partner Domestic Partner Phone Father Name Carbonizer Status 10/24/19 25 1 OPEN Fetus Data First Name Last Name Admitted to NICU Weight (g) Sex Living Outcome Pediatric Complications Fetus ID Race Codes Race Delivery Type [id number] Shaun Calculation Initial Shaun Date Initial Exam Date Initial Exam Provider Initial Ultrasound Date Last Menstrual Period Date Ultra Sound Weeks Gestation 10/24/2024 0 Eighteen To Twenty Week Shaun Update Ultra Sound Date Fundal Height At Umbil Quickening Date Ultra Sound Latest Weeks Gestation Final Shaun Confirmed By Final Shaun Confirmed Date Final Shaun Date Ultra Sound Latest Days Gestation 0 0 Pre-eliseo Flowsheet Flowsheet Date 10/24/2024 Torres Score Blood Edema Fundus Height Fundus Units Glucose Ketones Leukocytes Nitrite Labor Signs Protein Cervic Dilation Cervic Effacement Cervic Station Type Weight in lbs Pre/Post Dialysis Refused BP Diastolic BP Location Tested BP Systolic BP Type Fetus Heart Rate Present Fetus Movement Comments Flowsheet Date 12/19/2024 Torres Score Blood Edema Fundus Height Fundus Units Glucose Ketones Leukocytes Nitrite Labor Signs Protein Cervic Dilation Cervic Effacement Cervic Station Type Weight in lbs Pre/Post Dialysis Refused Weight [id number] BP Diastolic BP Location Tested BP Systolic BP Type Fetus Heart Rate Present Fetus Movement Comments Menstrual History Last Menstrual Date Menses Monthly On Bcp Conception Prior Menses Frequency Hcg Plus Date Menarche Onset Age Delivery Information Delivery Date Delivery Type Labor Anesthesia Weeks Gestation Incision Type Labor Labor Length Hrs Delivered By Post Complications Tubal Sterilization Discharge Date Comments Discharge Information Feeding Method Contraceptive Method Maternal HG B and HCT Levels
== END 2025-01-23 15:13 | disposition home or self-care (01) ==
LOC: ANHIMG 15:14
PROVIDERS: PCP Physician Assistant; Visit Provider Obstetrics & Gynecology
DX: Z12.31 Encounter for screening mammogram for malignant neoplasm of breast (principal)
CPT/HCPCS: 77063; 77067

== ENCOUNTER 2025-05-21 08:24 | Emergency (ER) | payer OTHER, SELFPAY ==
--- OUTSIDE RECORDS SUMMARY | 2017-08-28 12:28 | XMS_ITS | Continuity of Care Document ---
Author Organization [facility] Address [address] [place] [address] Phone Care Team Providers Care Residential Sales Representative Name Role Phone Rg Walters MD Unavailable Unavailable Medications Medication Instructions Dosage Effective Dates (start - stop) Status Comments omeprazole 20 mg capsule,delayed release take 1 capsule by oral route every day 30min before breakfast - Active Advance Directives Directive Yes / No Effective Date File Name No Information Encounters Encounter Description Practice Location Reason(s) For Visit Diagnoses Date Provider Providers Copied on Encounter [facility], [address], [place], [place], [id number], tel:[phone] [facility] No Information Romeo Diez. [address] [place] [address], [id number], . tel:[phone] [facility], [address], [place], [id number], tel:[phone] [facility] No Information Romeo Diez. [address] [place] [address], [address], [id number], . tel:[phone] Family History Family Member Type Diagnosis Age At Onset No Information Payers Payer name Insurance type Covered alliance party ID Authoriza tion(s) [facility] [id number] [facility] INACTIVE OUT OF STATE [id number] Social History Type Description Quantity Date Captured Comments Sex Female Smoking Status No Information Chief Complaint And Reason For Visit No Information Reason For Referral Reason For Referral No Information History Of Present Illness Encounter Date Complaint History Of Prese nt Illness No Information Functional Status Date Functional Assessmen t No Information Instructions Date Instruction Additional Infor mation No Information Assessments Type Assessment Date No Information Patient Care Teams Name Effective Dates (start - stop) Status Members No Information
--- OUTSIDE RECORDS SUMMARY | 2025-05-21 08:27 | XMS_ITS | Clinical Summary ---
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 This disclosure is being madepursuant to the Care Everywhere program and may not contain all information available regarding this patient. 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 Gender Identity Not on file Sexual Orientation Not on file Last Filed Vital Signs Vital Sign Reading Time Taken Comments Blood Pressure 125/71 09/23/2012 9:22 AM CERTIFIED INDOOR ENVIRONMENTALIST Pulse 95 09/23/2012 9:22 AM CERTIFIED INDOOR ENVIRONMENTALIST Temperature - - Respiratory Rate 20 09/23/2012 9:22 AM CERTIFIED INDOOR ENVIRONMENTALIST Oxygen Saturation - - Inhaled Oxygen Concentration - - Weight 72.1 kg (159 lb) 09/23/2012 9:22 AM CERTIFIED INDOOR ENVIRONMENTALIST Height 162.6 cm (5' 4) 07/22/2012 1:42 PM CERTIFIED INDOOR ENVIRONMENTALIST Body Mass Index 27.29 07/22/2012 1:42 PM CERTIFIED INDOOR ENVIRONMENTALIST Plan of Treatment Health Maintenance Due Date Last Done Comments COLOGUARD (AGES 45-75) - COL ON CA SCREENING 1980 COLON MONITORING 1980 COLONOSCOPY - COLON CA SCREENING 1980 CT COLONOGRAPHY - COLON CA SCREENING 1980 Colorectal Cancer Screening 1980 FIT - COLON CA SCREENING 1980 FLEX SIG - COLON CA SCREENING 1980 LIPID TESTING 1980 MAMMOGRAM 1980 HIV SCREENING 1995 HEPATITIS C SCREENING 02/26/1998 DTAP/TDAP/TD VACCINES (1 - Tdap) 1999 HEPATITIS B VACCINE (1 of 3 - 19+ 3-dose series) 1999 HPV VACCINE (1 - 3-dose SCDM series) 2007 DEPRESSION SCREENING 09/14/2024 COVID-19 VACCINE (1 - 2023-2 5 season) 2025 INFLUENZA VACCINE (#1) 2025 ZOSTER VACCINE (1 of 2) 2030 [...] patient's age to complete this topic Insurance [facility] Member Subscriber Plan / Payer (Ef fective for All Dates) Name:Sameera Monae Relation to Subscriber:Spouse Name:MARY MONAES Franklyn Subscriber ID:Not on file Payer ID:[id number] (IC) Type:[facility] Address: [address]
--- OUTSIDE RECORDS SUMMARY | 2025-05-21 08:27 | XMS_ITS | Encounter Summary ---
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 Name Role Phone Unavailable Primary Care Provider Unavailabl e Encounter Details Date Type Department Care Team (Late st Contact Info) Description 12/08/2018 Lab Requisition [facility] [address] [place] [id number] [phone] Galina Bejarano MD [address] [facility] [address] [place] [address] Social History Tobacco Use Types Packs/Day Years Used Date Smoking Tobacco: Never Smokeless Tobacco: Never Alcohol Use Standard Drinks/Week Comments No 0 (1 standard drink = 0.6 oz pur e alcohol) Comments No Sex and Gender Information Value Date Recorded Sex Assigned at Not on file 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 Gender Identity Not on file Sexual Orientation Not on file documented as of this encounter Plan of Treatment Not on file documented as of this encounter Procedures Procedure Name Priority Date/Time Associated Diagnosis Comments DERMATOPATHOLOGY Routine 12/07/2018 12:0 0 AM CDT documented in this encounter Results * DERMATOPATHOLOGY (12/07/2018 12:00 AM CDT) Case Report Dermatopathology Report Case: [id number] Authorizing Provider: Galina Bejarano MD Collected: 12/07/2018 12:00 AM Pathologist: Paris Stearns MD Received: 12/08/2018 09:10 AM Specimen: Skin, right chest 12:44 PM CDT DERMATOPATHOLOGY LABORATORY Final Diagnosis Specimen A. SKIN, right chest: COMPOUND MELANOCYTIC NEVUS, IRRITATED (D22.5) 12:44 PM CDT DERMATOPATHOLOGY LABORATORY at 1244 CDT Clinical History R/O nevus, growing, irritated. 12:44 [...] characteristic determined by the Dermatopathology Laboratory at [facility], directed by Dr. Diana Shukla. These tests need not be, and therefore are not, approved by the [place] Food and Drug Administration. The tests are used for clinical purposes. Billing Codes Specimen Charges Stain Charges 49817 1 12:44 PM CDT DERMATOPATHOLOGY LABORATORY Embedded Images 12:44 PM CDT DERMATOPATHOLOGY LABORATORY Pathology/Cytolog y TISSUE SPECIMEN FROM SKIN / Unknown 12/07/2018 12/08/2018 9:10 AM CDT Galina Bejarano MD LAB - PATHOLOGY/CYTOLOGY OR DERABLES Final Result DERMATOPATHOLOGY LABORATORY [facility] - Department of Dermatology [address] [place] [address], [address] [place] [address], [facility] [phone] documented in this encounter Visit Diagnoses Not on filedocumented in this encounter
[2025-05-21 08:32] VITALS: BP 96/65; PULSE 72; RESP 18; TEMP 36.2; O2SAT 98
--- NOTE | 2025-05-21 08:47 | ED.SKABFB ---
HPI - Skin/Abscess/Foreign Bdy General Chief complaint: Skin/Abscess/Foreign Body Stated complaint: Tick Bite Time Seen by Provider: 05/21/25 08:47 Source: patient Mode of arrival: ambulatory Limitations: no limitations History of Present Illness HPI narrative: 45 yo F presents with tick bite to R hip. Went hiking thursday. Found tick to R hip 2 days later and removed it. Red and swollen. Concerned for infection. Afebrile. All systems reviewed and negative except as noted above. Related Data Home Medications ?Medication ?Instructions ?Recorded ?Confirmed ?Last Taken ?Type Testosterone Pellet 1 pellet DIRECTED 07/18/24 04/27/25 Unknown History progesterone micronized 200 mg 200 mg DIRECTED 07/18/24 04/27/25 Unknown History capsule sertraline 50 mg tablet 50 mg PO DAILY 07/18/24 05/21/25 Unknown History semaglutide (weight loss) 1.7 1.7 mg subcut WEEKLY 08/15/24 05/21/25 Unknown History mg/0.75 mL subcutaneous pen injector minoxidil 2.5 mg tablet 2.5 mg PO DAILY 04/27/25 05/21/25 Unknown History spironolactone 100 mg tablet 100 mg PO DAILY 04/27/25 05/21/25 Unknown History Allergies Allergy/AdvReac Type Severity Reaction Status Date / Time No Known Allergies Allergy Unknown Verified 05/21/25 08:32 [facility] Past Medical History Medical History Dilatation, esophagus, congenital Family history of colon cancer in mother Anxiety GERD (gastroesophageal reflux disease) IBS (irritable bowel syndrome) No significant past medical history Surgical History Surgical History H/O sinus surgery History of endometrial ablation Family History Family History Mother Hypertension Family history of elevated blood lipids Family history of diabetes mellitus in first degree relative Father Patient's father is in good health Sibling Patient's sister is in good health Grandparent Family history of malignant neoplasm of breast Family history of malignant neoplasm of male breast Social History Social History Smoking status: Never smoker Alcohol intake: current Drinks per week: 2 Alcohol use details: social Substance use: current Substance use type: marijuana Last use: occasional Living arrangements: with family Gender identity (if verbalized by the patient): Female Sexual Orientation (if Verbalized by the Patient): Straight or Heterosexual Spiritual care concerns: No Comments At time of signature, agree with nursing past medical, surgical, social and family history. There is no relevant family history pertinent to the presenting complaint. Exam Narrative: GENERAL: This is a well-nourished, well-developed patient, in no apparent distress. HEAD: normocephalic, atraumatic. EYES: PERRL. Sclera clear/white. Vision is grossly intact. EARS: External ears normal NOSE: External nose normal NECK: Neck supple, non-tender without lymphadenopathy, masses or thyromegaly. CARDIOVASCULAR: Regular rate and rhythm without murmurs, gallops, or rubs. RESPIRATORY: Clear to auscultation. Breath sounds equal bilaterally. No wheezes, rales, or rhonchi. SKIN: warm, Dry, intact, good texture and turgor. scabbed papule to R hip, lateral aspect with surrounding erythema. mild warmth. no fluctuance concerning for abscess. NEURO: awake, alert, and oriented to person, place and time. There were no obvious focal neurologic abnormalities. EXTREMITIES: No joint tenderness, effusion, or edema noted. Course Course Level of Care: Express Care Visit Vital Signs Vital signs: Vital Signs Temperature 36.2 C L 05/21/25 08:32 Pulse Rate 72 05/21/25 08:32 Respiratory Rate 18 05/21/25 08:32 Blood Pressure 96/65 L 05/21/25 08:32 Pulse Oximetry 98 05/21/25 08:32 Oxygen Delivery Room Air 05/21/25 08:32 Temperature 36.2 C L 05/21/25 08:32 Pulse Rate 72 05/21/25 08:32 Respiratory Rate 18 05/21/25 08:32 Blood Pressure 96/65 L 05/21/25 08:32 Pulse Oximetry 98 05/21/25 08:32 Oxygen Delivery Room Air 05/21/25 08:32 Reviewed MDM - Skin/Abscess/Foreign Bdy MDM Narrative Medical decision making narrative: tick bite to right hip for 48 hours. Erythematous, swollen with mild warmth. Will treat with doxycycline. Patient agrees with plan of care. Patient is well-appearing, nontoxic. Differential Diagnosis Differential diagnosis: Likely abscess of skin or subcutaneous tissue, cellulitis and insect bites Discharge Plan Discharge Clinical Impression: Tick bite Patient Disposition: Home Condition: Stable Instructions: Antibiotic Form, Tick Bite (ED) Additional Instructions: Take antibiotic as prescribed until gone. Take with full glass of water. Do not take right before bedtime. Follow-up with your primary care physician as needed. Patient Language: Tajik Prescriptions: New doxycycline hyclate 100 mg capsule 100 mg PO BID 7 Days Qty: 14 0RF No Action sertraline 50 mg tablet 50 mg PO DAILY progesterone micronized 200 mg capsule 200 mg DIRECTED Testosterone Pellet 1 pellet DIRECTED spironolactone 100 mg tablet 100 mg PO DAILY minoxidil 2.5 mg tablet 2.5 mg PO DAILY semaglutide (weight loss) 1.7 mg/0.75 mL Pen Injector 1.7 mg SUBCUT WEEKLY Patient Comments: Thursday's Rx Instructions: administer weeks 13 through 16 of therapy Follow-up/Referrals: Benoit,KATHERINE Brush [Primary Care Provider, Unknown] Time of Disposition: 08:51
== END 2025-05-21 08:53 | disposition home or self-care (01) ==
PROVIDERS: Emergency Provider Nurse Practitioner Family; PCP Physician Assistant
DX: S70.261A Insect bite (nonvenomous), right hip, initial encounter (principal); W57.XXXA Bitten or stung by nonvenomous insect and other nonvenomous arthropods, initial encounter; K21.9 Gastro-esophageal reflux disease without esophagitis; F41.9 Anxiety disorder, unspecified
CPT/HCPCS: 99213; G0463

== ENCOUNTER 2025-07-20 07:23 | Emergency (ER) | payer OTHER, SELFPAY ==
--- NOTE | ~2025-07-20 | CT_ITS ---
Sameera Arceo EXAMINATION: CT abdomen pelvis w con COMPARISON: None HISTORY: epigastric/RUQ (some LUQ) abd pain;change in stool TECHNIQUE: Axial images were obtained through the abdomen, pelvis post administration of IV contrast. Oral contrast was also administered. Coronal reconstruction images were obtained from the axial views. CT scan performed using dose optimization techniques including the following automated exposure control; adjustment of mA and/or kV; use of iterative reconstruction technique. Automatic exposure control was used to reduce radiation dose. Permanent radiation dose record is archived to PACS. FINDINGS: CT abdomen: LUNG BASES: The lung bases are clear. The visualized portions of the heart and pericardium are unremarkable. LIVER: Unremarkable, liver contours intact, no lesions. SPLEEN: Unremarkable. KIDNEYS: Right Kidney: Unremarkable. No calculi. No hydronephrosis. Left Kidney: Unremarkable. No calculi. No hydronephrosis ADRENAL GLANDS: Unremarkable. PANCREAS: Unremarkable. GALLBLADDER/BILIARY: Unremarkable. No biliary dilatation. STOMACH AND ESOPHAGUS: Small hiatal hernia. Thickening of the esophagus may represent mild esophagitis. BOWEL/MESENTERY: Moderate fecal content, no colitis or diverticulitis. Appendix normal. Mesentery normal. No thickened or dilated loops of small bowel. ADENOPATHY/RETROPERITONEUM: No lymphadenopathy. AORTA/VASCULATURE: Normal caliber aorta. FREE FLUID OR FREE AIR: None. CT pelvis: SOLID ORGANS/REPRODUCTIVE: Unremarkable. BLADDER: Within normal limits. OSSEOUS STRUCTURES: No acute osseous abnormality.No suspicious lesions. OVERLYING SOFT TISSUES: Unremarkable. IMPRESSION: 1. No acute intra-abdominal process. Mild esophagitis suspected. Upper GI or endoscopy may be of benefit. Reviewed, dictated and finalized at location P. B CONSULTANT IMPRESSION: 1. No acute intra-abdominal process. Mild esophagitis suspected. Upper GI or en doscopy may be of benefit.
[2025-07-20 07:28] VITALS: BP 134/81; PULSE 72; RESP 14; TEMP 37.1; O2SAT 100
--- NOTE | 2025-07-20 07:32 | ECG_ITS ---
Test Date: 2025-07-20 07:43:09 Measurements Intervals [place] Rate: 69 P: 50 MS: 119 QRS: 31 QRSD: 90 T: 39 QT: 401 QTc: 432 Interpretive Statements SINUS RHYTHM LOW QRS VOLTAGE IN PRECORDIAL LEADS [QRS DEFLECTION < 1.0 mV IN CHEST LEADS] No previous ECG available for comparison Electronically Signed On 07-20-2025 09:02:11 AGRICULTURAL SERVICES DIRECTOR by Yasmany Andersen M.D.
[2025-07-20 07:47] LABS: Hematocrit 40.7 % (37.0-47.0); Hemoglobin 13.8 g/dL (12.0-15.0); Immature Granulocyte Percent A 0.4 % (0-0.5); Lymphocytes Absolute Auto 1.80 K/mm3 (0.9-3.2); Mean Corpuscular HGB Conc 33.9 g/dl (32-36); Mean Corpuscular Hemoglobin 30.9 pg (26-34); Mean Corpuscular Volume 91.3 fl (80-100); Nucleated Red Blood Cells Absolute Auto 0.000 K/mm3 (0.0-0.012); Nucleated Red Blood Cells Perc 0.0 % (0.0-0.2); Platelet Count Result 252 k/mm3 (150-375); Red Blood Count 4.46 M/mm3 (4.2-5.4); White Blood Count 7.6 K/mm3 (4.5-10.0)
[2025-07-20 07:58] LABS: Alanine Aminotransferase 26 U/L (6-35); Albumin Level 4.4 g/dL (3.5-5.1); Alkaline Phosphatase 60 U/L (38-126); Anion Gap 8 mmol/L (4-12); Aspartate Amino Transferase 28 U/L (14-36); Bilirubin,Total 0.6 mg/dL (0.2-1.3); Blood Urea Nitrogen 15 mg/dL (7-17); Calcium 9.0 mg/dL (8.4-10.2); Carbon Dioxide 26 mmol/L (22-30); Chloride 104 mmol/L (98-107); Estimated CRCL calculation 48 ml/min; Estimated Glomerular Filt Rate 52; Glucose 95 mg/dL (65-110); Lipase 93 U/L (23-300); Potassium 4.1 mmol/L (3.4-5.0); Sodium 138 mmol/L (137-145); Total Protein 7.6 g/dL (6.3-8.2)
[2025-07-20 08:15] LABS: Troponin I < 0.012 ng/mL (0.000-0.034)
--- NOTE | 2025-07-20 08:38 | ED.ABDPAIN ---
HPI - Abdominal Pain General Chief Complaint: Abdominal Pain Stated Complaint: ab pain Time Seen by Provider: 07/20/25 08:17 Source: patient and family () Mode of arrival: ambulatory Limitations: no limitations History of Present Illness HPI narrative: Patient prestns with epigastric abdominal pain associated with nausea and vomiting. Has been going on since the beginning of June. Occurs intermittently, for approximately 15 minutes. 1 - 3 episodes/day. Has been on a GLP1 for approximately 1 year, now maintenance dose with no dose changes recently. LBM 2 days ago. 1.5 months ago stools had been thin and this prompted her concerns. Then she started to have constipation 2-3 weeks and would wipe and need to go again. Underwent pelvic floor therapy. Now both diarrhea and constipation have resolved. No bloody stools, fevers/chills. Still has an appetite. PO ok although oral intake yesterday was off. Has not found any particular relation to food, neither the type or timing. No NSAIDs. Has a PCP and was able to see GI; scheduled for an endoscopy and colonoscopy in 1.[address] [facility]. Also on menoxidil and spironolactone (for hair loss) and sertraline QHS and progesterone. Post-menopausal; LMP >3+ years ago. Occasional social alcohol. Occasional marijuana, 1-2x per week maximum, not daily/near daily. Prior ablation procedure. Related Data Home Medications ?Medication ?Instructions ?Recorded ?Confirmed ?Last Taken ?Type progesterone micronized 200 mg 200 mg DIRECTED 07/18/24 07/07/25 Unknown History capsule sertraline 50 mg tablet 50 mg PO DAILY 07/18/24 07/07/25 Unknown History semaglutide (weight loss) 1.7 1.7 mg subcut WEEKLY 08/15/24 07/07/25 Unknown History mg/0.75 mL subcutaneous pen injector minoxidil 2.5 mg tablet 2.5 mg PO DAILY 04/27/25 07/07/25 Unknown History spironolactone 100 mg tablet 100 mg PO DAILY 04/27/25 07/07/25 Unknown History Allergies Allergy/AdvReac Type Severity Reaction Status Date / Time No Known Allergies Allergy Unknown Verified 07/20/25 07:48 [facility] Past Medical History Medical History Post-menopausal Dilatation, esophagus, congenital Family history of colon cancer in mother Anxiety GERD (gastroesophageal reflux disease) IBS (irritable bowel syndrome) Surgical History Surgical History H/O sinus surgery History of endometrial ablation Family History Family History Mother Hypertension Family history of elevated blood lipids Family history of diabetes mellitus in first degree relative Father Patient's father is in good health Sibling Patient's sister is in good health Grandparent Family history of malignant neoplasm of breast Family history of malignant neoplasm of male breast Social History Social History (Updated 07/22/25 @ 11:37 by Tammie Worley MD) Social History: Alcohol intake: current Drinks per week: 2 Alcohol use details: social Substance use: current Substance use type: marijuana Last use: occasional, max 1-2x/week Living arrangements: with family Gender identity (if verbalized by the patient): Female Sexual Orientation (if Verbalized by the Patient): Straight or Heterosexual Spiritual care concerns: No Exam Narrative: GENERAL: Well-appearing, well-nourished, and in no acute distress. HEAD: Normocephalic, atraumatic. EYES: Non injected, non icteric ENT: Nares clear, no rhinorrhea or epistaxis. Gross auditory acuity intact. NECK: Supple. No meningismus. CHEST: Speaking in full sentences. No respiratory distress. HEART: Regular rate and rhythm. . ABDOMEN: Soft, nondistended. No rigidity or guarding. Not peritoneal. No TTP throughout. Ahuja negative. EXTREMITIES: Normal range of motion. No lower extremity edema. SKIN: Warm, dry, no rash. NEURO: No focal deficits. Alert and oriented. Answering questions. Following commands. Normal speech without aphasia or dysarthria. PSYCH: Normal mood and affect. Course Vital Signs Vital signs: Vital Signs Temperature 98.7 F 07/20/25 07:28 Pulse Rate 72 07/20/25 07:28 Respiratory Rate 14 07/20/25 07:28 Blood Pressure 134/81 07/20/25 07:28 Pulse Oximetry 100 07/20/25 07:28 Oxygen Delivery Room Air 07/20/25 07:28 Temperature 98.7 F 07/20/25 07:28 Pulse Rate 65 07/20/25 12:00 Respiratory Rate 16 07/20/25 12:00 Blood Pressure 105/70 07/20/25 12:00 Pulse Oximetry 100 07/20/25 12:00 Oxygen Delivery Room Air 07/20/25 07:28 MDM - Abdominal Pain MDM Narrative Medical decision making narrative: Patient presetns with epigastric abdominal pain associated with N/V. Going on for approximately 1 month with 15 minute episodes occuring 1-3 times per day. In the emergency department they are afebrile with vital signs within normal limits. Elevated Cr compared to past; 1L IVF ordered for DANIELE. Lipase normal. CBC with mild abnormalities on the differential without leukocytosis, anemia, thrombocytopenia. Normal LFTs. Urine abnormal with bacteriuria but with squamous cells. CT suspicious for esophagitis; Patient already scheduled for EGD and colonoscopy in the next 1.5 weeks. Describes a fullness in her chest sensation to the nurse around the time of protonix administration. Famotidine ordered. Patient is reassessed at 11:35 a.m. and she notes that she feels loopy. Extensive discussion in terms of the fact that esophagitis is suspected based on the CT scan but ultimately it will be EGD that will be helpful for this. We discussed certain medications that can be used although I encouraged her to call GI to discuss if she should fill the omeprazole and or if it should be held a certain amount of time before her procedure. In addition I encouraged her to ask about the fact that she had a seemingly strange side effect after receiving Protonix and further more so if this means she should defer giving this medication. We discussed that otherwise ondansetron/Zofran and dicyclomine are otherwise relatively benign and may be considered as well as the pros and cons and efficacy of [id number] medications like Maalox, Mylanta, Tums, etc.. We discussed her abnormal urinalysis and different antibiotic administration at this time given she has not been having any dysuria, hematuria, urgency or frequency. She is in agreement. Urine culture ordered and in process. Differential Diagnosis Differential diagnosis: Likely abdominal pain, acute appendicitis, constipation, diverticulitis, endometriosis, gastroenteritis, pancreatitis and other (gastritis/GERD/H pylori; medication side effect; biliary etiology; considered cannabinoid hyperemesis, medication (GLP1) side effect; malignancy) Lab Data Attestation: I reviewed the patient's lab results. 07/20/25 07:39 07/20/25 07:39 Labs: Lab Results 07/20/25 07/20/25 Range/Units 07:39 09:15 WBC 7.6 (4.5-10.0) K/mm3 RBC 4.46 (4.2-5.4) M/mm3 Hgb 13.8 (12.0-15.0) g/dL Hct 40.7 (37.0-47.0) % MCV 91.3 (80-100) fl MCH 30.9 (26-34) pg MCHC 33.9 (32-36) g/dl RDW 12.3 (11.5-14.5) % Plt Count 252 (150-375) k/mm3 MPV 10.1 (7.4-10.4) fl Immature Gran % (Auto) 0.4 (0-0.5) % Neut % (Auto) 59.5 (45.5-73.1) % Lymph % (Auto) 23.6 (18.3-44.2) % Garrett % (Auto) 7.0 (2.6-8.5) % Eos % (Auto) 8.3 H (0-4.4) % Baso % (Auto) 1.2 (0.2-1.2) % Lymph # (Auto) 1.80 (0.9-3.2) K/mm3 Garrett # (Auto) 0.5 (0.1-0.6) K/mm3 Eos # (Auto) 0.6 H (0-0.3) K/mm3 Baso # (Auto) 0.1 (0.0-0.1) K/mm3 Abs Immat Gran (auto) 0.03 (0.00-0.031) K/mm3 Absolute Neuts (auto) 4.5 (1.3-6.7) K/mm3 Absolute Nucleated RBC 0.000 (0.0-0.012) K/mm3 Nucleated RBC % 0.0 (0.0-0.2) % Sodium 138 (137-145) mmol/L Potassium 4.1 (3.4-5.0) mmol/L Chloride 104 (98-107) mmol/L Carbon Dioxide 26 (22-30) mmol/L Anion Gap 8 (4-12) mmol/L BUN 15 (7-17) mg/dL Creatinine 1.13 H (0.7-1.0) mg/dL Estim Creat Clear Calc 48 ml/min Estimated GFR 52 L (59 - ) Glucose 95 (65-110) mg/dL Calcium 9.0 (8.4-10.2) mg/dL Total Bilirubin 0.6 (0.2-1.3) mg/dL AST 28 (14-36) U/L ALT 26 (6-35) U/L Alkaline Phosphatase 60 (38-126) U/L Troponin I < 0.012 (0.000-0.034) ng/mL Total Protein 7.6 (6.3-8.2) g/dL Albumin 4.4 (3.5-5.1) g/dL Lipase 93 (23-300) U/L Urine Color Yellow (Yellow) Urine Appearance Cloudy H (Clear) Urine pH 7.0 (5.0-9.0) Ur Specific [place] 1.015 (1.001-1.035) Urine Protein Negative (Negative) mg/dL Urine Glucose (UA) Negative (Negative) mg/dL Urine Ketones Negative (Negative) mg/dL Ur Blood (Man) Negative (Negative) Urine Nitrate Negative (Negative) Urine Bilirubin Negative (Negative) Urine Urobilinogen 0.2 (<2.0) mg/dL Leukocyte Esterase Rfl 3+ H (Negative) KIM/UL Urine RBC 0-2 (0-2) /hpf Urine WBC 6-10 H (0-3) /hpf Ur Squamous Epith Cells Moderate (Few) /hpf Urine Bacteria 4+ H /hpf Urine Casts 0-2 Imaging Data Radiologist's impression: ITS Impressions Abdomen/Pelvis CT 07/20/25 09:51 IMPRESSION: 1. No acute intra-abdominal process. Mild esophagitis suspected. Upper GI or endoscopy may be of benefit. ECG Data EKG #1: Attestation: I personally reviewed and interpreted this ECG as follows: ECG completion date: 07/20/25 ECG completion time: 07:43 Interpretation: Normal sinus rhythm at a rate of 69 beats per minute. RI interval 119. QRS 90. QT/QTC 401/432. Good R-wave progression across the precordial leads. No T-wave inversions. Discharge Plan Discharge Clinical Impression: DANIELE (acute kidney injury), Epigastric abdominal pain, Abnormal urinalysis Patient Disposition: Home Condition: Stable Instructions: Antibiotic Form, Acute Kidney Injury (DC), Epigastric Pain (ED) Additional Instructions: As we discussed, the exact etiology of your symptoms is unclear although esophagitis is suspected. Ultimately, the upcoming EGD and colonoscopy that you have scheduled will be helpful. Call your lavatory attendant to discuss the fact that you presented to the emergency department today and whether this changes the timing of these studies and or if you should take the omeprazole especially given the reaction/side effect you had to the pantoprazole that was given although IV. The dicyclomine/Bentyl may help with cramping sensation as it works on the smooth muscle of the GI tract. The oral disintegrating tablets of ondansetron/Zofran may help suppress the nausea sensation. Your urinalysis was abnormal but a urine culture is in process and we are deferring giving administration of antibiotics until that results given it is felt that this most likely represented a contaminated sample rather than a true urinary tract infection since you are asymptomatic. Follow-up with your primary care provider. Follow-up with your Ob Gyne as well. You had a slight acute kidney injury though this is likely due to very mild dehydration and you received 1 L IV fluids. Maintain your hydration. Return to the emergency department with any new or worsening symptoms. Patient Language: Guyanese Prescriptions: New omeprazole 20 mg tablet,delayed release (DR/EC) 20 mg PO DAILY Qty: 14 0RF ondansetron 4 mg tablet,disintegrating 4 mg PO Q8H PRN (Reason: nausea and vomiting) Qty: 7 0RF dicyclomine 10 mg capsule 10 mg PO BID PRN (Reason: abdominal pain) Qty: 20 0RF No Action sertraline 50 mg tablet 50 mg PO DAILY progesterone micronized 200 mg capsule 200 mg DIRECTED doxycycline hyclate 100 mg capsule 100 mg PO BID 7 Days Qty: 14 0RF spironolactone 100 mg tablet 100 mg PO DAILY minoxidil 2.5 mg tablet 2.5 mg PO DAILY semaglutide (weight loss) 1.7 mg/0.75 mL Pen Injector 1.7 mg SUBCUT WEEKLY Patient Comments: Thursday's Rx Instructions: administer weeks 13 through 16 of therapy Follow-up/Referrals: Romel Polanco MD [Physician, [employer]] Benoit,KATHERINE Brush [Primary Care Provider, Unknown] Stand Alone Forms: Work/School Release IP Time of Disposition: 11:50
[2025-07-20 09:24] LABS: Add Urine Microscopic? YES; Appearance Urine Cloudy (Clear); Glucose Urine UA Negative (Negative); Leukocyte Esterase Ur 3+ LEU/UL (Negative); Nitrate Urine Negative (Negative); Non Pathogenic Casts 0-2; Specific Grav Ur 1.015 (1.001-1.035)
[2025-07-20 09:27] VITALS: BP 118/72; PULSE 74; RESP 15; O2SAT 100
[2025-07-20] MEDS: SODIUM CHLORIDE 0.9% IV 1,000 ML 999 ML IV CONT (09:27)
[2025-07-20] MEDS: PANTOPRAZOLE 40 MG TABLET PO (10:14)
[2025-07-20 10:15] VITALS: BP 113/75; PULSE 65; RESP 16; O2SAT 100
[2025-07-20] MEDS: FAMOTIDINE 20 MG/2 ML VIAL IV PUSH (10:46)
[2025-07-20 11:30] VITALS: BP 110/68; PULSE 69; RESP 16; O2SAT 100
[2025-07-20 12:00] VITALS: BP 105/70; PULSE 65; RESP 16; O2SAT 100
--- OUTSIDE RECORDS SUMMARY | 2025-07-20 16:24 | XMS_ITS | Data Portability ---
Author Organization [facility], Main Office Address [address] [place] [address] Assessment No assessment recorded. Plan of Treatment Reminders Order Date Submit Date Provider Last Modified By Organization Details Last Modified Time Details Appointments None recorded. Lab rf (rheumatoid factor), serum 2022 023 [email or web address] [facility], [address], [place], [address], 3 10:43:17 C reactive protein, QN, serum or plasma 2022 023 [email or web address] [facility], [address], [place], [address], 3 10:43:46 ESR (erythrocyt e sedimentati on rate), blood 2022 023 [email or web address] [facility], [address], [place], [address], 3 10:43:37 uric acid, serum or plasma 2022 023 [email or web address] [facility], [address], [place], [address], 3 10:43:54 ccp (cyclic citrullinat ed peptide) iga+igg, serum 2022 023 [email or web address] [facility], [address], [address], [place], [address], 3 10:43:26 ALONDRA (antinuclea r antibodies) screen, ifa, serum 2022 023 [facility], [address], [address] [address], [place], [address], 3 10:45:57 Referral None recorded. Procedures None [...] Orders cefdinir 300 mg capsule 2023 024 [facility] #[id number], [address], [place], [id number], 4 16:53:05 Medrol (Ricardo) 4 mg tablets in a dose pack 2023 024 [facility] #56782, [address], [place], [id number], 4 16:47:07 cefdinir 300 mg capsule 2022 023 [email or web address] [facility] #02393, [address], [place], [id number], 4 16:42:28 Medrol (Ricardo) 4 mg tablets in a dose pack 2022 023 [email or web address] [facility] #22055, [address] [facility], [place], [place], [id number], 16:42:31 Patient TargetsNo targets recorded. Patient Instructions Encounter Date Encounter Id Patient Instructions Last Modified By Organization Details Last Modified Time 12/17/2023 [id number] he has also an excellent candidate for Dupixent given her nasal polyposis and this will be ordered [email or web address] Not available 12/17/2023 16:46:14 Reason for Referral None Reported. Results Created Date Observation Date Name Description Value Unit Range Abnormal Flag Note LastModifiedBy Organization Detail LastModifiedTime 06/30/2006/30/2023 CT, head, w/o contr ast No observ ation record ed. [facility] [address] [place] [address] Dr, [place], [address], 06/30/2023 15:48:25 10/09/19 24 08/25/2023 MAMMO , scree latricia, digit al, bilat eral No observ ation record ed. [address], [place], [address], 10/09/2023 11:44:01 10/15/[address], maxil lofac ial, w/o contr ast [facility] [address] [place] [address] Patien t Name: DAMIEN MONAE Access ion #: [id number] Sex: F : 1979 9 Dictat [...] 2023 16:07: 41 PM Page 1 [email or web address] [facility] (Imaging) [address] [place], [address], 10/28/2023 12:51:56 10/26/19 24 10/23/2023 CT, sinus es, w/o contr ast No observ ation record ed. [facility] [address] [place] [address], [place], [address], 10/26/2023 08:46:13 Result Notes Documentation Provider Name and Address Organization Details Recorded Time Ct, Maxillofacial, W/o Contrast : [facility] [address] [place] [address] Patient Name: DAMIEN MONAE Sex: F : 1980 [id number] Dictated By: Na Gaytan Attending Physician: NORRIS WONG Ordering Physician: NORRIS WONG Exam Date: 10/15/2023 15:10 PM Exam Name: CT MAXILLOFACIAL WO Admitting Diagnosis(es): INDICATION: Chronic sinusitis EXAM DATE: 10/15/2023 3:10 PM COMPARISON: CT scan of the head performed on 06/30/2023 TECHNIQUE: CT of the sinuses without intravenous contrast. RADIATION DOSE: CTDIvol: 20.2 mGy, DLP: 546.1 mGy*cm FINDINGS: There is partial opacification of the frontal sinuses. There is opacification of the bilateral ethmoid air cells. There is mucous membrane thickening present in the bilateral maxillary sinuses and sphenoid sinus. There are no air-fluid levels. The mastoid air cells are clear. The ostiomeatal unit complexes appear patent bilaterally. The cribriform plate and lamina papyracea appear grossly intact. No abnormality of the orbits or globes is identified. The visualized brain is unremarkable. The surrounding soft tissues and osseous structures are unremarkable. There is flattening of the bilateral mandibular condyles and severe narrowing of the temporomandibular joints. IMPRESSION: Paranasal sinus disease as described. Bilateral temporal mandibular osteoarthritis. Page 1 Rekha Herman RN [facility], [place] - [facility] 10/28/2023 12:51:56 Problems Name Problem SNOMED Code Status Onset Date Resolution Date Notes Provider Name and Address Organization Details Recorded Time Generalize d anxiety disorder 11198619 Active 2018 Not Available [facility] 3 20:39:16 Irritable bowel syndrome characteri zed by constipati on 457502294 Active 2021 Not Available [facility] 3 20:39:17 Failure to lose weight 27892893 Active 2021 Not Available [facility] 3 20:39:17 Anxiety 97827587 Active 2021 Not Available [facility] 3 20:39:17 Amenorrhea 00546032 Active 2021 Not Available [facility] 3 20:39:16 Lower urinary tract symptoms 485996573 Active 2021 [facility] Available [facility] 3 20:39:17 Pain of multiple joints 80202069 Active 2022 BALTA Dalton [address], [address], [place], [address] , [place] [facility] 3 16:49:38 Closed injury of head 724640220941 Active 2022 BALTA Dalton [address], [address], [place], [address] , [place] [facility] 3 14:28:28 Chronic sinusitis 41107941 Active 2022 Rekha Herman RN [facility], [place] [facility] 3 16:53:28 Chronic sinusitis 27355832 Active 2022 Norris Wong MD [address], [address], [place], [address] , [place] [facility] 3 17:02:42 Chronic maxillary sinusitis 39623617 Active 2023 Norris Wong MD [address], [address], [place], [address] , [place] [facility] 4 17:07:07 Chronic ethmoidal sinusitis 55078245 Active 2023 Norris Wong MD [address], [address], [place], [address] , [place] [facility] 4 17:07:19 Chronic frontal sinusitis 58310373 Active 2023 Norris Wong MD [address], [address], [place], [address] , [place] [facility] 4 17:07:37 Chronic sphenoidal sinusitis 62631858 Active 2023 Norris Wong MD [address], [address], [place], [address] , [place] [facility] 4 17:07:55 Sinusitis co-occurre nt with nasal polyps 8662847098702 2 Active 2023 Norris Wong MD [address] [place] [address], [facility] [address], [place], [address] , [facility] 4 17:04:30 Problem Notes None recorded. Procedures Surgical History Date Name Laterality Status Provider Name and Address Organization Details Recorded Time 12/08/19 24 ENDOSCOPY, NASAL/SINUS, W/ MAXILLARY ANTROSTOMY & TISSUE REMOVAL (SURG) completed Rekha Herman RN [facility] 12/10/2023 11:38:49 12/03/19 22 Date of Last Colonoscopy completed Not Available [facility] 11/12/2022 20:38:39 05/27/20 21 ENDOSCOPY, NASAL/SINUS, WITH FRONTAL SINUS EXPLORATION (SURG) completed Not Available [facility] 11/12/2022 20:40:04 09/14/19 18 dilation of esophagus completed Rekha Herman RN [facility] 09/01/2023 16:45:55 Imaging Results None recorded. Procedure Notes None recorded. Medical Equipment None [...] Updated DateTime 11/05/2023 162.56 cm 34.6 kg/m2 17505.22 g 97.6 [degF] Rekha Herman RN [facility] 11/05/2023 16:44:02 Date Recorded Body height Body mass index (BMI) Body weight Body temperature Provider Name and Address Organization Details Last Updated DateTime 12/17/2023 162.56 cm 35.1 kg/m2 80597.56 g 97.7 [degF] Rekha Herman RN [facility] [facility] 12/17/2023 16:29:39 Date Recorded Body height Body temperature Body mass index (BMI) Body weight Respiratory rate Oxygen saturation Oxygen saturation in Arterial blood by Pulse oximetry Heart rate Systolic And Diastolic Provider Name and Address Organization Details Last Updated DateTime 162.56 cm 97.8 [degF] 32 kg/m2 97687.9 8 g 16 /min 98 % 98 % 77 /min 110/72 mm[Hg] IGOR Alvarez [place] [facility] 3 14:14:29 Date Recorded Body height Body temperature Body weight Heart rate Oxygen saturation Oxygen saturation in Arterial blood by Pulse oximetry Systolic And Diastolic Provider Name and Address Organization Details Last Updated DateTime 3 162.56 cm 97.7 [degF] 58748.9 2 g 73 /min 98 % 98 % 118/78 mm[Hg] Aleshai Mcgill RN [facility] 3 16:13:16 Date Recorded Body height Body mass index (BMI) Body weight Body temperature Provider Name and Address Organization Details Last Updated DateTime 09/01/2023 162.56 cm 34.6 kg/m2 77585.94 g 97.6 [degF] Rekha Herman RN [facility] 09/01/2023 16:46:32 Social History Question Answer Notes LastModified by Organizat ion Details LastModified Time Tobacco Smoking Status Never Smoker Not Available [facility] 11/12/2022 20:38:30 What Is Your Level Of Caffeine Consumption? Occasional [id number] Information not available 11/12/2022 In The 14 Days Before Symptom Onset, Have You Had Close Contact With A Laboratory-confirm ed COVID-19 While That Case Was Ill? No [id number] Information not available 11/12/2022 In The 14 Days Before Symptom Onset, Have You Had Close Contact With A Person Who Is Under Investigation For COVID-19 While That Person Was Ill? No [id number].[id number] 7844 Information not available 11/12/2022 What Type Of Diet Are You Following? REGULAR MIGRATION.[id number] 4630 Information not available 11/12/2022 Which Illicit Or Recreational Drugs Have You Used? None MIGRATION.291763 9815 Information not available 11/12/2022 Have There Been Any Changes To Your Family Or Social Situation? No MIGRATION.049765 8054 Information not available 11/12/2022 Do You Use Insect Repellent Routinely? No MIGRATION.865888 2691 Information not available 11/12/2022 What Was The Date Of Your Most Recent Tobacco Screening? 04/25/2022 MIGRATION.[id number] 0224 Information not available 11/12/2022 What Is Your Relationship Status? [email or web address] Information not available 06/23/2023 Do You Use Your Seat Belt Or Car Seat Routinely? Yes MIGRATION.420283 8609 Information not available 11/12/2022 Do You Have Smoke And Carbon Monoxide Detectors In Your Home? Yes MIGRATION.387589 1073 Information not available 11/12/2022 Do You Use Sunscreen Routinely? Yes MIGRATION.491947 2317 Information not available 11/12/2022 Have You Recently Traveled Abroad? No MIGRATION.430135 1536 Information not available 11/12/2022 Do You Have Any Dietary Restrictions? No MIGRATION.202851 5721 Information not available 11/12/2022 Sex: Unknown Functional Status Question Answer Note LastModified by [employer] ion Details LastModified Time Do you use any illicit or recreational drugs? No MIGRATION.[id number] 026 Information not available 11/12/2022 Do you or have you ever used any other forms of tobacco or nicotine? No MIGRATION.3456171 026 Information not available 11/12/2022 What is your level of alcohol consumption? Occasional MIGRATION.9117362 026 Information not available 11/12/2022 What is your exercise level? Occasional MIGRATION.5854551 026 Information not available 11/12/2022 Mental Status None recorded. Family History Relationship Description Onset Age of this Age Resolved Age Notes LastModified by Organization Details LastModified Time Father No current problems or disability [id number] Not available 11/12/2022 20:38:40 Mother Malignant neoplasm of colon [id number] Not available 11/12/2022 20:38:40 Notes:NO ENT Medical History Condition Response MRSA N SLEEP APNEA N ALLERGIES/HAYFEVER N LUNG DISEASE/DISORDER N INSOMNIA N RADIATION / CHEMOTHERAPY N COPD N HIGH CHOLESTEROL / HYPERLIPIDEMIA N HYPERTHYROIDISM N BLOOD DISEASES N EAR OR HEARING PROBLEMS N HYPOTHYROIDISM N DEPRESSION (INCLUDING POST ) N HAVE YOU BEEN HOSPITALIZED OR SEEN IN [facility] ER IN THE PAST YEAR ? N STROKE/TIA N ULCERS N OBESITY N ANEURYSM N HISTORY WITH COMPLICATIONS WITH ANESTHES IA ? N NO SIGNIFICANT PAST MEDICAL HISTORY N USE OF BLOOD THINNERS N DIABETES, TYPE N ENT N PARATHYROID DISEASE N SEASONAL ALLERGIES N HEARTBURN / REFLUX N HEPATITIS / LIVER DISEASE N SLEEP DISORDER N SEIZURES/EPILEPSY N HEADACHES/MIGRAINES N CHF N PACEMAKER N DIZZINESS N AIDS/HIV N HEART DISEASE/HEART PROBLEMS N FRACTURES N HYPERTENSION N CANCER: SPECIFY [...] virus, quadrivalent, preservative 9 completed Not Available [facility] 11/12/2022 20:39:59 Past Encounters Encounter ID Performer Location Encounter Start Date Encounter Closed Date Diagnosis/Indication Diagnosis SNOMED-CT Code Diagnosis ICD10 Code Diagnosis IMO Codes Diagnosis Note [id number] [facility] [place] [address] [place] [address] 03/21/2021 00:00:00 03/21/2021 12:01:55 [id number] Norris Wong MD [facility] [place] [address] [place] [address] 05/07/2021 00:00:00 05/07/2021 14:42:36 [id number] Norris Wong MD [facility] [place] [address] [place] [address] 06/06/2021 00:00:00 06/06/2021 15:30:[id number] [facility] [place] [address] [place] [address] 09/25/2021 00:00:00 10/14/2021 13:12:[id number] [facility] [place] [address] [place] [address] 12/16/2021 00:00:00 01/11/2022 13:47:44 [id number] [address] [facility] [place] [address] [place] [address] 04/25/2022 00:00:00 05/12/2022 00:19:[id number] [facility] [place] [address] [place] [address] 01/02/2023 14:02:45 01/02/2023 15:32:49 Adult health examination 549630976 Z00.00 annual wellness completed. labs are UTD with her hormone specialist . Generalize d anxiety disorder 95722688 F41.1 taper down off sertraline ....per patient request. Long-term drug therapy 231995285 Z79.[id number] [facility] [place] [address] [place] [address] 06/24/2023 16:03:09 06/24/2023 16:51:35 Pain of multiple joints 32974678 M25.50 check RF, CRP, ESR, uric acid, CCP ab, and Alondra panel [id number] Norris Wong MD [facility] [place] [address] [place] [address] 09/01/2023 16:37:32 09/01/2023 17:00:04 Chronic sinusitis 47799802 J32.[id number] [facility] [place] [address] [place] [address] 11/05/2023 15:47:58 11/05/2023 17:28:13 Chronic maxillary sinusitis 37548571 J32.0 Chronic et hmoidal sinusitis 41150301 J32.2 Chronic fr ontal sinusitis 69016503 J32.1 Chronic sp henoidal sinusitis 80662703 J32.3 [id number] [facility] [place] [address] [place] [address] 12/17/2023 16:06:12 12/18/2023 11:08:33 Chronic sinusitis 87091190 J32.9 Sinusitis co-occurrent with nasal polyps 9609039539 9102 J33.9 Health Concerns Section Related Observation LastModified by Organization Detai ls LastModified Time None Recorded Concern Status LastModified by Organization Details LastModified Time None Recorded Advance Directives Directive None Recorded Payers Insurance Date Sequence Insurance Name Policy Number Policy Harmon Covered Member ID Harmon Member ID Guarantor Name 06/16/2024 1 [facility] [id number] Damien Monae [id number] Damien Monae Notes Date Note Type Note Provider Name and Address Organization Details Recorded Time 3 text/html Anxiety/DepressionReported by PatientHPIFor associated symptoms, patient reportsemotional labilityandanxietybut reportsdenies homicidal ideations,no significant weight gain,no significant weight loss,no visual/auditory hallucinations,no delusions, andno shortness of breath. For severity, patient reportsdenies suicidal ideations,able to maintain relationships, anddoes not interfere with activities of daily living. For duration, patient reportssymptoms lasting over 2 weeks. For onset/timing, patient reportsstill present(stable). For context, patient reportsno major life stressors. For modifying factors, (rx).improved Wellness BALTA Dalton [address], [place], [address], [employer] 01/08/2023 17:35:53 3 text/html Musculoskeletal SymptomsReported by PatientMusculoskeletal SymptomsFor hpi, patient reportsno previous injuriesandmoves all extremeties well. For shoulders, patient reportsno injury or trauma. For knees, patient reportsno prior trouble. For ankles, patient reportsno prior injury. For back, patient reportsno back injury. For legs, patient reportsno leg symptoms,no pain left leg, andno pain right leg.multiple joint pains/soreness. no injury. some joint swelling at times she thinks. pt here for c/o joint pain BALTA Dalton [address], [place], [address], [employer] 07/14/2023 23:23:09 3 text/html this patient had sinus surgery 2 years ago and was doing well until about 6 months ago. She has been using krxg-xmu-eklgwxl medications since then and has facial pressure drainage and believes that she has a sinus infection. She has been on no antibiotics in the past 6 months Norris Wong MD [address], [place], [address], [employer] 09/01/2023 17:03:59 4 text/html Pansinusitis on CT. She had surgery 3 years ago Norris Wong MD [address], [facility] [address], [place], [address], [facility] 11/05/2023 17:08:18 4 text/html She has had sinus surgery and reports of facial pain headaches and she did have polyps on the 2nd procedure. Norris Wong MD [address], [facility] [address], [place], [address], [facility] 01/13/2024 17:04:37 OBGyn Episode No OBEpisode recorded.
--- OUTSIDE RECORDS SUMMARY | 2025-07-20 16:25 | XMS_ITS | Data Portability ---
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 Plan of Treatment Reminders Order Date Submit Date Provider Last Modified By Organization Details Last Modified Time Details Appointments ANY 15 2024 03:45P M BALTA Dalton Not available Not available Not available Lab BMP, serum or plasma 2024 025 [facility], [address], [place], [address], 03/23/2025 07:07:55 TSH + free T4, serum 2024 025 [place] [facility], [address], [place], [address], 04/12/2025 09:08:46 lipid panel, serum 2024 025 [facility] Shen, [address], [place], [address], 04/12/2025 09:08:45 CMP, serum or plasma 2024 025 [facility] Shen, [address], [place], [address], 04/12/2025 09:08:47 CBC w/ auto diff 2024 025 [facility] Shen, [address], [place], [address], 04/12/2025 09:08:52 vitamin B12 + folate, serum or blood 2024 025 [place] [facility], [address], [place], [address], 04/12/2025 09:08:48 insulin, serum 2024 025 [facility], [address], [place], [address], 04/12/2025 09:08:51 HbA1c (hemoglob in A1c), blood 2024 025 [place], [address], [place], [address], 04/12/2025 09:08:50 unlisted lab - covid-19 antibodie s IgM 2023 024 [facility] [facility], [address], [place], [address], 08/08/2024 14:36:36 carlota lazar virus Ab panel, serum 2023 024 [email or web address], [address], [place], [address], 08/10/2024 10:18:36 iron + TIBC + ferritin, serum 2023 024 [facility], [address], [place], [address], 08/08/2024 14:36:38 CMP, serum or plasma 2023 024 [place], [address], [place], [address], 08/08/2024 14:36:34 CBC w/ auto diff 2023 024 [email or web address], [address], [place], [address], 08/10/2024 10:18:36 TSH + free T4, serum 2023 024 [facility], [address], [place], [address], 03/15/2024 16:36:30 T3, free, serum or plasma 2023 024 [place] [facility], [address], [place], [address], 03/15/2024 16:36:34 thyropero xidase Ab, serum 2023 024 [facility] [facility], [address], [place], [address], 03/15/2024 16:36:33 CMP, serum or plasma 2023 024 [place] [facility], [address], [place], [address], 03/15/2024 16:36:31 CBC w/ auto diff 2023 024 [place] [facility], [address], [place], [address], 03/15/2024 16:36:33 vitamin B12 + folate, serum or blood 2023 024 [place] [facility], [address], [place], [address], 03/15/2024 16:36:31 lipid panel, serum 2023 024 [facility], [address], [place], [address], 03/15/2024 16:36:29 HbA1c (hemoglob in A1c), blood 2023 [place] [facility], [address], [place], [address], 03/15/2024 16:36:32 Referral None recorded. Procedures None recorded. Surgeries None recorded. Imaging None recorded. Medication Orders bupropion HCl XL 150 mg 24 hr tablet, extended release 2024 [id number], [address], [place], [place], [id number], 02/14/2025 09:55:54 Medrol (Ricardo) 4 mg tablets in a dose pack 2023 [facility] #[id number], [address], [place], [place], [id number], 08/10/2024 08:19:43 cefdinir 300 mg capsule 2023 [facility] #[id number], [address], [place], [place], [id number], 08/10/2024 08:19:45 Patient TargetsNo targets recorded. Patient Instructions Encounter Date Encounter Id Patient Instructions Last Modified By Organization Details Last Modified Time 02/17/2024 [id number] A healthy lifestyle: care instructions Not available 02/23/2024 18:12:29 12/14/2024 [id number] A healthy lifestyle: care instructions Not available 12/14/2024 09:15:05 02/14/2025 [id number] A healthy lifestyle: care instructions Not available 02/14/2025 10:17:52 Reason for Referral None Reported. Results Created Date Observation Date Name Description Value Unit Range Abnormal Flag Note LastModifiedBy Organization Detail LastModifiedTime 03/14/2003/15/2024 LIPID PANEL W/ CHOL/ HDL RATIO cholesterol, total 204 mg/dL 100-19 9 above high normal Not Available [facility] ([facility]) [address], [place], [address], 03/15/2024 16:36:29 03/14/20 24 03/15/2024 LIPID PANEL W/ CHOL/ HDL RATIO triglyceride s 83 mg/dL 0-149 Not Available [facility] ([facility]) [address] [place], [address], 03/15/2024 16:36:29 03/14/20 24 03/15/2024 LIPID PANEL W/ CHOL/ HDL RATIO HDL cholesterol 59 mg/dL >39 Not Available [facility] ([facility]) [address] [place], [address], 03/15/2024 16:36:29 03/14/20 24 03/15/2024 LIPID PANEL W/ CHOL/ HDL RATIO VLDL cholesterol samuel 15 mg/dL 5-40 Not Available [facility] ([facility]) [address] [place], [address], 03/15/2024 16:36:29 03/14/20 24 03/15/2024 LIPID PANEL W/ CHOL/ HDL RATIO LDL chol calc ([facility]) 130 mg/dL 0-99 above high normal Not Available [facility] ([facility]) [address] [place], [address], 03/15/2024 16:36:29 03/14/20 24 03/15/2024 LIPID PANEL W/ CHOL/ HDL RATIO T. chol/HDL ratio 3.5 ratio 0.0-4. 4 T. Chol/ HDL Ratio Men Women 1/2 Avg.R isk 3.4 3.3 Avg.R isk 5.0 4.4 2X Avg.R isk 9.6 7.1 3X Avg.R isk 23.4 11.0 Not Available [facility] ([facility]) [address] [place], [address], 03/15/2024 16:36:29 03/14/20 24 03/15/2024 TSH+F REE T4 TSH 1.170 uIU/m L 0.450- 4.500 Not Available [facility] ([facility]) [address] [place], [address], 03/15/2024 16:36:30 03/14/20 24 03/15/2024 TSH+F REE T4 T4,free(dire ct) 0.93 NG/dL 0.82-1 .77 Not Available [facility] ([facility]) [address] [place] [place], [address], 03/15/2024 16:36:30 03/14/20 24 03/15/2024 COMP. METAB OLIC PANEL (14) glucose 91 mg/dL 70-99 Not Available [facility] ([facility]) [address] [place], [address], 03/15/2024 16:36:31 03/14/20 24 03/15/2024 COMP. METAB OLIC PANEL (14) BUN 19 mg/dL 6-24 Not Available [facility] ([facility]) [address] [place], [address], 03/15/2024 16:36:31 03/14/20 24 03/15/2024 COMP. METAB OLIC PANEL (14) creatinine 1.28 mg/dL 0.57-1 .00 above high normal Not Available [facility] ([facility]) [address] [place], [address], 03/15/2024 16:36:31 03/14/20 24 03/15/2024 COMP. METAB OLIC PANEL (14) eGFR 53 mL/mi n/1.7 3 >59 below low normal Not Available [facility] ([facility]) [address] [place], [address], 03/15/2024 16:36:31 03/14/20 24 03/15/2024 COMP. METAB OLIC PANEL (14) BUN/creatini ne ratio 15 9-23 Not Available [facility] ([facility]) [address], [place], [address], 03/15/2024 16:36:31 03/14/20 24 03/15/2024 COMP. METAB OLIC PANEL (14) sodium 140 mmol/ L 134-14 4 Not Available [facility] ([facility]) [address] [place], [address], 03/15/2024 16:36:31 03/14/20 24 03/15/2024 COMP. METAB OLIC PANEL (14) potassium 4.7 mmol/ L 3.5-5. 2 Not Available [facility] ([facility]) [address] [place], [address], 03/15/2024 16:36:31 03/14/20 24 03/15/2024 COMP. METAB OLIC PANEL (14) chloride 103 mmol/ L 96-106 Not Available [facility] ([facility]) [address] [place], [address], 03/15/2024 16:36:31 03/14/20 24 03/15/2024 COMP. METAB OLIC PANEL (14) carbon dioxide, total 23 mmol/ L 20-29 Not Available [facility] ([facility]) [address] [place], [address], 03/15/2024 16:36:31 03/14/20 24 03/15/2024 COMP. METAB OLIC PANEL (14) calcium 9.6 mg/dL 8.7-10 .2 Not Available [facility] ([facility]) [address] [place], [address], 03/15/2024 16:36:31 03/14/20 24 03/15/2024 COMP. METAB OLIC PANEL (14) protein, total 7.2 g/dL 6.0-8. 5 Not Available [facility] ([facility]) [address] [place], [address], 03/15/2024 16:36:31 03/14/20 24 03/15/2024 COMP. METAB OLIC PANEL (14) albumin 4.3 g/dL 3.9-4. 9 Not Available [facility] ([facility]) [address] [facility], [place], [address], 03/15/2024 16:36:31 03/14/20 24 03/15/2024 COMP. METAB OLIC PANEL (14) globulin, total 2.9 g/dL 1.5-4. 5 Not Available [facility] ([facility]) [address] [facility], [place], [address], 03/15/2024 16:36:31 03/14/20 24 03/15/2024 COMP. METAB OLIC PANEL (14) bilirubin, total 0.4 mg/dL 0.0-1. 2 Not Available [facility] ([facility]) [address] [place], [address], 03/15/2024 16:36:31 03/14/20 24 03/15/2024 COMP. METAB OLIC PANEL (14) alkaline phosphatase 87 IU/L 44-121 Not Available [facility]) [address] [place], [address], 03/15/2024 16:36:31 03/14/20 24 03/15/2024 COMP. METAB OLIC PANEL (14) AST (SGOT) 20 IU/L 0-40 Not Available [facility] ([facility]) [address] [place], [address], 03/15/2024 16:36:31 03/14/20 24 03/15/2024 COMP. METAB OLIC PANEL (14) ALT (SGPT) 22 IU/L 0-32 Not Available [facility] ([facility]) [address] [facility], [place], [address], 03/15/2024 16:36:31 03/14/20 24 03/15/2024 VITAM IN B12 AND FOLAT E vitamin B12 1321 pg/mL 232-12 45 above high normal Not Available [facility] ([facility]) [address] [facility], [place], [address], 03/15/2024 16:36:31 03/14/20 24 03/15/2024 VITAM IN B12 AND FOLAT E folate (folic acid), serum 5.0 NG/mL >3.0 A serum folat e ivett ntrat ion of less than 3.1 ng/mL is consi dered to repre sent clini samuel defic iency . Not Available [facility] ([facility]) [address] [facility], [place], [address], 03/15/2024 16:36:31 03/14/20 24 03/15/2024 HEMOG LOBIN A1C hemoglobin A1C 5.7 % 4.8-5. 6 above high normal Predi abete s: 5.7 - 6.4 Diabe naty: >6.4 Glyce maria fernanda contr ol for adult s with diabe naty: <7.0 Not Available [facility] ([facility]) [address] [facility], [place], [address], 03/15/2024 16:36:32 03/14/20 24 03/15/2024 CBC WITH DIFFE RENTI AL/PL ATELE T WBC 9.1 x10e3 /uL 3.4-10 .8 Not Available [facility] ([facility]) [address] [place], [address], 03/15/2024 16:36:33 03/14/20 24 03/15/2024 CBC WITH DIFFE RENTI AL/PL ATELE T RBC 4.85 x10e6 /uL 3.77-5 .28 Not Available [facility] ([facility]) [address] [facility], [place], [address], 03/15/2024 16:36:33 03/14/20 24 03/15/2024 CBC WITH DIFFE RENTI AL/PL ATELE T hemoglobin 14.4 g/dL 11.1-1 5.9 Not Available [facility] ([facility]) [address] [facility], [place], [address], 03/15/2024 16:36:33 03/14/20 24 03/15/2024 CBC WITH DIFFE RENTI AL/PL ATELE T hematocrit 42.3 % 34.0-4 6.6 Not Available [facility] ([facility]) [address] [facility], [place], [address], 03/15/2024 16:36:33 03/14/20 24 03/15/2024 CBC WITH DIFFE RENTI AL/PL ATELE T MCV 87 fL 79-97 Not Available [facility] ([facility]) [address] [facility], [place], [address], 03/15/2024 16:36:33 03/14/20 24 03/15/2024 CBC WITH DIFFE RENTI AL/PL ATELE T MCH 29.7 pg 26.6-3 3.0 Not Available [facility] ([facility]) [address] [place], [address], 03/15/2024 16:36:33 03/14/20 24 03/15/2024 CBC WITH DIFFE RENTI AL/PL ATELE T MCHC 34.0 g/dL 31.5-3 5.7 Not Available [facility] ([facility]) [address] [place], [address], 03/15/2024 16:36:33 03/14/20 24 03/15/2024 CBC WITH DIFFE RENTI AL/PL ATELE T RDW 12.3 % 11.7-1 5.4 Not Available [facility] ([facility]) [address] [place], [address], 03/15/2024 16:36:33 03/14/20 24 03/15/2024 CBC WITH DIFFE RENTI AL/PL ATELE T platelets 249 x10e3 /uL 150-45 0 Not Available [facility] ([facility]) [address] [facility], [place], [address], 03/15/2024 16:36:33 03/14/20 24 03/15/2024 CBC WITH DIFFE RENTI AL/PL ATELE T neutrophils 61 % notest ab. Not Available [facility] ([facility]) [address] [facility], [place], [address], 03/15/2024 16:36:33 03/14/20 24 03/15/2024 CBC WITH DIFFE RENTI AL/PL ATELE T lymphs 23 % notest ab. Not Available [facility] ([facility]) [address] [facility], [place], [address], 03/15/2024 16:36:33 03/14/20 24 03/15/2024 CBC WITH DIFFE RENTI AL/PL ATELE T monocytes 7 % notest ab. Not Available [facility] ([facility]) [address] [facility], [place], [address], 03/15/2024 16:36:33 03/14/20 24 03/15/2024 CBC WITH DIFFE RENTI AL/PL ATELE T eos 8 % notest ab. Not Available [facility] ([facility]) [address] [place], [address], 03/15/2024 16:36:33 03/14/20 24 03/15/2024 CBC WITH DIFFE RENTI AL/PL ATELE T basos 1 % notest ab. Not Available [facility] ([facility]) [address] [place], [address], 03/15/2024 16:36:33 03/14/20 24 03/15/2024 CBC WITH DIFFE RENTI AL/PL ATELE T neutrophils (absolute) 5.6 x10e3 /uL 1.4-7. 0 Not Available [facility] ([facility]) [address] [facility] [place], [address], 03/15/2024 16:36:33 03/14/20 24 03/15/2024 CBC WITH DIFFE RENTI AL/PL ATELE T lymphs (absolute) 2.1 x10e3 /uL 0.7-3. 1 Not Available [facility] ([facility]) [address] [facility], [place], [address], 03/15/2024 16:36:33 03/14/20 24 03/15/2024 CBC WITH DIFFE RENTI AL/PL ATELE T monocytes(ab solute) 0.6 x10e3 /uL 0.1-0. 9 Not Available [facility] ([facility]) [address] [facility], [place], [address], 03/15/2024 16:36:33 03/14/20 24 03/15/2024 CBC WITH DIFFE RENTI AL/PL ATELE T eos (absolute) 0.7 x10e3 /uL 0.0-0. 4 above high normal Not Available [facility] ([facility]) [address] [facility], [place], [address], 03/15/2024 16:36:33 03/14/20 24 03/15/2024 CBC WITH DIFFE RENTI AL/PL ATELE T baso (absolute) 0.1 x10e3 /uL 0.0-0. 2 Not Available [facility] ([facility]) [address] [facility], [place], [address], 03/15/2024 16:36:33 03/14/20 24 03/15/2024 CBC WITH DIFFE RENTI AL/PL ATELE T immature granulocytes 0 % notest ab. Not Available [facility] ([facility]) [address] [facility], [place], [address], 03/15/2024 16:36:33 03/14/20 24 03/15/2024 CBC WITH DIFFE RENTI AL/PL ATELE T immature grans (abs) 0.0 x10e3 /uL 0.0-0. 1 Not Available [facility] ([facility]) [address] [place], [address], 03/15/2024 16:36:33 03/14/20 24 03/15/2024 THYRO ID ANTIB ODIES thyroid peroxidase (tpo) Ab 17 IU/mL 0-34 Not Available [facility] ([facility]) [address] [place], [address], 03/15/2024 16:36:33 03/14/20 24 03/15/2024 THYRO ID ANTIB ODIES thyroglobuli n antibody <1.0 IU/mL 0.0-0. 9 Thyro globu ken Antib benigno measu red by Justyn young Metho dolog y It shoul d be noted that the prese nce of thyro globu ken antib odies may not be patho genic nor diagn ostic , espec ially at very low level s. The assay carlos actur er has found that four perce nt of indiv idual s witho ut evide nce of thyro id disea se or autoi mmuni ty will have posit jacki TgAb level s up to 4 IU/mL . Not Available [facility] ([facility]) [address] [facility], [place], [address], 03/15/2024 16:36:33 03/14/20 24 03/15/2024 TRIIO DOTHY SCARLET E (T3), FREE triiodothyro nine (T3), free 2.6 pg/mL 2.0-4. 4 Not Available [facility] ([facility]) [address] [place], [address], 03/15/2024 16:36:34 06/24/20 24 06/25/2024 BASIC METAB OLIC PANEL (8) glucose 92 mg/dL 70-99 Not Available [facility] ([facility]) [address] [place], [address], 06/25/2024 07:22:49 06/24/20 24 06/25/2024 BASIC METAB OLIC PANEL (8) BUN 12 mg/dL 6-24 Not Available [facility] ([facility]) [address] [place], [address], 06/25/2024 07:22:49 06/24/20 24 06/25/2024 BASIC METAB OLIC PANEL (8) creatinine 1.15 mg/dL 0.57-1 .00 above high normal Not Available [facility] ([facility]) [address] [facility], [place], [address], 06/25/2024 07:22:49 06/24/2006/25/2024 BASIC METAB OLIC PANEL (8) eGFR 60 mL/mi n/1.7 3 >59 Not Available [facility] ([facility]) [address] [facility], [place], [address], 06/25/2024 07:22:49 06/24/20 24 06/25/2024 BASIC METAB OLIC PANEL (8) BUN/creatini ne ratio 10 9-23 Not Available [facility] ([facility]) [address] [place], [address], 06/25/2024 07:22:49 06/24/20 24 06/25/2024 BASIC METAB OLIC PANEL (8) sodium 140 mmol/ L 134-14 4 Not Available [facility] ([facility]) [address] [place], [address], 06/25/2024 07:22:49 06/24/20 24 06/25/2024 BASIC METAB OLIC PANEL (8) potassium 4.2 mmol/ L 3.5-5. 2 Not Available [facility] ([facility]) [address] [place], [address], 06/25/2024 07:22:49 06/24/20 24 06/25/2024 BASIC METAB OLIC PANEL (8) chloride 103 mmol/ L 96-106 Not Available [facility] ([facility]) [address] [place], [address], 06/25/2024 07:22:49 06/24/20 24 06/25/2024 BASIC METAB OLIC PANEL (8) carbon dioxide, total 23 mmol/ L 20-29 Not Available [facility] ([facility]) [address] [facility], [place], [address], 06/25/2024 07:22:49 06/24/20 24 06/25/2024 BASIC METAB OLIC PANEL (8) calcium 9.6 mg/dL 8.7-10 .2 Not Available [facility] ([facility]) [address] [facility], [place], [address], 06/25/2024 07:22:49 06/24/20 24 06/25/2024 ENDY C DISEA SE COMPR EHENS JACKI deamidated gliadin abs, IgA 7 units 0-19 Negat jacki 0 - 19 Weak Posit jacki 20 - 30 Moder ate to Stron g Posit jacki >30 Not Available [facility] ([facility]) [address] [place], [address], 06/28/2024 14:36:56 06/24/20 24 06/25/2024 ENDY C DISEA SE COMPR EHENS JACKI deamidated gliadin abs, IgG 2 units 0-19 Negat jacki 0 - 19 Weak Posit jacki 20 - 30 Moder ate to Stron g Posit jacki >30 Not Available [facility] ([facility]) [address] [place], [address], 06/28/2024 14:36:56 06/24/2006/25/2024 ENDY C DISEA SE [...] tive enter opath y. Not Available [facility] ([facility]) [address] [facility], [place], [address], 06/28/2024 14:36:56 06/24/2006/25/2024 ENDY C DISEA SE COMPR EHENS JACKI T-transgluta minase (ttg) IgG 3 U/mL 0-5 Negat jacki 0 - 5 Weak Posit jacki 6 - 9 Posit jacki >9 Not Available [facility] ([facility]) [address] [facility], [place], [address], 06/28/2024 14:36:56 06/24/20 24 06/25/2024 ENDY C DISEA SE COMPR EHENS JACKI immunoglobul in A, qn, serum 331 mg/dL 87-352 Not Available [facility] ([facility]) [address] [facility], [place], [address], 06/28/2024 14:36:56 06/24/20 24 06/28/2024 ENDY C DISEA SE COMPR EHENS JACKI endomysial antibody IgA NEGATI VE negati ve Not Available [facility] ([facility]) [address] [place], [address], 06/28/2024 14:36:56 07/20/2007/20/2024 EBV ANTIB BENIGNO PROFI LE interpretati on: Commen t EBV Inter preta tion Chart Streeter: Antib benigno Prese nt + Antib benigno Absen t - Inter preta tion VCA-I gM VCA-I gG EBNA- IgG No previ ous infec tion/ - - - Susce ptibl e Prima ry infec tion (new + + - or recen t) Past Infec tion +or- + + See comme nt below * + - - *Resu lts indic ate infec tion with EBV at some time howev er canno t predi ct the timin g of the infec tion since antib odies to EBNA usual ly devel op after prima ry infec tion or, alter nativ teresa, appro ximat teresa 5-10% of patie nts with EBV never devel op antib odies to EBNA. Not Available [address], [place], [address], 08/08/2024 14:36:33 07/20/20 24 07/21/2024 EBV ANTIB BENIGNO PROFI LE ebv Ab vca, IgM <36.0 Negat jacki <36.0 Equiv ocal 36.0 - 43.9 Posit jacki >43.9 Not Available [address], [place], [address], 08/08/2024 14:36:33 07/20/20 24 07/21/2024 EBV ANTIB BENIGNO PROFI LE ebv Ab vca, IgG 23.6 U/mL 0.0-17 .9 above high normal Negat jacki <18.0 Equiv ocal 18.0 - 21.9 Posit jacki >21.9 Not Available [address], [place], [address], 08/08/2024 14:36:33 07/20/20 24 07/21/2024 EBV ANTIB BENIGNO PROFI LE ebv nuclear antigen Ab, IgG >600.0 U/mL 0.0-17 .9 above high normal Negat jacki <18.0 Equiv ocal 18.0 - 21.9 Posit jacki >21.9 Not Available [address], [place], [address], 08/08/2024 14:36:33 07/20/20 24 07/22/2024 CMP14 +EGFR glucose 83 mg/dL 70-99 Not Available [address], [place], [address], 08/08/2024 14:36:34 07/20/20 24 07/22/2024 CMP14 +EGFR BUN 14 mg/dL 6-24 Not Available [address], [place], [address], 08/08/2024 14:36:34 07/20/20 24 07/22/2024 CMP14 +EGFR creatinine 1.23 mg/dL 0.57-1 .00 above high normal Not Available [address], [place], [address], 08/08/2024 14:36:34 07/20/20 24 07/22/2024 CMP14 +EGFR eGFR 56 mL/mi n/1.7 3 >59 below low normal Not Available [address], [place], [address], 08/08/2024 14:36:34 07/20/20 24 07/22/2024 CMP14 +EGFR BUN/creatini ne ratio 11 9-23 Not Available [address], [place], [address], 08/08/2024 14:36:34 07/20/20 24 07/22/2024 CMP14 +EGFR sodium 139 mmol/ L 134-14 4 Not Available [address], [place], [address], 08/08/2024 14:36:34 07/20/20 24 07/22/2024 CMP14 +EGFR potassium 4.3 mmol/ L 3.5-5. 2 Not Available [address], [place], [address], 08/08/2024 14:36:34 07/20/20 24 07/22/2024 CMP14 +EGFR chloride 101 mmol/ L 96-106 Not Available [address], [place], [address], 08/08/2024 14:36:34 07/20/20 24 07/22/2024 CMP14 +EGFR carbon dioxide, total 23 mmol/ L 20-29 Not Available [address], [place], [address], 08/08/2024 14:36:34 07/20/20 24 07/22/2024 CMP14 +EGFR calcium 9.7 mg/dL 8.7-10 .2 Not Available [address], [place], [address], 08/08/2024 14:36:34 07/20/20 24 07/22/2024 CMP14 +EGFR protein, total 7.3 g/dL 6.0-8. 5 Not Available [address], [place], [address], 08/08/2024 14:36:34 07/20/20 24 07/22/2024 CMP14 +EGFR albumin 4.6 g/dL 3.9-4. 9 Not Available [address], [place], [address], 08/08/2024 14:36:34 07/20/20 24 07/22/2024 CMP14 +EGFR globulin, total 2.7 g/dL 1.5-4. 5 Not Available [address], [place], [address], 08/08/2024 14:36:34 07/20/20 24 07/22/2024 CMP14 +EGFR bilirubin, total 0.2 mg/dL 0.0-1. 2 Not Available [address], [place], [address], 08/08/2024 14:36:34 07/20/20 24 07/22/2024 CMP14 +EGFR alkaline phosphatase 82 IU/L 44-121 Not Available [facility] [address], [place], [address], 08/08/2024 14:36:34 07/20/20 24 07/22/2024 CMP14 +EGFR AST (SGOT) 22 IU/L 0-40 Not Available [address] [place], [place], [address], 08/08/2024 14:36:34 07/20/20 24 07/22/2024 CMP14 +EGFR ALT (SGPT) 19 IU/L 0-32 Not Available [address] [place], [place], [address], 08/08/2024 14:36:34 07/20/20 24 08/08/2024 COVID -19 ANTIB ODIES IGM result NEGATI VE Not Available [address] [place], [place], [address], 08/08/2024 14:36:35 07/20/20 24 08/08/2024 COVID -19 ANTIB ODIES IGM value 0.15 coi <0.8: Negat jacki 0.8-< 1.0: Indet ermin ate >=1.0 : Posit jacki Not Available [address] [place], [place], [address], 08/08/2024 14:36:35 07/20/20 24 08/08/2024 COVID -19 ANTIB ODIES IGM methodology COMMEN T Chemi lumin escen ce Not Available [address] [place], [place], [address], 08/08/2024 14:36:35 07/20/20 24 08/08/2024 COVID -19 ANTIB ODIES IGM comment NOTES Negat jacki resul ts to antib odies again st SARS- CoV-2 are gener ally indic ative of non-e xposu re to virus and lack of longe vity of antib benigno respo nse. Not Available [address] [place], [place], [address], 08/08/2024 14:36:35 07/20/20 24 08/08/2024 COVID -19 ANTIB ODIES IGM references NOTES Praveen Sy, Praveen Bell, Champ Tamez, Diana Cutler, Michelle Marroquin, Guille Tamez, et. al. (2020 ). Profi richard early humor al respo nse to diagn ose novel coron aviru s disea se (COVI D-19) . Clini samuel Infec tious Disea ses. Haritha Ferrari et al. (2019 ) Profi le of Speci fic Antib odies to SARS- CoV-2 : The First Repor t Journ al of Infec tion (2019 ), doi: https ://do i.org /10.1 016/j .jinf .2019 .03.0 52 Gunner Escobedo et al. (2019 ). Antib benigno respo nses to SARS- CoV-2 in COVID -19 patie nts: the persp ectiv e appli catio n of serol ogica l tests in clini samuel pract ice. 10.10/03. .18.2 89127 18. Not Available [address], [place], [address], 08/08/2024 14:36:35 07/20/20 24 08/08/2024 COVID -19 ANTIB ODIES IGM disclaimer NOTES This is a lab devel oped test. This test has been valid ated in accor dance with [facility] of [facility] [place] guide lines and FDA saroj nce docum ent ([place] for diagn ostic testi ng in labor atori es certi fied to perfo rm high compl exity testi ng under CLIA prior to Emerg ency Use Autho rizat ion for Coron aviru s Disea se-20 19 the [facility]) issue d on 2019. This test has not been revie wed by the FDA. Negat jacki resul ts do not precl ude acute SARS- CoV-2 infec tion. If acute infec tion is suspe cted, direc t testi ng for SARS- CoV-2 is neces ping. Resul ts from antib benigno testi ng shoul d not be used to diagn ose or exclu de acute SARS- CoV-2 infec tion. Posit jacki resul ts may be due to past or prese nt infec tion with non-S ARS-C oV-2 coron aviru s strai ns, such as coron aviru s HKU1, NL63, OC43, or 229E. Not Available [address], [place], [address], 08/08/2024 14:36:35 07/20/20 24 08/08/2024 COVID -19 ANTIB ODIES IGM electronical ly signed by BECKA Stanley on [employer] r Not Available [address], [place], [address], 08/08/2024 14:36:35 07/20/20 24 07/21/2024 CBC WITH DIFFE RENTI AL/PL ATELE T WBC 11.1 x10e3 /uL 3.4-10 .8 above high normal Eff ectiv e Decem raegan 2023 [place] [id number] 5 WBC will be made* * non-o rdera ble as a stand -dalia e order code. Not Available [address], [place], [address], 08/08/2024 14:36:37 07/20/20 24 07/21/2024 CBC WITH DIFFE RENTI AL/PL ATELE T RBC 4.91 x10e6 /uL 3.77-5 .28 Not Available [address], [place], [address], 08/08/2024 14:36:37 07/20/20 24 07/21/2024 CBC WITH DIFFE RENTI AL/PL ATELE T hemoglobin 15.0 g/dL 11.1-1 5.9 Not Available [address], [place], [address], 08/08/2024 14:36:37 07/20/20 24 07/21/2024 CBC WITH DIFFE RENTI AL/PL ATELE T hematocrit 43.8 % 34.0-4 6.6 Not Available [address], [place], [address], 08/08/2024 14:36:37 07/20/20 24 07/21/2024 CBC WITH DIFFE RENTI AL/PL ATELE T MCV 89 fL 79-97 Not Available [address], [place], [address], 08/08/2024 14:36:37 07/20/20 24 07/21/2024 CBC WITH DIFFE RENTI AL/PL ATELE T MCH 30.5 pg 26.6-3 3.0 Not Available [address], [place], [address], 08/08/2024 14:36:37 07/20/20 24 07/21/2024 CBC WITH DIFFE RENTI AL/PL ATELE T MCHC 34.2 g/dL 31.5-3 5.7 Not Available [address], [place], [address], 08/08/2024 14:36:37 07/20/20 24 07/21/2024 CBC WITH DIFFE RENTI AL/PL ATELE T RDW 12.1 % 11.7-1 5.4 Not Available [address], [place], [address], 08/08/2024 14:36:37 07/20/20 24 07/21/2024 CBC WITH DIFFE RENTI AL/PL ATELE T platelets 248 x10e3 /uL 150-45 0 Not Available [address], [place], [address], 08/08/2024 14:36:37 07/20/20 24 07/21/2024 CBC WITH DIFFE RENTI AL/PL ATELE T neutrophils 61 % notest ab. Not Available [address], [place], [address], 08/08/2024 14:36:37 07/20/20 24 07/21/2024 CBC WITH DIFFE RENTI AL/PL ATELE T lymphs 26 % notest ab. Not Available [address], [place], [address], 08/08/2024 14:36:37 07/20/20 24 07/21/2024 CBC WITH DIFFE RENTI AL/PL ATELE T monocytes 6 % notest ab. Not Available [address], [place], [address], 08/08/2024 14:36:37 07/20/20 24 07/21/2024 CBC WITH DIFFE RENTI AL/PL ATELE T eos 5 % notest ab. Not Available [address], [place], [address], 08/08/2024 14:36:37 07/20/20 24 07/21/2024 CBC WITH DIFFE RENTI AL/PL ATELE T basos 1 % notest ab. Not Available [address], [place], [address], 08/08/2024 14:36:37 07/20/20 24 07/21/2024 CBC WITH DIFFE RENTI AL/PL ATELE T neutrophils (absolute) 6.9 x10e3 /uL 1.4-7. 0 Not Available [address], [place], [address], 08/08/2024 14:36:37 07/20/20 24 07/21/2024 CBC WITH DIFFE RENTI AL/PL ATELE T lymphs (absolute) 2.9 x10e3 /uL 0.7-3. 1 Not Available [address], [place], [address], 08/08/2024 14:36:37 07/20/20 24 07/21/2024 CBC WITH DIFFE RENTI AL/PL ATELE T monocytes(ab solute) 0.7 x10e3 /uL 0.1-0. 9 Not Available [address], [place], [address], 08/08/2024 14:36:37 07/20/20 24 07/21/2024 CBC WITH DIFFE RENTI AL/PL ATELE T eos (absolute) 0.5 x10e3 /uL 0.0-0. 4 above high normal Not Available [address] [place], [place], [address], 08/08/2024 14:36:37 07/20/20 24 07/21/2024 CBC WITH DIFFE RENTI AL/PL ATELE T baso (absolute) 0.1 x10e3 /uL 0.0-0. 2 Not Available [address], [place], [address], 08/08/2024 14:36:37 07/20/20 24 07/21/2024 CBC WITH DIFFE RENTI AL/PL ATELE T immature granulocytes 1 % notest ab. Not Available [address], [place], [address], 08/08/2024 14:36:37 07/20/20 24 07/21/2024 CBC WITH DIFFE RENTI AL/PL ATELE T immature grans (abs) 0.1 x10e3 /uL 0.0-0. 1 Not Available [address] [place], [place], [address], 08/08/2024 14:36:37 07/20/20 24 07/22/2024 FE+TI BC+FE R iron bind.cap.(TI BC) 354 ug/dL 250-45 0 Not Available [address] [place], [place], [address], 08/08/2024 14:36:38 07/20/20 24 07/22/2024 FE+TI BC+FE R UIBC 306 ug/dL 131-42 5 Not Available [address], [place], [address], 08/08/2024 14:36:38 07/20/20 07/22/2024 FE+TI BC+FE R iron 48 ug/dL 27-159 Not Available [facility] [address] [facility] [place], [address], 08/08/2024 14:36:38 07/20/20 24 07/22/2024 FE+TI BC+FE R iron saturation 14 % 15-55 below low normal Not Available [place] [address] [facility] [place], [address], 08/08/2024 14:36:38 07/20/20 24 07/22/2024 FE+TI BC+FE R ferritin 203 NG/mL 15-150 above high normal Not Available [facility] [address] [facility] [place], [address], 08/08/2024 14:36:38 01/19/20 25 01/19/2025 LIPID PANEL W/ CHOL/ HDL RATIO cholesterol, total 194 mg/dL 100-19 9 Not Available [facility] ([facility]) [address] [place], [address], 01/19/2025 13:12:06 01/19/20 25 01/19/2025 LIPID PANEL W/ CHOL/ HDL RATIO triglyceride s 104 mg/dL 0-149 Not Available [facility] ([facility]) [address] [place], [address], 01/19/2025 13:12:06 01/19/20 25 01/19/2025 LIPID PANEL W/ CHOL/ HDL RATIO HDL cholesterol 60 mg/dL >39 Not Available [facility] ([facility]) [address] [place], [address], 01/19/2025 13:12:06 01/19/20 25 01/19/2025 LIPID PANEL W/ CHOL/ HDL RATIO VLDL cholesterol samuel 19 mg/dL 5-40 Not Available [facility] ([facility]) [address] [place], [address], 01/19/2025 13:12:06 01/19/20 25 01/19/2025 LIPID PANEL W/ CHOL/ HDL RATIO LDL chol calc ([facility]) 115 mg/dL 0-99 above high normal Not Available [facility] ([facility]) [address] [place], [address], 01/19/2025 13:12:06 01/19/20 25 01/19/2025 LIPID PANEL W/ CHOL/ HDL RATIO T. chol/HDL ratio 3.2 ratio 0.0-4. 4 T. Chol/ HDL Ratio Men Women 1/2 Avg.R isk 3.4 3.3 Avg.R isk 5.0 4.4 2X Avg.R isk 9.6 7.1 3X Avg.R isk 23.4 11.0 Not Available [facility] ([facility]) [address] [place], [address], 01/19/2025 13:12:06 01/19/20 25 01/19/2025 TSH+F REE T4 TSH 2.400 uIU/m L 0.450- 4.500 Not Available [facility] ([facility]) [address] [place], [address], 01/19/2025 13:12:07 01/19/20 25 01/19/2025 TSH+F REE T4 T4,free(dire ct) 1.10 NG/dL 0.82-1 .77 Not Available [facility] ([facility]) [address] [place], [address], 01/19/2025 13:12:07 01/19/20 25 01/19/2025 COMP. METAB OLIC PANEL (14) glucose 86 mg/dL 70-99 Not Available [facility] ([facility]) [address] [place], [address], 01/19/2025 13:12:07 01/19/20 25 01/19/2025 COMP. METAB OLIC PANEL (14) BUN 14 mg/dL 6-24 Not Available [facility] ([facility]) [address] [facility], [address], 01/19/2025 13:12:07 01/19/20 25 01/19/2025 COMP. METAB OLIC PANEL (14) creatinine 1.39 mg/dL 0.57-1 .00 above high normal Not Available [facility] ([facility]) [address] [facility] [place], [address], 01/19/2025 13:12:07 01/19/20 25 01/19/2025 COMP. METAB OLIC PANEL (14) eGFR 48 mL/mi n/1.7 3 >59 below low normal Not Available [facility] ([facility]) [address] [place], [address], 01/19/2025 13:12:07 01/19/20 25 01/19/2025 COMP. METAB OLIC PANEL (14) BUN/creatini ne ratio 10 9-23 Not Available [facility] ([facility]) [address] [facility] [place], [address], 01/19/2025 13:12:07 01/19/20 25 01/19/2025 COMP. METAB OLIC PANEL (14) sodium 138 mmol/ L 134-14 4 Not Available [facility] ([facility]) [address] [facility] [place], [address], 01/19/2025 13:12:07 01/19/20 25 01/19/2025 COMP. METAB OLIC PANEL (14) potassium 4.1 mmol/ L 3.5-5. 2 Not Available [facility] ([facility]) [address] [facility] [place], [address], 01/19/2025 13:12:07 01/19/20 25 01/19/2025 COMP. METAB OLIC PANEL (14) chloride 102 mmol/ L 96-106 Not Available [facility] ([facility]) [address] [place], [address], 01/19/2025 13:12:07 01/19/20 25 01/19/2025 COMP. METAB OLIC PANEL (14) carbon dioxide, total 19 mmol/ L 20-29 below low normal Not Available [facility] ([facility]) [address] [place], [address], 01/19/2025 13:12:07 01/19/20 25 01/19/2025 COMP. METAB OLIC PANEL (14) calcium 9.5 mg/dL 8.7-10 .2 Not Available [facility] ([facility] [address] [facility] [place], [address], 01/19/2025 13:12:07 01/19/20 25 01/19/2025 COMP. METAB OLIC PANEL (14) protein, total 7.2 g/dL 6.0-8. 5 Not Available [facility] ([facility]) [address] [facility] [place], [address], 01/19/2025 13:12:07 01/19/20 25 01/19/2025 COMP. METAB OLIC PANEL (14) albumin 4.4 g/dL 3.9-4. 9 Not Available [facility] ([facility]) [address] [facility] [place], [address], 01/19/2025 13:12:07 01/19/20 25 01/19/2025 COMP. METAB OLIC PANEL (14) globulin, total 2.8 g/dL 1.5-4. 5 Not Available [facility] ([facility]) [address] [facility] [place], [address], 01/19/2025 13:12:07 01/19/20 25 01/19/2025 COMP. METAB OLIC PANEL (14) bilirubin, total <0.2 mg/dL 0.0-1. 2 Not Available [facility] ([facility]) [address] [facility] [place], [address], 01/19/2025 13:12:07 01/19/20 25 01/19/2025 COMP. METAB OLIC PANEL (14) alkaline phosphatase 89 IU/L 44-121 Not Available [facility] ([facility] [address] [place], [address], 01/19/2025 13:12:07 01/19/20 25 01/19/2025 COMP. METAB OLIC PANEL (14) AST (SGOT) 30 IU/L 0-40 Not Available [facility] ([facility]) [address] [place], [address], 01/19/2025 13:12:07 01/19/20 25 01/19/2025 COMP. METAB OLIC PANEL (14) ALT (SGPT) 32 IU/L 0-32 Not Available [facility] ([facility]) [address] [facility] [place], [address], 01/19/2025 13:12:07 01/19/20 25 01/19/2025 VITAM IN B12+F OLATE vitamin B12 >2000 pg/mL 232-12 45 above high normal Not Available [facility] ([facility]) [address] [facility] [place], [address], 01/19/2025 13:12:08 01/19/20 25 01/19/2025 VITAM IN B12+F OLATE folate (folic acid), serum 8.8 NG/mL >3.0 A serum folat e ivett ntrat ion of less than 3.1 ng/mL is consi dered to repre sent clini samuel defic iency . Not Available [facility] ([facility]) [address] [place], [address], 01/19/2025 13:12:08 01/19/20 25 01/19/2025 HEMOG LOBIN A1C hemoglobin A1C 5.4 % 4.8-5. 6 Predi abete s: 5.7 - 6.4 Diabe naty: >6.4 Glyce maria fernanda contr ol for adult s with diabe naty: <7.0 Not Available [facility] ([facility]) [address] [place], [address], 01/19/2025 13:12:08 01/19/20 25 01/19/2025 INSUL IN insulin 28.3 uIU/m L 2.6-24 .9 above high normal Not Available [facility] ([facility]) [address] [place], [address], 01/19/2025 13:12:09 01/19/20 25 01/19/2025 CBC WITH DIFFE RENTI AL/PL ATELE T WBC 11.5 x10e3 /uL 3.4-10 .8 above high normal Not Available [facility] ([facility]) [address] [place], [address], 01/19/2025 13:12:09 01/19/20 25 01/19/2025 CBC WITH DIFFE RENTI AL/PL ATELE T RBC 4.76 x10e6 /uL 3.77-5 .28 Not Available [facility] ([facility]) [address] [place], [address], 01/19/2025 13:12:09 01/19/20 25 01/19/2025 CBC WITH DIFFE RENTI AL/PL ATELE T hemoglobin 14.3 g/dL 11.1-1 5.9 Not Available [facility] ([facility]) [address] [place], [address], 01/19/2025 13:12:09 01/19/20 25 01/19/2025 CBC WITH DIFFE RENTI AL/PL ATELE T hematocrit 43.2 % 34.0-4 6.6 Not Available [facility] ([facility]) [address] [place], [address], 01/19/2025 13:12:09 01/19/20 25 01/19/2025 CBC WITH DIFFE RENTI AL/PL ATELE T MCV 91 fL 79-97 Not Available [facility] ([facility]) [address] [place], [address], 01/19/2025 13:12:09 01/19/20 25 01/19/2025 CBC WITH DIFFE RENTI AL/PL ATELE T MCH 30.0 pg 26.6-3 3.0 Not Available [facility] ([facility]) [address] [facility] [place], [address], 01/19/2025 13:12:09 01/19/20 25 01/19/2025 CBC WITH DIFFE RENTI AL/PL ATELE T MCHC 33.1 g/dL 31.5-3 5.7 Not Available [facility] ([facility]) [address] [place], [address], 01/19/2025 13:12:09 01/19/20 25 01/19/2025 CBC WITH DIFFE RENTI AL/PL ATELE T RDW 12.4 % 11.7-1 5.4 Not Available [facility] ([facility]) [address] [place], [address], 01/19/2025 13:12:09 01/19/20 25 01/19/2025 CBC WITH DIFFE RENTI AL/PL ATELE T platelets 262 x10e3 /uL 150-45 0 Not Available [facility] ([facility]) [address] [facility], [place], [address], 01/19/2025 13:12:09 01/19/20 25 01/19/2025 CBC WITH DIFFE RENTI AL/PL ATELE T neutrophils 65 % notest ab. Not Available [facility] ([facility]) [address] [place], [address], 01/19/2025 13:12:09 01/19/20 25 01/19/2025 CBC WITH DIFFE RENTI AL/PL ATELE T lymphs 23 % notest ab. Not Available [facility] ([facility]) [address] [place], [address], 01/19/2025 13:12:09 01/19/20 25 01/19/2025 CBC WITH DIFFE RENTI AL/PL ATELE T monocytes 7 % notest ab. Not Available [facility] ([facility]) [address] [facility], [place], [address], 01/19/2025 13:12:09 01/19/20 25 01/19/2025 CBC WITH DIFFE RENTI AL/PL ATELE T eos 4 % notest ab. Not Available [facility] ([facility]) [address] [facility], [place], [address], 01/19/2025 13:12:09 01/19/20 25 01/19/2025 CBC WITH DIFFE RENTI AL/PL ATELE T basos 1 % notest ab. Not Available [facility] ([facility]) [address] [place], [address], 01/19/2025 13:12:09 01/19/20 25 01/19/2025 CBC WITH DIFFE RENTI AL/PL ATELE T neutrophils (absolute) 7.4 x10e3 /uL 1.4-7. 0 above high normal Not Available [facility] ([facility]) [address] [place], [address], 01/19/2025 13:12:09 01/19/20 25 01/19/2025 CBC WITH DIFFE RENTI AL/PL ATELE T lymphs (absolute) 2.7 x10e3 /uL 0.7-3. 1 Not Available [facility] ([facility]) [address] [place], [address], 01/19/2025 13:12:09 01/19/20 25 01/19/2025 CBC WITH DIFFE RENTI AL/PL ATELE T monocytes(ab solute) 0.8 x10e3 /uL 0.1-0. 9 Not Available [facility] ([facility]) [address] [place], [address], 01/19/2025 13:12:09 01/19/20 25 01/19/2025 CBC WITH DIFFE RENTI AL/PL ATELE T eos (absolute) 0.5 x10e3 /uL 0.0-0. 4 above high normal Not Available [facility] ([facility]) [address] [facility] [place], [address], 01/19/2025 13:12:09 01/19/20 25 01/19/2025 CBC WITH DIFFE RENTI AL/PL ATELE T baso (absolute) 0.1 x10e3 /uL 0.0-0. 2 Not Available [facility] ([facility]) [address] [place], [address], 01/19/2025 13:12:09 01/19/20 25 01/19/2025 CBC WITH DIFFE RENTI AL/PL ATELE T immature granulocytes 0 % notest ab. Not Available [facility] ([facility]) [address] [facility] [place], [address], 01/19/2025 13:12:09 01/19/20 25 01/19/2025 CBC WITH DIFFE RENTI AL/PL ATELE T immature grans (abs) 0.0 x10e3 /uL 0.0-0. 1 Not Available [facility] ([facility]) [address] [place], [address], 01/19/2025 13:12:09 02/22/20 25 02/22/2025 Sex hormo ne simone ng globu ken [Mole s/vol ume] in Serum or Plasm a sex hormone binding globulin [moles/volum e] in serum or plasma text: 24.6-1 22.0 Not Available Not Available 04/01/2025 14:48:11 02/22/20 25 02/24/2025 Testo stero ne Free [Mass /volu me] in Serum or Plasm a testosterone free [mass/volume ] in serum or plasma text: 0.0-4. 2 Not Available Not Available 04/01/2025 14:48:11 02/22/2003/06/2025 Testo stero ne [Mass /volu me] in Serum or Plasm a testosterone [mass/volume ] in serum or plasma This test was devel oped and its perfo rmanc e jay cteri stics deter mined by [facility]. It has not been clear ed or appro zelda by the Food and Drug Admin istra tion. Refer ence Range : Adult Femal es Preme nopau yvonne 10 - 55 Postm enopa usal 7 - 40 Not Available Not Available 04/01/2025 14:48:11 02/22/2002/22/2025 Estra diol (E2) [Mass /volu me] in Serum or Plasm a estradiol (E2) [mass/volume ] in serum or plasma Adult Femal e Range Folli cular phase 12.5 - 166.0 Ovula tion phase 85.8 - 498.0 Lutea l phase 43.8 - 211.0 Postm enopa usal <6.0 - 54.7 Pregn selvin 1st trime ster 215.0 - >4300 .0 Elyse ECLIA metho dolog y Not Available Not Available 04/01/2025 14:48:11 02/22/2002/22/2025 Folli tropi n [Unit s/vol ume] in Serum or Plasm a follitropin [units/volum e] in serum or plasma Adult Femal e Range Folli cular phase 3.5 - 12.5 Ovula tion phase 4.7 - 21.5 Lutea l phase 1.7 - 7.7 Postm enopa usal 25.8 - 134.8 Not Available Not Available 04/01/2025 14:48:10 02/22/2002/24/2025 Mulle reena inhib iting subst ance [Mass /volu me] in Serum or Plasm a mullerian inhibiting substance [mass/volume ] in serum or plasma For assay s emplo fritz antib odies , the possi bilit y exist s for inter feren ce by heter ophil e antib odies in the sampl es.1 1.Racquel Quevedo. Inter feren lesia in Immun oassa ys - still deb bhandari t. Clin. Chem. 2000; 46: 1037- 1038. This test was marci rangel and its perfo rmanc e jay cteri stics deter mined by [facility]. It has not been clear ed or appro zelda by the Food and Drug Admin istra tion. Refer ence Range : Femal es 41 - 46y: 0.26 - 5.81 Media n 0.58 AMH ivett ntrat ions of >= 1.06 ng/mL is corre lated with a gildardo r respo nse to ovari an stimu latio n, produ joe more retri evabl e oocyt es and highe r odds of live accor ding to Lizeth jackson et al. Dagmar olguin and Rosales olguin. 2010: 94:28 24-28 27. The [facility]H test metho d corre lates with the study metho d with a slope of 0.94. Femal es at risk of ovari an hyper stimu latio n syndr ome or polyc ystic ovari an syndr ome (PCOS ) may exhib it eleva tank serum AMH ivett ntrat ions. AMH level s from PCOS patie nts may be 2 to 5 fold highe r than age-a pprop riate refer ence inter marilee value s. Granu losa cell tumor s of the ovary may secre te AMH along with other tumor marke rs. [place] tank AMH is not speci fic for carmelita marcelino , and the assay shoul d not be used exclu sivel y to diagn ose or exclu de an AMH-s ecret ing ovari an tumor . Not Available Not Available 04/01/2025 14:48:10 03/22/20 25 03/23/2025 BASIC METAB OLIC PANEL (8) glucose 77 mg/dL 70-99 Not Available [facility] ([facility]) [address] [facility] [place], [address], 03/23/2025 07:07:55 03/22/20 25 03/23/2025 BASIC METAB OLIC PANEL (8) BUN 16 mg/dL 6-24 Not Available [facility] ([facility]) [address] [place], [address], 03/23/2025 07:07:55 03/22/20 25 03/23/2025 BASIC METAB OLIC PANEL (8) creatinine 1.18 mg/dL 0.57-1 .00 above high normal Not Available [facility] ([facility]) [address] [place], [address], 03/23/2025 07:07:55 03/22/20 25 03/23/2025 BASIC METAB OLIC PANEL (8) eGFR 58 mL/mi n/1.7 3 >59 below low normal Not Available [facility] ([facility]) [address] [facility] [place], [address], 03/23/2025 07:07:55 03/22/20 25 03/23/2025 BASIC METAB OLIC PANEL (8) BUN/creatini ne ratio 14 9-23 Not Available [facility] ([facility]) [address] [facility] [place], [address], 03/23/2025 07:07:55 03/22/20 25 03/23/2025 BASIC METAB OLIC PANEL (8) sodium 140 mmol/ L 134-14 4 Not Available [facility] ([facility]) [address] [facility] [place], [address], 03/23/2025 07:07:55 03/22/20 25 03/23/2025 BASIC METAB OLIC PANEL (8) potassium 4.4 mmol/ L 3.5-5. 2 Not Available [facility] ([facility]) [address] [place] [place], [address], 03/23/2025 07:07:55 03/22/20 25 03/23/2025 BASIC METAB OLIC PANEL (8) chloride 103 mmol/ L 96-106 Not Available [facility] ([facility]) [address] [place], [address], 03/23/2025 07:07:55 03/22/20 25 03/23/2025 BASIC METAB OLIC PANEL (8) carbon dioxide, total 22 mmol/ L 20- Not Available [facility] ([facility]) [address] [place], [address], 03/23/2025 07:07:55 03/22/20 25 03/23/2025 BASIC METAB OLIC PANEL (8) calcium 9.3 mg/dL 8.7-10 .2 Not Available [facility] ([facility]) [address] [place], [address], 03/23/2025 07:07:55 04/11/20 25 04/12/2025 LIPID PANEL W/ CHOL/ HDL RATIO cholesterol, total 214 mg/dL 100-19 9 above high normal Not Available [facility] ([facility]) [address] [place], [address], 04/12/2025 09:08:45 04/11/20 25 04/12/2025 LIPID PANEL W/ CHOL/ HDL RATIO triglyceride s 54 mg/dL 0-149 Not Available [facility] ([facility]) [address] [place], [address], 04/12/2025 09:08:45 04/11/20 25 04/12/2025 LIPID PANEL W/ CHOL/ HDL RATIO HDL cholesterol 73 mg/dL >39 Not Available [facility] ([facility]) [address] [place], [address], 04/12/2025 09:08:45 04/11/20 25 04/12/2025 LIPID PANEL W/ CHOL/ HDL RATIO VLDL cholesterol samuel 10 mg/dL 5-40 Not Available [facility] ([facility]) [address] [place], [address], 04/12/2025 09:08:45 04/11/20 25 04/12/2025 LIPID PANEL W/ CHOL/ HDL RATIO LDL chol calc ([facility]) 131 mg/dL 0-99 above high normal Not Available [facility] ([facility]) [address] [place], [address], 04/12/2025 09:08:45 04/11/20 25 04/12/2025 LIPID PANEL W/ CHOL/ HDL RATIO T. chol/HDL ratio 2.9 ratio 0.0-4. 4 T. Chol/ HDL Ratio Men Women 1/2 Avg.R isk 3.4 3.3 Avg.R isk 5.0 4.4 2X Avg.R isk 9.6 7.1 3X Avg.R isk 23.4 11.0 Not Available [facility] ([facility]) [address] [place], [address], 04/12/2025 09:08:45 04/11/20 25 04/12/2025 TSH+F REE T4 TSH 1.610 uIU/m L 0.450- 4.500 Not Available [facility] ([facility]) [address] [place], [address], 04/12/2025 09:08:46 04/11/20 25 04/12/2025 TSH+F REE T4 T4,free(dire ct) 1.23 NG/dL 0.82-1 .77 Not Available [facility] ([facility]) [address] [place], [address], 04/12/2025 09:08:46 04/11/20 25 04/12/2025 COMP. METAB OLIC PANEL (14) glucose 84 mg/dL 70-99 Not Available [facility] ([facility]) [address] [place], [address], 04/12/2025 09:08:47 04/11/20 25 04/12/2025 COMP. METAB OLIC PANEL (14) BUN 17 mg/dL 6-24 Not Available [facility] ([facility]) [address] [place], [address], 04/12/2025 09:08:47 04/11/20 25 04/12/2025 COMP. METAB OLIC PANEL (14) creatinine 1.29 mg/dL 0.57-1 .00 above high normal Not Available [facility] ([facility]) [address] [place], [address], 04/12/2025 09:08:47 04/11/20 25 04/12/2025 COMP. METAB OLIC PANEL (14) eGFR 52 mL/mi n/1.7 3 >59 below low normal Not Available [facility] ([facility]) [address] [place], [address], 04/12/2025 09:08:47 04/11/20 25 04/12/2025 COMP. METAB OLIC PANEL (14) BUN/creatini ne ratio 13 9-23 Not Available [facility] ([facility]) [address] [facility], [place], [address], 04/12/2025 09:08:47 04/11/20 25 04/12/2025 COMP. METAB OLIC PANEL (14) sodium 137 mmol/ L 134-14 4 Not Available [facility] ([facility]) [address] [facility], [place], [address], 04/12/2025 09:08:47 04/11/20 25 04/12/2025 COMP. METAB OLIC PANEL (14) potassium 5.0 mmol/ L 3.5-5. 2 Not Available [facility] ([facility]) [address] [facility], [place], [address], 04/12/2025 09:08:47 04/11/20 25 04/12/2025 COMP. METAB OLIC PANEL (14) chloride 100 mmol/ L 96-106 Not Available [facility] ([facility]) [address] [facility], [place], [address], 04/12/2025 09:08:47 04/11/20 25 04/12/2025 COMP. METAB OLIC PANEL (14) carbon dioxide, total 22 mmol/ L Not Available [facility] ([facility]) [address] [place] [place], [address], 04/12/2025 09:08:47 04/11/20 25 04/12/2025 COMP. METAB OLIC PANEL (14) calcium 10.5 mg/dL 8.7-10 .2 above high normal Not Available [facility] ([facility]) [address] [place] [place], [address], 04/12/2025 09:08:47 04/11/20 25 04/12/2025 COMP. METAB OLIC PANEL (14) protein, total 7.7 g/dL 6.0-8. 5 Not Available [facility] ([facility]) [address] [place] [place], [address], 04/12/2025 09:08:47 04/11/20 25 04/12/2025 COMP. METAB OLIC PANEL (14) albumin 4.7 g/dL 3.9-4. 9 Not Available [facility] ([facility]) [address] [place], [address], 04/12/2025 09:08:47 04/11/20 25 04/12/2025 COMP. METAB OLIC PANEL (14) globulin, total 3.0 g/dL 1.5-4. 5 Not Available [facility] ([facility]) [address] [place], [address], 04/12/2025 09:08:47 04/11/20 25 04/12/2025 COMP. METAB OLIC PANEL (14) bilirubin, total 0.5 mg/dL 0.0-1. 2 Not Available [facility] ([facility]) [address] [place] [place], [address], 04/12/2025 09:08:47 04/11/20 25 04/12/2025 COMP. METAB OLIC PANEL (14) alkaline phosphatase 73 IU/L 44-121 Not Available [facility] [address] [place], [address], 04/12/2025 09:08:47 04/11/20 25 04/12/2025 COMP. METAB OLIC PANEL (14) AST (SGOT) 18 IU/L 0-40 Not Available [facility] ([facility]) [address] [place], [address], 04/12/2025 09:08:47 04/11/20 25 04/12/2025 COMP. METAB OLIC PANEL (14) ALT (SGPT) 18 IU/L 0-32 Not Available [facility] ([facility]) [address] [place], [address], 04/12/2025 09:08:47 04/11/20 25 04/12/2025 VITAM IN B12+F OLATE vitamin B12 >2000 pg/mL 232-12 45 above high normal Not Available [facility] ([facility]) [address] [place], [address], 04/12/2025 09:08:48 04/11/20 25 04/12/2025 VITAM IN B12+F OLATE folate (folic acid), serum 7.4 NG/mL >3.0 A serum folat e ivett ntrat ion of less than 3.1 ng/mL is consi dered to repre sent clini samuel defic iency . Not Available [facility] ([facility]) [address] [place], [address], 04/12/2025 09:08:48 04/11/2004/12/2025 HEMOG LOBIN A1C hemoglobin A1C 5.1 % 4.8-5. 6 Predi abete s: 5.7 - 6.4 Diabe naty: >6.4 Glyce maria fernanda contr ol for adult s with diabe naty: <7.0 Not Available [facility] ([facility]) [address] [place], [address], 04/12/2025 09:08:49 04/11/2004/12/2025 INSUL IN insulin 9.4 uIU/m L 2.6-24 .9 Not Available [facility] ([facility]) [address] [facility], [place], [address], 04/12/2025 09:08:51 04/11/2004/11/2025 CBC WITH DIFFE RENTI AL/PL ATELE T WBC 8.0 x10e3 /uL 3.4-10 .8 Not Available [facility] ([facility]) [address] [facility], [place], [address], 04/12/2025 09:08:52 04/11/2004/11/2025 CBC WITH DIFFE RENTI AL/PL ATELE T RBC 4.86 x10e6 /uL 3.77-5 .28 Not Available [facility] ([facility]) [address] [facility], [place], [address], 04/12/2025 09:08:52 04/11/2004/11/2025 CBC WITH DIFFE RENTI AL/PL ATELE T hemoglobin 14.7 g/dL 11.1-1 5.9 Not Available [facility] ([facility]) [address] [place], [address], 04/12/2025 09:08:52 04/11/2004/11/2025 CBC WITH DIFFE RENTI AL/PL ATELE T hematocrit 45.4 % 34.0-4 6.6 Not Available [facility] ([facility]) [address] [place], [address], 04/12/2025 09:08:52 04/11/2004/11/2025 CBC WITH DIFFE RENTI AL/PL ATELE T MCV 93 fL 79-97 Not Available [facility] ([facility]) [address] [place], [address], 04/12/2025 09:08:52 04/11/20 25 04/11/2025 CBC WITH DIFFE RENTI AL/PL ATELE T MCH 30.2 pg 26.6-3 3.0 Not Available [facility] ([facility]) [address] [facility], [place], [address], 04/12/2025 09:08:52 04/11/2004/11/2025 CBC WITH DIFFE RENTI AL/PL ATELE T MCHC 32.4 g/dL 31.5-3 5.7 Not Available [facility] ([facility]) [address] [facility], [place], [address], 04/12/2025 09:08:52 04/11/2004/11/2025 CBC WITH DIFFE RENTI AL/PL ATELE T RDW 12.8 % 11.7-1 5.4 Not Available [facility] ([facility]) [address] [facility], [place], [address], 04/12/2025 09:08:52 04/11/2004/11/2025 CBC WITH DIFFE RENTI AL/PL ATELE T platelets 286 x10e3 /uL 150-45 0 Not Available [facility] ([facility]) [address] [facility], [place], [address], 04/12/2025 09:08:52 04/11/2004/11/2025 CBC WITH DIFFE RENTI AL/PL ATELE T neutrophils 63 % notest ab. Not Available [facility] ([facility]) [address] [facility], [place], [address], 04/12/2025 09:08:52 04/11/20 25 04/11/2025 CBC WITH DIFFE RENTI AL/PL ATELE T lymphs 24 % notest ab. Not Available [facility] ([facility]) [address] [place], [address], 04/12/2025 09:08:52 04/11/20 25 04/11/2025 CBC WITH DIFFE RENTI AL/PL ATELE T monocytes 6 % notest ab. Not Available [facility] ([facility]) [address] [place], [address], 04/12/2025 09:08:52 04/11/2004/11/2025 CBC WITH DIFFE RENTI AL/PL ATELE T eos 6 % notest ab. Not Available [facility] ([facility]) [address] [facility], [place], [address], 04/12/2025 09:08:52 04/11/2004/11/2025 CBC WITH DIFFE RENTI AL/PL ATELE T basos 1 % notest ab. Not Available [facility] ([facility]) [address] [place], [address], 04/12/2025 09:08:52 04/11/2004/11/2025 CBC WITH DIFFE RENTI AL/PL ATELE T neutrophils (absolute) 4.9 x10e3 /uL 1.4-7. 0 Not Available [facility] ([facility]) [address] [place], [address], 04/12/2025 09:08:52 04/11/2004/11/2025 CBC WITH DIFFE RENTI AL/PL ATELE T lymphs (absolute) 1.9 x10e3 /uL 0.7-3. 1 Not Available [facility] ([facility]) [address] [place], [address], 04/12/2025 09:08:52 04/11/2004/11/2025 CBC WITH DIFFE RENTI AL/PL ATELE T monocytes(ab solute) 0.5 x10e3 /uL 0.1-0. 9 Not Available [facility] ([facility]) [address] [place], [address], 04/12/2025 09:08:52 04/11/20 25 04/11/2025 CBC WITH DIFFE RENTI AL/PL ATELE T eos (absolute) 0.5 x10e3 /uL 0.0-0. 4 above high normal Not Available [facility] ([facility]) [address] [facility], [place], [address], 04/12/2025 09:08:52 04/11/20 25 04/11/2025 CBC WITH DIFFE RENTI AL/PL ATELE T baso (absolute) 0.1 x10e3 /uL 0.0-0. 2 Not Available [facility] ([facility]) [address] [facility], [place], [address], 04/12/2025 09:08:52 04/11/20 25 04/11/2025 CBC WITH DIFFE RENTI AL/PL ATELE T immature granulocytes 0 % notest ab. Not Available [facility] ([facility]) [address] [facility], [place], [address], 04/12/2025 09:08:52 04/11/2004/11/2025 CBC WITH DIFFE RENTI AL/PL ATELE T immature grans (abs) 0.0 x10e3 /uL 0.0-0. 1 Not Available [facility] ([facility]) [address] [facility], [place], [address], 04/12/2025 09:08:52 07/18/20 24 07/18/2024 XR, chest , 2 view No observ ation record ed. [email or web address] [facility] [address], [place], [address], 07/20/2024 15:34:23 07/20/20 24 07/20/2024 US, kidne y No observ ation record ed. [facility] [address], [place], [address], 07/24/2024 18:05:30 01/09/20 25 08/25/2023 MAMMO , jose martine latricia, digit al, bilat eral No observ ation record ed. BARCODE Not Available 2024 19:59:41 01/25/2001/23/2025 MAMMO , montana shelleyg, digit al, bilat eral No observ ation record ed. [email or web address] [facility] [address], [place], [address], 03/05/2025 19:06:16 Result Notes None recorded. Problems Name Problem SNOMED Code Status Onset Date Resolution Date Notes Provider Name and Address Organization Details Recorded Time Generalized anxiety disorder 41928181 Active 2023 BALTA Dalton Attn: Marcos benton,[address] [place], [address], [place] [facility] 4 18:12:08 Long-term drug therapy Active 2023 BALTA Dalton Attn: Marcos benton,[address] [place], [address], [place] [facility] 4 18:12:09 Obesity 971080206 Active 2023 BALTA Dalton Attn: Marcos benton,[address] [place], [address], [place] [facility] 4 18:12:27 Difficulty swallowing food 666696243 Active 2023 BALTA Dalton Attn: Marcos benton,[address] [place], [address], [place] [facility] 4 18:12:53 Fatigue 41819420 Active 2023 BALTA Dalton Attn: Marcos benton,[address] [place], [address], [place] [facility] 4 09:09:22 Body mass index 25-29 - overweight 046595377 Active 2024 Miki Smith [place] null, [place] [facility] 5 08:57:01 Major depressive disorder 542883475 Active 2024 BALTA Dalton Attn: Marcos benton,[address] [facility], [place], [address], [facility] 5 09:06:27 Positive screening for depression on PHQ-9 (Patient Health Questionnai re 9) 7984902651196 00 Active 2024 BALTA Dalton Attn: Marcos benton,[address] [facility], [place], [address], [facility] 5 09:09:23 Overweight 715161919 Active 2024 BALTA Dalton Attn: Marcos benton,[address] [facility], [place], [address], [facility] 5 10:02:24 Problem Notes None recorded. Procedures Surgical History Date Name Laterality Status Provider Name and Address Organization Details Recorded Time perinasal sinusotomy completed Miki Smith MA [facility] 07/20/2024 15:18:16 Imaging Results None recorded. Procedure Notes None recorded. Medical Equipment None Reported. Allergies No known drug allergies Medications Name Sig Start Date Stop Date Status Note LastModified by Organization Details LastModified Time Prescript ion - Prior Authoriza tion Request active Not Available Not Available Not Available promethaz ine-DM 6.25 mg-15 mg/5 mL oral syrup TAKE 5 ML BY MOUTH AT BEDTIME NEEDED FOR COUGH. 07/20 completed Not Available Not Available Not Available doxycycli ne hyclate 100 mg capsule Take 1 capsule twice a day by oral route with meal(s). 08/18 completed Not Available Not Available Not Available tolterodi ne ER 4 mg capsule,e xtended release 24 hr 07/20 completed Not Available Not Available Not Available spironola ctone 100 mg tablet TAKE [...] Available Not Available estradiol 0.05 mg/24 hr semiweekl y transderm al patch APPLY 1 PATCH TOPICALL Y TO THE SKIN 2 TIMES A WEEK DIRECTED 07/20 completed Not Available Not Available Not Available ciproflox acin 500 mg tablet TAKE 1 TABLET BY MOUTH EVERY 12 HOURS 02/14 completed Not Available Not Available Not Available minoxidil 2.5 mg tablet TAKE 1 TABLET BY MOUTH DAILY active Not Available Not Available No t Available benzonata te 100 mg capsule TAKE 1 TO 2 CAPSULES BY MOUTH THREE TIMES DAILY NEEDED FOR COUGH. MAXIMUM 6 CAPSULE IN 24 HOURS FOR DAYTIME COUGH 07/20 completed Not Available Not Available Not Available hydrocodo ne 7.5 mg-acetam inophen 325 mg tablet TAKE 1 TABLET BY MOUTH EVERY 4 HOURS NEEDED 02/16 completed Not Available Not Available Not Available cephalexi n 500 mg capsule TAKE 1 CAPSULE BY MOUTH FOUR TIMES DAILY 12/31 completed Not Available Not Available Not Available triamcino lone acetonide 0.1 % topical ointment APPLY EXTERNAL LY TO THE AFFECTED AREA TWICE DAILY NEEDED FOR ITCHING active Not Available Not Available No t Available clotrimaz ole-betam ethasone 1 %-0.05 % topical cream APPLY LIBERALL Y TOPICALL Y TO THE AFFECTED AREA TWICE DAILY 12/14 completed Not Available Not Available Not Available progester one micronize d 200 mg capsule TAKE 1 CAPSULE BY MOUTH EVERY DAY active Not Available Not Available No t Available sertralin e 25 mg tablet TAKE 1 TABLET BY MOUTH EVERY DAY 07/20 completed Not Available Not Available Not Available hydrocort isone 2.5 % topical cream APPLY TO SPOTS TWICE DAILY active Not Available Not Available No t Available mometason e 0.1 % topical ointment APPLY TO THE AFFECTED AREA TWICE DAILY X 1-2 WEEKS DIRECTED 12/14 completed Not Available Not Available Not Available mupirocin 2 % topical ointment APPLY EXTERNAL LY TO THE BRIDGE OF THE NOSE THREE TIMES DAILY FOR 5 DAYS 12/31 completed Not Available Not Available Not Available methylpre dnisolone 4 mg tablets in a dose pack FOLLOW PACKAGE DIRECTIO NS 08/10 completed Not Available Not Available Not Available ondansetr on 4 mg disintegr ating tablet DISSOLVE 1 TABLET ON THE TONGUE EVERY 12 HOURS FOR 3 DAYS NEEDED FOR NAUSEA OR VOMITING 12/14 completed Not Available Not Available Not Available cefdinir 300 mg capsule TAKE 1 CAPSULE BY MOUTH EVERY 12 HOURS 08/10 completed Not Available Not Available Not Available sertralin e 50 mg tablet Take 1 tablet every day by oral route. 2024 active Not Available Not Available Not Avai lable progester one micronize d 100 mg capsule TAKE 1 CAPSULE BY MOUTH EVERY DAY AT BEDTIME 07/20 completed Not Available Not Available Not Available bupropion HCl XL 150 mg 24 hr tablet, extended release TAKE 1 TABLET BY MOUTH EVERY DAY 02/14 completed pt stopped states that she noticed hair loss Not Available Not Available Not Available Lyllana 0.025 mg/24 hr transderm al patch APPLY 1 PATCH TOPICALL Y TO THE SKIN 2 TIMES A WEEK active Not Available Not Available No t Available Ozempic 1 mg/dose (4 mg/3 mL) subcutane ous pen injector Inject 1 mL by subcutan eous route. 12/14 completed Not Available Not Available Not Available semagluti de (weight loss) active Not Available Not Available Not Available Vitals Date Recorded Systolic And Diastolic Provider Name and Address Organization Details Last Updated DateTime 12/14/2024 110/80 mm[Hg] BALTA Dalton Attn: [place], [address], [facility] 12/14/2024 09:17:22 Date Recorded Body height Body mass index (BMI) Body weight Oxygen saturation Oxygen saturation in Arterial blood by Pulse oximetry Heart rate Respiratory rate Systolic And Diastolic Provider Name and Address Organization Details Last Updated DateTime 162.56 cm 26.8 kg/m2 23678.4 1 g 98 % 98 % 85 /min 20 /min 118/82 mm[Hg] Miki Smith MA MD - [facility] 08:58:24 Date Recorded Respiratory rate Provider Name a nd Address Organization Details Last Updated DateTime 02/14/2025 16 /min BALTA Dalton Attn: Accounting,[address] [facility], [place], [address], [facility] 03/05/2025 19:06:07 Date Recorded Body height Body mass index (BMI) Body weight Oxygen saturation Oxygen saturation in Arterial blood by Pulse oximetry Heart rate Systolic And Diastolic Provider Name and Address Organization Details Last Updated DateTime 5 162.56 cm 26.6 kg/m2 01543.8 2 g 98 % 98 % 80 /min 111/82 mm[Hg] Miki Smith MA [facility] 5 09:58:27 Date Recorded Body height Body mass index (BMI) Body weight Oxygen saturation Oxygen saturation in Arterial blood by Pulse oximetry Heart rate Respiratory rate Systolic And Diastolic Provider Name and Address Organization Details Last Updated DateTime 4 162.56 cm 34.6 kg/m2 51091.2 2 g 98 % 98 % 77 /min 20 /min 126/82 mm[Hg] Miki Smith MA [facility] 4 15:21:34 Date Recorded Body height Body mass index (BMI) Body weight Respiratory rate Oxygen saturation Oxygen saturation in Arterial blood by Pulse oximetry Heart rate Systolic And Diastolic Provider Name and Address Organization Details Last Updated DateTime 4 162.56 cm 30.6 kg/m2 95356.4 4 g 20 /min 98 % 98 % 84 /min 122/82 mm[Hg] Miki Smith MA [facility] 4 15:20:51 Social History Question Answer Notes LastModified by Organizat ion Details LastModified Time Tobacco Smoking Status Never Smoker Miki Smith MA null, [facility] 02/17/2024 15:19:29 Do You Have An Advance [...] Date Of Your Most Recent Tobacco Screening? 02/14/2025 Information not available 02/14/2025 Do You Use Your Seat Belt Or Car Seat Routinely? Yes Information not available 02/16/2024 Do You Have Smoke And Carbon Monoxide Detectors In Your Home? Yes Information not available 02/16/2024 Do You Use Sunscreen Routinely? Yes Information not available 02/17/2024 Has Tobacco Cessation Counseling Been Provided? Yes Information not available 02/16/2024 On What Date Was Tobacco Cessation Counseling Provided? 02/14/2025 Information not available 02/14/2025 Sex: Female Functional Status Question Answer Note [...] 12/14/2024 Are you able to care for yourself independently? Yes Information not available 02/16/2024 What is your exercise level? Moderate Information not available 02/17/2024 Mental Status Question Answer Note LastModified by Organization D etails LastModified Time Do you feel stressed (tense, restless, nervous, or anxious, or unable to sleep at night)? [id number] Information not available 07/20/2024 Family History Relationship Description Onset Age of this Age Resolved Age Notes LastModified by Organization Details LastModified Time Mother Malignant neoplasm of colon [email or web address] Not available 2023 15:28:40 [...] High Blood Pressure N Atrial Fibrillation N Thyroid Problems Y Kidney or Bladder Problems N Blood Clots N COPD N Depression N GI Problems N Skin Problems N Anemia N Heart Attack ([place]) N Anxiety Disorder Y Diabetes N Muscle, [...] 11:20:16 Influenza, MDCK, quadrivalent, PF 1 completed JOSE CARLOS [place] - [...] [place], [place] [facility] 07/11/2024 11:20:16 Influenza, split virus, trivalent, preservative 2 completed Miki [place] [facility] 07/11/2024 11:20:16 Influenza, split virus, quadrivalent, PF 0 completed Miki [place] [facility] 07/11/2024 11:20:16 Influenza, split virus, trivalent, PF 5 completed Not Available [facility] 02/14/2025 09:50:43 COVID-19, mRNA, LNP-S, PF, 50 mcg/0.5 mL 5 completed Not Available [facility] 02/14/2025 09:50:43 Past Encounters Encounter ID Performer Location Encounter Start Date Encounter Closed Date Diagnosis/Indication Diagnosis SNOMED-CT Code Diagnosis ICD10 Code Diagnosis IMO Codes Diagnosis Note [id number] Zbigniew Clark MD [facility] [place] [address] [place] [address] 02/17/2024 14:40:15 02/24/2024 11:54:49 Adult health examination 475108256 Z00.00 annual wellness completed Cholesterol screening 27 0133995 Z13.220 fasting lipids due Diabetes m ellitus screening 942048804 Z13.1 a1c screening due Thyroid di sorder screening 624200296 Z13.29 routine thyroid panel due Long-term drug therapy 658385976 Z79.899 cmp, cbc and b12, folate labs are due Generalize d anxiety disorder 56273938 F41.1 stable on sertraline 25mg daily. Body mass index 30+ - obesity 599401072 Z68.34 Obesity 254126419 E66.8 discussed healthy diet, exercise, controllin g carbohydra naty and added sugars in the diet Difficulty swallowing food 397817953 R13.10 EGD has been ordered already. pt is still to schedule. [id number] Zbigniew Clark MD [facility] [address] [place] [address] 07/20/2024 15:06:34 07/25/2024 16:14:13 Fatigue 52776344 R53.83 For fatigue panel we will check to see if the patient had any recent COVID infection by checking COVID-19 IgM antibodies will also check an Carlota bar virus profile as well as iron studies, CBC and CMP for fatigue which is much worse than usual. Sinusitis 31218661 J32.9 We will start a Medrol Dosepak and cefdinir 300 mg twice daily for 7 days [id number] Zbigniew Clark MD [facility] [address] [place] [address] 12/14/2024 08:49:28 12/14/2024 09:22:30 Body mass index 25-29 - overweight 774203869 Z68.26 BMI 26.8 Overweight 555850884 E66 .3 Generalize d anxiety disorder 12584283 F41.1 stable on sertraline 50mg daily. Anxiety is overall stable it is more of a depression exacerbati on at this time Long-term drug therapy 958863099 Z79.899 All labs are due in March Positive s creening for depression on PHQ-9 (Patient Health Questionnaire 9) 0788634850 80639 Z13.31 pt scored a 6 on screening today. We have made the addition of Wellbutrin to her regimen to target depression . Major depr essive disorder 111905165 F32.9 a lot of life stress , especially at home, her lost his job and he had major clinical depression . she is spread then. Add Wellbutrin XL 150 mg daily to target depressive symptoms. Follow-up in February for her routine wellness Cholesterol screening 27 8285282 Z13.220 fasting lipids due Diabetes m ellitus screening 156989888 Z13.1 a1c screening due Thyroid di sorder screening 553044667 Z13.29 routine thyroid panel due Difficulty swallowing food 985965225 R13.10 EGD has been ordered already. pt is still to schedule. [id number] Zbigniew Clark MD [facility] [place] [address] [place] [address] 02/14/2025 09:49:21 02/14/2025 10:27:28 Overweight 870134646 E66.3 Patient has lost weight on semaglutid e compoundin g. Her BMI is almost normal Adult heal th examination 753766779 Z00.00 annual wellness completed Long-term drug therapy 827144841 Z79.899 Labs are up-to-date Generalize d anxiety disorder 71091430 F41.1 stable on sertraline 50mg daily. Improved anxiety no acute concerns Serum crea tinine above reference range 523280909 R79.89 319569 Creatinine is running around 1.39. She is on spironolac tone 100 mg daily and that is the only item that we can connect that maybe causing a slight increase in the creatinine . She is on no other over-the-c ounter medication s and not taking any NSAIDs on a routine basis. We have discussed we may need to discontinu e spironolac tone to see if the creatinine level improves. She has already had a normal kidney ultrasound during this evaluation . We will repeat a metabolic panel in March to reassess Health Concerns Section Related Observation LastModified by Organization Detai ls LastModified Time None Recorded Concern Status LastModified by Organization Details LastModified Time None Recorded Advance Directives Directive N: Payers Insurance Date Sequence Insurance Name Policy Number Policy Harmon Covered Member ID Harmon Member ID Guarantor Name 03/06/[address] [facility] [id number] Sameera Arceo [id number] Sameera Arceo Notes Date Note Type Note Provider Name and Address Organization Details Recorded Time 4 text/html Anxiety/DepressionReported by Patientstable on sertraline therapy. no complaints. BALTA Dalton Attn: Accounting,[address] [facility], [place], [address], [facility] - [facility] 02/23/2024 18:13:27 4 text/html Sinusitis/AllergyReported by PatientHPIFor associated symptoms, patient reportsfacial pain __,sinus pain __, andnasal discharge. For quality, patient reportscongested. For context, patient reportsworse with seasonal allergen exposureandworse with environmental exposure. For alleviating factors, patient reportsnothing gives relief. For location, patient reportsmaxillaryandfrontal . For onset/timing, patient reportsrecurring. For risk factors, patient reportsno current smoking or tobacco use,no history of smoking, andno history of asthma. For prior opinion, patient reportspcp. FatigueReported by PatientHPIFor severity, patient reportsworseningbut reportsnormal sleep patterns,normal activity, andsevere. For timing, patient reportsworse. For context, patient reportssymptoms do not improve on weekends/vacationsbut reportsno problems/stress at work or home. For associated symptoms, patient reportsanxietybut reportsno drug/alcohol withdrawal,no depression,no sleep disturbances,no snoring,periods of not breathing (apnea) have not been observed, andno recent change in weight. For quality, patient reportscontinuous. For duration, patient reportsconstant. For modifying factors, patient reportsno new stressors in lifeandtaking vitamins. BALTA Dalton Attn: Accounting[address] [place], [address], [facility] 08/08/2024 09:09:36 5 text/html Anxiety/DepressionReported by PatientHPIFor quality, patient reportsmood worse. For context, patient reportsmajor life stressorsandfamily problems. For associated symptoms, patient reportsemotional lability,anxiety,depressio n, andanxiety with muscle tensionbut reportsdenies homicidal ideations,no significant weight gain, andno significant weight loss. For severity, patient reportsdenies suicidal ideationsandable to maintain relationships. For duration, patient reportsfrequentandsymptoms lasting over 2 weeks. For onset/timing, patient reportsstill present. For modifying factors, patient reportssocial supportandmedications as directed. FatigueReported by PatientHPIFor severity, patient reportsworseningbut reportsnormal sleep patterns,normal activity, andsevere. For timing, patient reportsworse. For context, patient reportssymptoms do not improve on weekends/vacationsbut reportsno problems/stress at work or home. For associated symptoms, patient reportsanxietybut reportsno drug/alcohol withdrawal,no depression,no sleep disturbances,no snoring,periods of not breathing (apnea) have not been observed, andno recent change in weight. For quality, patient reportscontinuous. For duration, patient reportsconstant. For modifying factors, patient reportsno new stressors in lifeandtaking vitamins. BALTA Dalton Attn: Accounting,[address] [facility], [place], [address], [facility] 01/07/2025 15:49:33 text/html Anxiety/DepressionReported by Patientstable on sertraline 50 mg therapy. no complaints. Things have improved and her anxiety level has gone down as stressors that previously were an issue have calmed down. Biggest complaint of right now continues to be hair thinning and hair loss that does not seem to be improving greatly. She has been on spironolactone 100 mg daily in hopes that this would help but she has not seen much improvement yet. She does continue to be on semaglutide compounded medication and she understands that some of the hair loss may be from her weight loss. She is also on hormone replacement therapy. BALTA Dalton Attn: Accounting,[address] [facility], [place], [address], [facility] 03/05/2025 19:09:40 OBGyn Episode No OBEpisode recorded.
--- OUTSIDE RECORDS SUMMARY | 2025-07-20 16:25 | XMS_ITS | Clinical Summary ---
Author Organization [facility] Address [address] [place] [address] Care Team Providers Care Process Safety Specialist Name Role Phone Unavailable Primary Care Provider Unavailabl e Source Comments [facility],non-owned Affiliates and Associated Physician Practices is amultiple site organization consisting of ambulatory clinics and hospital sitesin [place], [place], [place] and [place]. This disclosure is being madepursuant to the Care Everywhere program and may not contain all information available regarding this patient. 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 Gender Identity Not on file Sexual Orientation Not on file Last Filed Vital Signs Vital Sign Reading Time Taken Comments Blood Pressure 125/71 09/23/2012 9:22 AM CITY SUPERINTENDENT Pulse 95 09/23/2012 9:22 AM CITY SUPERINTENDENT Temperature - - Respiratory Rate 20 09/23/2012 9:22 AM CITY SUPERINTENDENT Oxygen Saturation - - Inhaled Oxygen Concentration - - Weight 72.1 kg (159 lb) 09/23/2012 9:22 AM CITY SUPERINTENDENT Height 162.6 cm (5' 4) 07/22/2012 1:42 PM CITY SUPERINTENDENT Body Mass Index 27.29 07/22/2012 1:42 PM CITY SUPERINTENDENT Plan of Treatment Health Maintenance Due Date [...] patient's age to complete this topic Insurance [facility] Address: [address]
--- OUTSIDE RECORDS SUMMARY | 2025-07-20 16:25 | XMS_ITS | Encounter Summary ---
Author Organization [facility] Address [address] [place] [address] Care Team Providers Care Manager Of Manufacturing Name Role Phone Unavailable Primary Care Provider Unavailabl e Encounter Details Date Type Department Care Team (Late st Contact Info) Description 12/08/2018 Lab Requisition [facility] Care DermPath Lab [address] [facility] [place] [id number] [phone] Galina Bejarano MD [address] 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 Diana Shukla. These tests need not be, and therefore are not, approved by the [place] Food and Drug Administration. The tests are used for clinical purposes. Billing Codes Specimen Charges Stain Charges 97945 1 12:44 PM CDT DERMATOPATHOLOGY LABORATORY Embedded Images 12:44 PM CDT DERMATOPATHOLOGY LABORATORY Pathology/Cytolog y TISSUE SPECIMEN FROM SKIN / Unknown 12/07/2018 12/08/2018 9:10 AM CDT Galina Bejarano MD LAB - PATHOLOGY/CYTOLOGY OR DERABLES Final Result DERMATOPATHOLOGY LABORATORY [facility] - Department of Dermatology [address] [place] [address], 5th [place] [address], [facility] [phone] documented in this encounter Visit Diagnoses Not on filedocumented in this encounter
--- OUTSIDE RECORDS SUMMARY | 2025-07-20 17:33 | XMS_ITS | Encounter Summary ---
Author Organization [facility] Address [address] [facility] [place] [address] Care Team Providers Care Career Services Assistant Name Role Phone Unavailable Primary Care Provider Unavailabl e Encounter Details Date Type Department Care Team (Late st Contact Info) Description 12/08/2018 Lab Requisition [facility] Care DermPath Lab [address] [facility] [place] [phone] Galina Bejarano MD [address] [facility] [address] [place] [address] Social History Tobacco Use Types Packs/Day Years Used Date Smoking Tobacco: Never Smokeless Tobacco: Never Alcohol Use Standard Drinks/Week Comments No 0 (1 standard drink = 0.6 oz pur e alcohol) Comments No Sex and Gender Information Value Date Recorded Sex Assigned at Not on file 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 Diana Shukla. These tests need not be, and therefore are not, approved by the [place] Food and Drug Administration. The tests are used for clinical purposes. Billing Codes Specimen Charges Stain Charges 94768 1 12:44 PM CDT DERMATOPATHOLOGY LABORATORY Embedded Images 12:44 PM CDT DERMATOPATHOLOGY LABORATORY Pathology/Cytolog y TISSUE SPECIMEN FROM SKIN / Unknown 12/07/2018 12/08/2018 9:10 AM CDT Galina Bejarano MD LAB - PATHOLOGY/CYTOLOGY OR DERABLES Final Result DERMATOPATHOLOGY LABORATORY [facility] - Department of Dermatology [address] [place] [address], [address] [place] [address], [facility] [phone] documented in this encounter Visit Diagnoses Not on filedocumented in this encounter
--- OUTSIDE RECORDS SUMMARY | 2025-07-20 17:33 | XMS_ITS | Clinical Summary ---
Author Organization [facility] Address [address] [facility] [place] [address] Care Team Providers Care Adjunct Communications Faculty Member Name Role Phone Unavailable Primary Care Provider Unavailabl e Source Comments [facility],non-owned Affiliates and Associated Physician Practices is amultiple site organization consisting of ambulatory clinics and hospital sitesin [place], [place], [place] and [place]. This disclosure is being madepursuant to the Care Everywhere program and may not contain all information available regarding this patient. 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 Gender Identity Not on file Sexual Orientation Not on file Last Filed Vital Signs Vital Sign Reading Time Taken Comments Blood Pressure 125/71 09/23/2012 9:22 AM ADJUNCT PHILOSOPHY FACULTY Pulse 95 09/23/2012 9:22 AM ADJUNCT PHILOSOPHY FACULTY Temperature - - Respiratory Rate 20 09/23/2012 9:22 AM ADJUNCT PHILOSOPHY FACULTY Oxygen Saturation - - Inhaled Oxygen Concentration - - Weight 72.1 kg (159 lb) 09/23/2012 9:22 AM ADJUNCT PHILOSOPHY FACULTY Height 162.6 cm (5' 4) 07/22/2012 1:42 PM ADJUNCT PHILOSOPHY FACULTY Body Mass Index 27.29 07/22/2012 1:42 PM ADJUNCT PHILOSOPHY FACULTY Plan of Treatment Health Maintenance Due Date [...] patient's age to complete this topic Insurance [facility] Member Subscriber Plan / Payer (Ef fective for All Dates) Name:Sameera Monae Relation to Subscriber:Spouse Name:MARY MONAES Franklyn Subscriber ID:Not on file Payer ID:[id number] (IC) Type:[facility] Address: [phone]
== END 2025-07-20 12:00 | disposition home or self-care (01) ==
PROVIDERS: Emergency Provider Student in an Organized Health Care Education/Training Program; PCP Physician Assistant
DX: N17.9 Acute kidney failure, unspecified (principal); R10.13 Epigastric pain; R82.998 Other abnormal findings in urine; K21.9 Gastro-esophageal reflux disease without esophagitis; K58.9 Irritable bowel syndrome, unspecified; F41.9 Anxiety disorder, unspecified; Z79.899 Other long term (current) drug therapy; Z79.85 Long-term (current) use of injectable non-insulin antidiabetic drugs
CPT/HCPCS: 36415; 74177; 80053; 81001; 83690; 84484; 85025; 87086; 93005; 96361; 96374; 99284; A9270; J7030; Q9967